=== PATIENT | male | born 1945 | race Caucasian/White ===

== ENCOUNTER 2017-12-14 20:54 | Inpatient (IN) | payer OTHER, MEDICARE ==
--- NOTE | 2017-12-14 21:29 | ER Document Report ---
ED General - General Chief Complaint: Respiratory Distress Stated Complaint: DIFFICULTY BREATHING Time Seen by Provider: 12/14/17 21:27 Mode of Arrival: Medic Information source: Patient, Emergency Med Personnel Notes: This is a 72-year-old man with no known medical history (is not seen a doctor in 10 years) who is brought in by EMS with shortness of breath, cough, congestion and fever. Patient was weak and fell and was on the floor. Patient was treated with 2 dual nebs, 125 mg of Solu-Medrol by EMS and transported to the ER. The patient's significant other states that he was on the floor for approximately 15 minutes. - HPI Onset: Last week Onset/Duration: Gradual Quality of pain: No pain Severity: None Pain Level: Denies Associated symptoms: Fever, Shortness of breath. denies: Chest pain Exacerbated by: Denies Relieved by: Denies Similar symptoms previously: No Recently seen / treated by doctor: No - Related Data Allergies/Adverse Reactions: No Known Allergies Allergy (Unverified 12/14/17 21:08) Past Medical History - General Information source: Patient - Social History Smoking Status: Never Smoker Cigarette use (# per day): No Chew tobacco use (# tins/day): No Smoking Education Provided: No Frequency of alcohol use: None Drug Abuse: None Lives with: Family Family History: None Patient has suicidal ideation: No Patient has homicidal ideation: No - Medical History Medical History: Negative Past Surgical History: Reports: Hx Appendectomy Review of Systems - Review of Systems Constitutional: Chills, Fever EENT: No symptoms reported Cardiovascular: No symptoms reported Respiratory: See HPI Gastrointestinal: No symptoms reported Genitourinary: No symptoms reported Male Genitourinary: No symptoms reported Musculoskeletal: No symptoms reported Skin: No symptoms reported Hematologic/Lymphatic: No symptoms reported Neurological/Psychological: No symptoms reported Physical Exam - Vital signs Vitals: Pulse Ox 100 12/14/17 20:55 Notes: Physical exam: GENERAL: 72-year-old male, alert and oriented 3, tachypneic, wheezing, oxygen saturation 90% on room air. HEAD: Atraumatic, normocephalic. EYES: Pupils equal round and reactive to light, extraocular movements intact, sclera anicteric, conjunctiva are normal. ENT: TMs normal, nares patent, oropharynx clear without exudates. Moist mucous membranes. NECK: Normal range of motion, supple without obvious mass or JVD. LUNGS: Bilateral wheezing HEART: Regular rate and rhythm without murmurs, rubs or gallops. ABDOMEN: Soft, normoactive bowel sounds. No tenderness to palpation. No guarding, no rebound. No masses appreciated. EXTREMITIES: Normal range of motion, no pitting or edema. No clubbing or cyanosis. NEUROLOGICAL: Cranial nerves II through XII grossly intact. Normal speech, moving all extremities. PSYCH: Normal mood, normal affect. SKIN: Warm, Dry, normal turgor, no rashes or lesions noted. Course - Re-evaluation Re-evalutation: 12/15/17 03:09 Note: The patient was having fever and shortness of breath and cough and congestion. Clinically he has pneumonia. Blood cultures were sent and IV antibiotics were started. The patient is found to be in acute renal failure and has rhabdomyolysis. He was given an initial fluid bolus and now is being current and converted over to a bicarb drip. A Britton is to be placed. The plan is to follow renal function, continue IV antibiotics, continue IV fluids. - Vital Signs Vital signs: Temp Pulse Resp BP Pulse Ox 23 H 143/67 H 94 12/15/17 00:00 12/14/17 21:01 12/15/17 00:00 - Laboratory Result Diagrams: 12/14/17 22:05 12/14/17 22:05 Laboratory results interpreted by me: 12/14/17 12/14/17 12/14/17 22:05 22:05 22:05 WBC 12.5 H Hgb 13.0 L RDW 15.2 H Seg Neuts % (Manual) 83 H Band Neutrophils % 8 H Lymphocytes % (Manual) 3 L Abs Neuts (Manual) 11.4 H Abs Lymphs (Manual) 0.4 L Sodium 129.7 L Chloride 92 L Carbon Dioxide 21 L BUN 52 H Creatinine 3.11 H Est GFR ( Amer) 24 L Est GFR (Non-Af Amer) 20 L Glucose 128 H Lactic Acid Direct Bilirubin 0.8 H AST 954 H ALT 140 H Creatine Kinase 42959 H CK-MB (CK-2) 58.20 H 12/14/17 12/15/17 22:05 01:15 WBC Hgb RDW Seg Neuts % (Manual) Band Neutrophils % Lymphocytes % (Manual) Abs Neuts (Manual) Abs Lymphs (Manual) Sodium Chloride Carbon Dioxide BUN Creatinine Est GFR ( Amer) Est GFR (Non-Af Amer) Glucose Lactic Acid 3.1 H 3.2 H Direct Bilirubin AST ALT Creatine Kinase CK-MB (CK-2) - Diagnostic Test Radiology reviewed: Image reviewed, Reports reviewed - Left basilar infiltrate - EKG Interpretation by Me Rate: Tachycardia Rhythm: NSR - EKG shows sinus tachycardia with a ventricular rate of 132, no acute ST-T wave changes Critical Care Note - Critical Care Note Total time excluding time spent on procedures (mins): 120 Discharge - Discharge Clinical Impression: Pneumonia, Rhabdomyolysis, Acute renal failure Condition: Serious Disposition: ADMITTED INPATIENT Admitting Provider: Hospitalist Unit Admitted: [facility]
[2017-12-14] MEDS ORDERED: NORMAL SALINE 1000 ML 1,000 ML IV PRN (21:37)
[2017-12-14] MEDS ORDERED: CEFTRIAXONE 1 GM/D5W RTU 1 GM/50 ML RTUPB IV ONE (21:37)
--- NOTE | 2017-12-14 21:45 | RADIOLOGY REPORT (SQ) ---
EXAM DESCRIPTION: CHEST SINGLE VIEW COMPLETED DATE/TIME: 12/14/2017 9:33 pm REASON FOR STUDY: difficulty breathing COMPARISON: None. EXAM PARAMETERS: NUMBER OF VIEWS: One view. TECHNIQUE: Single frontal radiographic view of the chest acquired. RADIATION DOSE: NA LIMITATIONS: None. FINDINGS: LUNGS AND PLEURA: Patchy left basilar airspace disease. No pneumothorax. No significant p leural effusion. Calcified pleural plaques are present in the right chest. MEDIASTINUM AND HILAR STRUCTURES: Age-appropriate contour. HEART AND VASCULAR STRUCTURES: Heart normal in size. Normal vasculature. BONES: No acute findings. HARDWARE: None in the chest. OTHER: No other significant finding. IMPRESSION: Patchy left basilar airspace disease. TECHNICAL DOCUMENTATION: JOB ID: [id number] [id number] 2010 [employer]- All Rights Reserved
[2017-12-14] MEDS ORDERED: CEFTRIAXONE INJ 1000 MG VIAL ONE (21:50)
[2017-12-14] MEDS ORDERED: AZITHROMYCIN INJ 500 MG VIAL IV ONE (22:22)
[2017-12-14] MEDS ORDERED: IPRATROPIUM/ALBUTEROL 0.5-2.5 MG/3 ML AMPUL NEB ONE (22:26)
[2017-12-14 22:35] LABS: HEMATOCRIT 39.1 % (37.9-51.0); MEAN CORPUSCULAR HEMOGLOBIN 27.1 pg (27.0-33.4); MEAN CORPUSCULAR HGB CONC 33.3 g/dL (32.0-36.0); MEAN CORPUSCULAR VOLUME 81 fl (80-97); PLATELET COUNT 222 10^3/uL (150-450); RED BLOOD COUNT 4.81 10^6/uL (4.35-5.55); RED CELL DISTRIBUTION WIDTH 15.2 % (11.5-14.0); WHITE BLOOD COUNT 12.5 10^3/uL (4.0-10.5)
[2017-12-14 22:50] LABS: ABSOLUTE LYMPHOCYTES# (MANUAL) 0.4 10^3/uL (0.5-4.7); ABSOLUTE MONOCYTES # (MANUAL) 0.8 10^3/uL (0.1-1.4); ABSOLUTE NEUTROPHILS# (MANUAL) 11.4 10^3/uL (1.7-8.2); BAND NEUTROPHILS % (MANUAL) 8 % (3-5); BASOPHILS % (MANUAL) 0 % (0-2); EOSINOPHILS % (MANUAL) 0 % (0-6); LYMPHOCYTES % (MANUAL) 3 % (13-45); MONOCYTES % (MANUAL) 6 % (3-13); SEGMENTED NEUTROPHILS % (MAN) 83 % (42-78); TOTAL CELLS COUNTED 100
[2017-12-14 22:51] LABS: ANISOCYTOSIS SLIGHT; PLATELET COMMENT ADEQUATE; TOXIC GRANULATION SLIGHT
[2017-12-14 23:04] LABS: CREATINE KINASE MB 58.2 ng/mL (<4.55)
[2017-12-14 23:12] LABS: TROPONIN I 0.279 ng/mL
[2017-12-14 23:24] LABS: ALANINE AMINOTRANSFERASE 140 U/L (21-72); ALBUMIN 3.9 g/dL (3.5-5.0); ALKALINE PHOSPHATASE 116 U/L (38-126); ANION GAP 17 (5-19); BILIRUBIN,DIRECT 0.8 mg/dL (0.0-0.4); BLOOD UREA NITROGEN 52 mg/dL (7-20); CALCIUM 9.1 mg/dL (8.4-10.2); CARBON DIOXIDE 21 mmol/L (22-30); CHLORIDE 92 mmol/L (98-107); GLUCOSE 128 mg/dL (75-110); POTASSIUM 3.8 mmol/L (3.6-5.0); SODIUM 129.7 mmol/L (137-145); TOTAL PROTEIN 6.5 g/dL (6.3-8.2)
[2017-12-14] MEDS ORDERED: METOPROLOL TARTRATE PF/INJ 5 MG/5 ML SDV IV ONE (23:38)
[2017-12-14 23:46] LABS: ASPARTATE AMINO TRANSFERASE 954 U/L (17-59)
[2017-12-15 00:53] LABS: CREATINE KINASE 50055 U/L (55-170)
[2017-12-15 01:34] LABS: VENOUS BLOOD BASE EXCESS -4.7 mmol/L; VENOUS BLOOD HCO3 21.3 mmol/L (20-32); VENOUS BLOOD PCO2 42.8 mmHg (35-63); VENOUS BLOOD PH 7.32 (7.30-7.42)
[2017-12-15] MEDS ORDERED: NORMAL SALINE 1000 ML 1,000 ML IV PRN ×2 (01:47→06:17)
[2017-12-15 01:52] LABS: A TYPE INFLUENZA AG NEGATIVE (NEGATIVE); B INFLUENZA AG NEGATIVE (NEGATIVE)
[2017-12-15] MEDS ORDERED: DEXTROSE 5%-WATER 1000 ML 1,000 ML with SODIUM BICARBONATE 100 MEQ IV PRN ×2 (02:51)
--- NOTE | 2017-12-15 03:32 | RADIOLOGY REPORT (SQ) ---
EXAM DESCRIPTION: U/S ABDOMEN LIMITED W/O DOP CLINICAL HISTORY: elevated lfts COMPARISON: None. TECHNIQUE: Real-time sonographic images of the right upper abdomen were obtained using a curved multihertz transducer. FINDINGS: The visualized portions of the pancreas are unremarkable. The visualized portions of the aorta and IVC are unremarkable. The liver has normal contour and increased echogenicity. Hepatopedal flow in the portal vein. Common bile duct measures 0.3 cm. The gallbladder has a normal appearance. No gallstones identified. No wall thickening or pericholecystic fluid. The right kidney measures 10.1 cm. cm in length. No hydronephrosis, solid renal mass, or shadowing calculi. IMPRESSION: 1. No gallstones. 2. Hepatic steatosis.
[2017-12-15] MEDS ORDERED: SODIUM BICARBONATE 8.4% INJ 50 MEQ/50 ML DISP.SYRIN ONE (03:57)
[2017-12-15] MEDS ORDERED: LIDOCAINE 2% URO-JET 5 ML KIT MM ONE (04:03)
[2017-12-15] MEDS ORDERED: ACETAMINOPHEN 325 MG TABLET PO PRN (06:09)
[2017-12-15 06:34] LABS: APPEARANCE,URINE SLIGHTLY-CLOUDY; BILIRUBIN,URINE NEGATIVE (NEGATIVE); COLOR,URINE YELLOW; GLUCOSE, URINE NEGATIVE (NEGATIVE); KETONES,URINE NEGATIVE (NEGATIVE); LEUKOCYTE ESTERASE,URINE NEGATIVE (NEGATIVE); NITRITE,URINE NEGATIVE (NEGATIVE); PROTEIN,URINE NEGATIVE (NEGATIVE); URINE SPECIFIC GRAVITY 1.006; UROBILINOGEN,URINE NEGATIVE mg/dL (<2.0)
--- NOTE | 2017-12-15 06:38 | PDOC H&P ---
History of Present Illness Admission Date/PCP: 12/15/17 04:23 Patient complains of: Loss of consciousness and fall to ground History of Present Illness: DANK CLINE is a 72 year old maleWho was lying on the couch and apparently rolled off onto the ground.He was unconscious and his called EMS patient was brought to the emergency room. Here he was found to have renal failure, rhabdomyolysis, and left lower lobe pneumonia.Patient was started on antibiotics and fluids and was transferred to our care for further management. Past Medical History Medical History: None Past Surgical History Past Surgical History: Reports: Appendectomy Social History Information Source: Patient Lives with: Family, Spouse/Significant other Smoking Status: Never Smoker Frequency of Alcohol Use: Heavy - 2-3 beers on a daily basis Hx Recreational Drug Use: No Drugs: None Hx Prescription Drug Abuse: No - Advance Directive Resuscitation Status: Full Code Family History Family History: Reviewed & Not Pertinent Parental Family History Reviewed: Yes Children Family History Reviewed: NA Sibling(s) Family History Reviewed.: Yes Medication/Allergy Home Medications: No Home Medications 12/15/17 Allergies/Adverse Reactions: No Known Allergies Allergy (Unverified 12/14/17 21:08) Review of Systems Constitutional: ABSENT: chills, fever(s), headache(s), weight gain, weight loss Eyes: ABSENT: visual disturbances Ears: ABSENT: hearing changes Nose, Mouth, and Throat: PRESENT: other - Edentulous Cardiovascular: ABSENT: chest pain, dyspnea on exertion, edema, orthropnea, palpitations Respiratory: PRESENT: cough Gastrointestinal: ABSENT: abdominal pain, constipation, diarrhea, hematemesis, hematochezia, nausea, vomiting Genitourinary: ABSENT: dysuria, hematuria Musculoskeletal: ABSENT: joint swelling Integumentary: ABSENT: rash, wounds Neurological: ABSENT: abnormal gait, abnormal speech, confusion, dizziness, focal weakness, syncope Psychiatric: ABSENT: anxiety, depression, homidical ideation, suicidal ideation Endocrine: ABSENT: cold intolerance, heat intolerance, polydipsia, polyuria Physical Exam Vital Signs: Temp Pulse Resp BP Pulse Ox 99.0 F 20 139/74 H 95 12/15/17 04:30 12/15/17 05:01 12/15/17 05:01 12/15/17 05:01 General appearance: PRESENT: no acute distress, cooperative, well-developed Head exam: PRESENT: atraumatic, normocephalic Eye exam: PRESENT: conjunctiva pink, EOMI, PERRLA. ABSENT: scleral icterus Ear exam: PRESENT: normal external ear exam Teeth exam: PRESENT: edentulous Neck exam: ABSENT: carotid bruit, JVD, lymphadenopathy, thyromegaly Respiratory exam: PRESENT: clear to auscultation sanjana, wheezes. ABSENT: accessory muscle use, rales, rhonchi Cardiovascular exam: PRESENT: RRR. ABSENT: diastolic murmur, rubs, systolic murmur GI/Abdominal exam: PRESENT: normal bowel sounds, soft. ABSENT: distended, guarding, mass, organolmegaly, rebound, tenderness Rectal exam: PRESENT: deferred Gentrourinary exam: PRESENT: indwelling catheter Extremities exam: PRESENT: full ROM. ABSENT: calf tenderness, clubbing, pedal edema Neurological exam: PRESENT: alert, awake, oriented to person, oriented to place , oriented to time, oriented to situation, CN II-XII grossly intact. ABSENT: motor sensory deficit Psychiatric exam: PRESENT: appropriate affect, normal mood. ABSENT: homicidal ideation, suicidal ideation Skin exam: PRESENT: abrasion - On right knee Results Laboratory Results: 12/15/17 05:10 Lactic Acid 1.5 12/14/17 12/14/17 12/14/17 22:05 22:05 22:05 WBC 12.5 H Hgb 13.0 L Hct 39.1 Plt Count 222 VBG pH VBG pCO2 VBG HCO3 Sodium 129.7 L Potassium 3.8 Chloride 92 L Carbon Dioxide 21 L Anion Gap 17 BUN 52 H Creatinine 3.11 H Glucose 128 H Lactic Acid AST 954 H ALT 140 H Creatine Kinase 29529 H Troponin I 0.279 NT-Pro-B Natriuret Pep 793 Total Protein 6.5 Albumin 3.9 Influenza A (Rapid) Influenza B (Rapid) 12/14/17 12/15/17 12/15/17 22:05 01:15 01:15 WBC Hgb Hct Plt Count VBG pH 7.32 VBG pCO2 42.8 VBG HCO3 21.3 Sodium Potassium Chloride Carbon Dioxide Anion Gap BUN Creatinine Glucose Lactic Acid 3.1 H AST ALT Creatine Kinase Troponin I 0.242 NT-Pro-B Natriuret Pep Total Protein Albumin Influenza A (Rapid) Influenza B (Rapid) 12/15/17 12/15/17 12/15/17 01:15 01:20 05:10 WBC Hgb Hct Plt Count VBG pH VBG pCO2 VBG HCO3 Sodium Potassium Chloride Carbon Dioxide Anion Gap BUN Creatinine Glucose Lactic Acid 3.2 H 1.5 AST ALT Creatine Kinase Troponin I NT-Pro-B Natriuret Pep Total Protein Albumin Influenza A (Rapid) NEGATIVE Influenza B (Rapid) NEGATIVE Impressions: Chest X-Ray 12/14/17 21:02 IMPRESSION: Patchy left basilar airspace disease. Abdomen Ultrasound 12/15/17 00:23 IMPRESSION: 1. No gallstones. 2. Hepatic steatosis. Assessment & Plan - Diagnosis (1) Rhabdomyolysis Qualifiers: Rhabdomyolysis type: non-traumatic Qualified Code(s): M62.82 - Rhabdomyolysis Is this a current diagnosis for this admission?: Yes (2) Hyponatremia Is this a current diagnosis for this admission?: Yes (3) Renal failure Qualifiers: Renal failure chronicity: unspecified chronicity Qualified Code(s): N19 - Unspecified kidney failure Is this a current diagnosis for this admission?: Yes (4) COPD exacerbation Is this a current diagnosis for this admission?: Yes (5) Pneumonia Qualifiers: Pneumonia type: due to unspecified organism Laterality: left Lung location: lower lobe of lung Qualified Code(s): J18.1 - Lobar pneumonia, unspecified organism Is this a current diagnosis for this admission?: Yes - Time Time Spent: 30 to 50 Minutes - Inpatient Certification Based on my medical assessment, after consideration of the patient's comorbidities, presenting symptoms, or acuity I expect that the services needed warrant INPATIENT care.: Yes I certify that my determination is in accordance with my understanding of Medicare's requirements for reasonable and necessary INPATIENT services [42 CFR 412.3e].: Yes Medical Necessity: Significant Comorbidiites Make Outpatient Treatment Too Risky , Need For IV Fluids, Need for Nebulizer Therapy and Monitoring of Response, Need for IV Antibiotics, Risk of Complication if Not Cared For in Hospital - Plan Summary Plan Summary: Patient has been started on antibiotics in the emergency room. These will be continued. He will continue to receive fluids and careful monitoring of his renal function and CK. If his function deteriorates he will probably need a nephrology consultation. He will be placed on a potassium restriction orally.Patient will be treated with bronchodilators as needed.DVT prophylaxis with unfractionated heparin
[2017-12-15] MEDS: IPRATROPIUM BROMIDE 0.02% NEB 0.5 MG/2.5 ML AMPUL NEB SCH ×3 (09:43→23:57)
--- NOTE | 2017-12-15 12:02 | EKG REPORT ---
SEVERITY:- BORDERLINE ECG - SINUS RHYTHM PROBABLE LEFT ATRIAL ABNORMALITY : Confirmed by: Nupur Bravo 15-Dec-2017 12:01:10
--- NOTE | 2017-12-15 12:02 | EKG REPORT ---
SEVERITY:- OTHERWISE NORMAL ECG - SINUS TACHYCARDIA : Confirmed by: Nupur Bravo 15-Dec-2017 12:01:14
[2017-12-15] MEDS ORDERED: RINGERS SOLUTION,LACTATED 1,000 ML IV PRN (12:14)
--- NOTE | 2017-12-15 12:29 | Progress Note ---
Provider Note Provider Note: Patient seen, chart reviewed, patient examined. Will discontinue fluids with bicarb. Will check BMP. Patient's repeat CK is at 36,000. Will place patient on Ringer's lactate running at 150. Will monitor patient for ETOH withdrawal. Will place on Klonopin 1 mg Q12 hours with parameter to hold for sedation. Pt with elevated Troponin most likely related to pt renal function. Will check 2 D echo. Pt denies chest pain.
[2017-12-15 13:00] LABS: ANION GAP 9 (5-19); BLOOD UREA NITROGEN 45 mg/dL (7-20); CALCIUM 8.7 mg/dL (8.4-10.2); CARBON DIOXIDE 25 mmol/L (22-30); CHLORIDE 101 mmol/L (98-107); GLUCOSE 211 mg/dL (75-110); POTASSIUM 3.8 mmol/L (3.6-5.0); SODIUM 135.1 mmol/L (137-145)
[2017-12-15] MEDS: HEPARIN SOD (PORCINE) 5,000 UNIT/ML 1 ML SYRINGE SUBCUT SCH ×2 (15:20→23:05)
[2017-12-15] MEDS: DEXTROSE 5%-1/2 NORMAL SALINE 1,000 ML IV PRN (15:20)
[2017-12-15 19:03] LABS: ANION GAP 9 (5-19); BLOOD UREA NITROGEN 42 mg/dL (7-20); CALCIUM 8.6 mg/dL (8.4-10.2); CARBON DIOXIDE 25 mmol/L (22-30); CHLORIDE 102 mmol/L (98-107); GLUCOSE 156 mg/dL (75-110); POTASSIUM 3.6 mmol/L (3.6-5.0); SODIUM 136.2 mmol/L (137-145)
[2017-12-15] MEDS ORDERED: CEFTRIAXONE 1 GM/D5W RTU 1 GM/50 ML RTUPB IV SCH (22:00)
[2017-12-15] MEDS ORDERED: CLONAZEPAM 1 MG TABLET PO PRN (22:00)
[2017-12-15] MEDS: CEFTRIAXONE SODIUM 1,000 MG in NORMAL SALINE 50 ML IV SCH (23:04)
[2017-12-15] MEDS: AZITHROMYCIN 500 MG in DEXTROSE 5%-WATER 250 ML IV SCH (23:04)
[2017-12-15] MEDS: MAG HYDROX/AL HYDROX/SIMETH SUSP 30 ML UDCUP PO PRN (23:38)
[2017-12-16 05:20] LABS: ABSOLUTE LYMPHOCYTES (AUTO) 0.6 10^3/uL (0.5-4.7); ABSOLUTE MONOCYTES (AUTO) 0.8 10^3/uL (0.1-1.4); ABSOLUTE NEUT (AUTO) 9.6 10^3/uL (1.7-8.2); BASOPHILS % (AUTO) 0.3 % (0-2); HEMATOCRIT 36.2 % (37.9-51.0); HEMOGLOBIN 12.3 g/dL (13.5-17.0); LYMPHOCYTES % (AUTO) 5.2 % (13-45); MEAN CORPUSCULAR HEMOGLOBIN 27.4 pg (27.0-33.4); MEAN CORPUSCULAR HGB CONC 33.9 g/dL (32.0-36.0); MEAN CORPUSCULAR VOLUME 81 fl (80-97); PLATELET COUNT 207 10^3/uL (150-450); RED BLOOD COUNT 4.47 10^6/uL (4.35-5.55); RED CELL DISTRIBUTION WIDTH 14.9 % (11.5-14.0); SEGMENTED NEUTROPHILS % (AUTO) 87.5 % (42-78); TOTAL CELLS COUNTED % (AUTO) 100 %; WHITE BLOOD COUNT 10.9 10^3/uL (4.0-10.5)
[2017-12-16] MEDS: FAMOTIDINE 20 MG TABLET PO SCH ×2 (05:52→21:05)
[2017-12-16] MEDS: HEPARIN SOD (PORCINE) 5,000 UNIT/ML 1 ML SYRINGE SUBCUT SCH ×3 (05:53→21:05)
--- NOTE | 2017-12-16 07:40 | EKG REPORT ---
SEVERITY:- NORMAL ECG - SINUS RHYTHM : Confirmed by: Maddy Ley MD 16-Dec-2017 07:39:34
[2017-12-16] MEDS: IPRATROPIUM BROMIDE 0.02% NEB 0.5 MG/2.5 ML AMPUL NEB SCH ×2 (08:58→16:28)
[2017-12-16] MEDS: MULTIVITAMIN TABLET PO SCH (10:09)
[2017-12-16] MEDS: THIAMINE HCL 100 MG TABLET PO SCH (10:09)
[2017-12-16] MEDS: FOLIC ACID 1 MG TABLET PO SCH (10:09)
[2017-12-16 10:53] LABS: ANION GAP 8 (5-19); BLOOD UREA NITROGEN 32 mg/dL (7-20); CALCIUM 8.5 mg/dL (8.4-10.2); CARBON DIOXIDE 25 mmol/L (22-30); CHLORIDE 103 mmol/L (98-107); GLUCOSE 152 mg/dL (75-110); POTASSIUM 3.7 mmol/L (3.6-5.0); SODIUM 136.4 mmol/L (137-145)
[2017-12-16 11:33] LABS: CREATINE KINASE 18876 U/L (55-170)
[2017-12-16] MEDS: MAG HYDROX/AL HYDROX/SIMETH SUSP 30 ML UDCUP PO PRN (15:15)
--- NOTE | 2017-12-16 17:54 | PDOC PROGRESS REPORT ---
Subjective Progress Note for:: 12/16/17 Subjective:: Pt states that his breathing is a little labored. Pt states that he is otherwise he is feeling better. Reason For Visit: PNEUMONIA, RENAL FAILURE, RHABDO Physical Exam Vital Signs: Temp Pulse Resp BP Pulse Ox 98.6 F 97 20 144/66 H 95 12/16/17 11:45 12/16/17 16:28 12/16/17 16:28 12/16/17 11:45 12/16/17 16:28 Pulse Oximeter Continuous Start: 12/15/17 06: 09 Freq: RTQ4 Status: Active Document 12/16/17 16:28 TPO (Rec: 12/16/17 16:36 TPO [email or web address]) Pulse Oximetry Assessment Oxygen Saturation (92-100) 95 Oxygen Flow Rate (L/min) 2 Oxygen Delivery Method Nasal Cannula Fraction of Inspired Oxygen (FIO2) 28 Equipment Usage Equipment in Use Continuous SpO2 Machine # 3 Intake & Output 12/15/17 12/16/17 12/17/17 06:59 06:59 06:59 Intake Total 1908 330 Output Total 2850 730 Balance -942 -400 Weight 81 kg General appearance: PRESENT: no acute distress, well-developed, well-nourished Head exam: PRESENT: atraumatic, normocephalic Eye exam: PRESENT: conjunctiva pink, EOMI. ABSENT: scleral icterus Ear exam: PRESENT: normal external ear exam Mouth exam: PRESENT: moist, tongue midline Neck exam: ABSENT: carotid bruit, JVD, lymphadenopathy, thyromegaly Respiratory exam: PRESENT: wheezes - right side and coarse breath soundsl, other - + coarse breath sound on the right side.. ABSENT: rales, rhonchi Cardiovascular exam: PRESENT: RRR. ABSENT: diastolic murmur, rubs, systolic murmur Pulses: PRESENT: normal dorsalis pedis pul Vascular exam: PRESENT: normal capillary refill GI/Abdominal exam: PRESENT: normal bowel sounds, soft. ABSENT: distended, guarding, mass, organolmegaly, rebound, tenderness Rectal exam: PRESENT: deferred Extremities exam: PRESENT: full ROM. ABSENT: calf tenderness, clubbing, pedal edema Neurological exam: PRESENT: alert, awake, oriented to person, oriented to place , oriented to time, oriented to situation, CN II-XII grossly intact. ABSENT: motor sensory deficit Psychiatric exam: PRESENT: appropriate affect, normal mood. ABSENT: homicidal ideation, suicidal ideation Skin exam: PRESENT: dry, intact, warm. ABSENT: cyanosis, rash Results Laboratory Results: 12/16/17 04:19 12/16/17 10:18 12/15/17 12/16/17 12/16/17 18:30 04:19 10:18 WBC 10.9 H RBC 4.47 Hgb 12.3 L Hct 36.2 L MCV 81 MCH 27.4 MCHC 33.9 RDW 14.9 H Plt Count 207 Seg Neutrophils % 87.5 H Lymphocytes % 5.2 L Monocytes % 7.0 Eosinophils % 0.0 Basophils % 0.3 Absolute Neutrophils 9.6 H Absolute Lymphocytes 0.6 Absolute Monocytes 0.8 Absolute Eosinophils 0.0 Absolute Basophils 0.0 Sodium 136.2 L 136.4 L Potassium 3.6 3.7 Chloride 102 103 Carbon Dioxide 25 25 Anion Gap 9 8 BUN 42 H 32 H Creatinine 1.60 H 1.10 Est GFR ( Amer) 52 L > 60 Est GFR (Non-Af Amer) 43 L > 60 Glucose 156 H 152 H Calcium 8.6 8.5 12/15/17 12/15/17 12/16/17 10:00 18:30 04:19 Creatine Kinase 96981 H 30467 H 23183 H 12/16/17 10:18 Creatine Kinase 03812 H Impressions: Chest X-Ray 12/14/17 21:02 IMPRESSION: Patchy left basilar airspace disease. Abdomen Ultrasound 12/15/17 00:23 IMPRESSION: 1. No gallstones. 2. Hepatic steatosis. Assessment & Plan - Diagnosis (1) Renal failure Qualifiers: Renal failure chronicity: unspecified chronicity Qualified Code(s): N19 - Unspecified kidney failure Is this a current diagnosis for this admission?: Yes Plan: Secondary to Dehydration and Rhabdo: Resolved. Renal function back to normal. (2) Elevated troponin Is this a current diagnosis for this admission?: Yes Plan: in setting for Renal failure and fall: No chest pain. Troponins trended downward. No additional work up. 2 D Echo pending. (3) EtOH dependence Is this a current diagnosis for this admission?: Yes Plan: Pt placed on Klonopin, MVI, Folic acid, and thiamine. (4) COPD exacerbation Is this a current diagnosis for this admission?: Yes Plan: Will place on DuoNeb Q 8 hours. (5) Pneumonia Qualifiers: Pneumonia type: due to unspecified organism Laterality: left Lung location: lower lobe of lung Qualified Code(s): J18.1 - Lobar pneumonia, unspecified organism Is this a current diagnosis for this admission?: Yes Plan: Rocephin and Azithromycin. Will repeat CXR. (6) Hyponatremia Is this a current diagnosis for this admission?: Yes Plan: Resolving. Will continue IVFs. (7) Rhabdomyolysis Qualifiers: Rhabdomyolysis type: non-traumatic Qualified Code(s): M62.82 - Rhabdomyolysis Is this a current diagnosis for this admission?: Yes Plan: Will continue CPK. (8) DVT prophylaxis Is this a current diagnosis for this admission?: Yes Plan: Heparin - Time Time Spent with patient: 15-24 minutes
--- NOTE | 2017-12-16 18:55 | XCELERA REPORT ---
[address] [address] Transthoracic Echocardiogram Report Name: DANK CLINE Age: 72 yrs Gender: Male : 1945 Patient Status: Inpatient Patient Location: [address] [place] [address] Study Date: 12/16/2017 01:36 PM Height: 67 in Weight: 175 lb BSA: 1.9 m2 Procedure: A complete two-dimensional transthoracic echocardiogram was performed (2D, M-mode, spectral and color flow Doppler). The study was technically difficult with many images being suboptimal in quality. Reason For Study: elevated troponin Ordering Physician: BLAS FARRELL Performed By: Melissa Caro Interpretation Summary The study was technically difficult with many images being suboptimal in quality. The left ventricular ejection fraction is normal. There is mild concentric left ventricular hypertrophy. The left ventricle is grossly normal size. Regional wall motion abnormalities cannot be excluded due to limited visualization. Doppler measurements suggest pseudonormalized left ventricular relaxation, which is associated with grade II/IV or mild to moderate diastolic dysfunction The right ventricular systolic function is normal. The right atrium is normal. The left atrial size is normal. There is a trace to mild amount of mitral regurgitation There is no mitral valve stenosis. No aortic regurgitation is present. There is no aortic valve stenosis There is a trace or physiologic amount of tricuspid regurgitation Tricuspid regurgitation jet envelope not well defined to measure RV systolic pressure accurately. The aortic root is not well visualized. The inferior vena cava appeared normal and decreased > 50% with respiration (RAP 5-10 mmHg) Minimal pericardial effusion. MMode/2D Measurements & Calculations RVDd: 2.3 cm LVIDd: 5.0 cm FS: 20.9 % Ao root diam: IVSd: 0.71 cm LVIDs: 4.0 cm EDV(Teich): 2.3 cm LVPWd: 0.74 cm 120.6 ml Ao root area: ESV(Teich): 69.6 ml 4.2 cm2 EF(Teich): LA dimension: 42.3 % 2.8 cm LVLd ap4: 8.0 cm SV(MOD-sp4): 35.0 ml LA A2Cs: LA A4Cs: 12.1 cm2 EDV(MOD-sp4): 18.2 cm2 70.0 ml LVLs ap4: 6.5 cm ESV(MOD-sp4): 35.0 ml EF(MOD-sp4): 50.0 % LA length: LA Vol Index (BP): LA Volume: 4.0 cm 24.4 ml/m2 46.7 ml Doppler Measurements & Calculations MV E max bhavesh: MV P1/2t max bhavesh: Ao V2 max: LV V1 max P.7 cm/sec 99.2 cm/sec 110.4 cm/sec 3.6 mmHg MV A max bhavesh: MV P1/2t: 42.3 msec Ao max PG: LV V1 max: 110.6 cm/sec 4.9 mmHg 94.3 cm/sec MV E/A: 0.88 MVA(P1/2t): 5.2 cm2 MV dec slope: 686.9 cm/sec2 PA V2 max: TR max bhavesh: 86.9 cm/sec 215.8 cm/sec PA max P.0 mmHgTR max P.6 mmHg Left Ventricle The left ventricle is grossly normal size. There is mild concentric left ventricular hypertrophy. The left ventricular ejection fraction is normal. Doppler measurements suggest pseudonormalized left ventricular relaxation, which is associated with grade II/IV or mild to moderate diastolic dysfunction. Regional wall motion abnormalities cannot be excluded due to limited visualization. Right Ventricle The right ventricle is grossly normal size. The right ventricular systolic function is normal. Atria The right atrium is normal. The left atrial size is normal. Interarterial septum not well visualized and not well dopplered. Cannot comment on ASD/PFO presence. Mitral Valve The mitral valve leaflets are sclerotic, but show no functional abnormalities. There is no mitral valve stenosis. There is a trace to mild amount of mitral regurgitation. Aortic Valve The aortic valve is not well visualized secondary to technical limitations. There is no aortic valve stenosis. No aortic regurgitation is present. Tricuspid Valve The tricuspid valve is not well visualized secondary to technical limitations. There is no tricuspid stenosis. There is a trace or physiologic amount of tricuspid regurgitation. Tricuspid regurgitation jet envelope not well defined to measure RV systolic pressure accurately. Pulmonic Valve The pulmonic valve is not well visualized. Great Vessels The aortic root is not well visualized. The inferior vena cava appeared normal and decreased > 50% with respiration (RAP 5-10 mmHg). Effusions Minimal pericardial effusion. : BLAS FARRELL Shyamal
[2017-12-16 18:58] LABS: ANION GAP 5 (5-19); BLOOD UREA NITROGEN 29 mg/dL (7-20); CALCIUM 8.6 mg/dL (8.4-10.2); CARBON DIOXIDE 29 mmol/L (22-30); CHLORIDE 100 mmol/L (98-107); GLUCOSE 104 mg/dL (75-110); POTASSIUM 3.6 mmol/L (3.6-5.0); SODIUM 133.8 mmol/L (137-145)
--- NOTE | 2017-12-16 19:21 | RADIOLOGY REPORT (SQ) ---
EXAM DESCRIPTION: CHEST PA/LAT COMPLETED DATE/TIME: 12/16/2017 6:58 pm REASON FOR STUDY: Shortness of breath. COMPARISON: None. NUMBER OF VIEWS: Two view. TECHNIQUE: Frontal and lateral radiographic views of the chest acquired. LIMITATIONS: None. FINDINGS: LUNGS AND PLEURA: Peribronchial cuffing and interstitial changes. Patchy consolidation in the left lower lobe. No effusion, or pneumothorax. MEDIASTINUM AND HILAR STRUCTURES: Age-appropriate. HEART AND VASCULAR STRUCTURES: Mild cardiac enlargement. BONES: No acute findings. HARDWARE: None in the chest. OTHER: No other significant finding. IMPRESSION: Patchy consolidation in the left lower lobe. TECHNICAL DOCUMENTATION: JOB ID: [id number] [id number] 2010 [employer]- All Rights Reserved
[2017-12-16 19:30] LABS: CREATINE KINASE 14744 U/L (55-170)
[2017-12-16] MEDS: DEXTROSE 5%-1/2 NORMAL SALINE 1,000 ML IV PRN (19:58)
[2017-12-16] MEDS: CEFTRIAXONE SODIUM 1,000 MG in NORMAL SALINE 50 ML IV SCH (21:05)
[2017-12-16] MEDS: AZITHROMYCIN 500 MG in DEXTROSE 5%-WATER 250 ML IV SCH (22:28)
[2017-12-17] MEDS: IPRATROPIUM/ALBUTEROL 0.5-2.5 MG/3 ML AMPUL NEB SCH ×3 (00:07→15:44)
[2017-12-17] MEDS: IPRATROPIUM BROMIDE 0.02% NEB 0.5 MG/2.5 ML AMPUL NEB SCH ×2 (00:10→08:17)
[2017-12-17] MEDS: MAG HYDROX/AL HYDROX/SIMETH SUSP 30 ML UDCUP PO PRN (05:34)
[2017-12-17] MEDS: HEPARIN SOD (PORCINE) 5,000 UNIT/ML 1 ML SYRINGE SUBCUT SCH ×3 (05:34→21:27)
[2017-12-17 06:26] LABS: ABSOLUTE LYMPHOCYTES (AUTO) 1.2 10^3/uL (0.5-4.7); ABSOLUTE MONOCYTES (AUTO) 0.6 10^3/uL (0.1-1.4); ABSOLUTE NEUT (AUTO) 5.7 10^3/uL (1.7-8.2); BASOPHILS % (AUTO) 0.2 % (0-2); EOSINOPHILS % (AUTO) 0.1 % (0-6); HEMATOCRIT 35.6 % (37.9-51.0); HEMOGLOBIN 11.7 g/dL (13.5-17.0); LYMPHOCYTES % (AUTO) 15.9 % (13-45); MEAN CORPUSCULAR HEMOGLOBIN 27.2 pg (27.0-33.4); MEAN CORPUSCULAR HGB CONC 32.9 g/dL (32.0-36.0); MEAN CORPUSCULAR VOLUME 83 fl (80-97); MONOCYTES % (AUTO) 8.2 % (3-13); PLATELET COUNT 169 10^3/uL (150-450); RED BLOOD COUNT 4.31 10^6/uL (4.35-5.55); RED CELL DISTRIBUTION WIDTH 15.3 % (11.5-14.0); SEGMENTED NEUTROPHILS % (AUTO) 75.6 % (42-78); TOTAL CELLS COUNTED % (AUTO) 100 %; WHITE BLOOD COUNT 7.5 10^3/uL (4.0-10.5)
[2017-12-17] MEDS: DEXTROSE 5%-1/2 NORMAL SALINE 1,000 ML IV PRN (07:12)
[2017-12-17] MEDS: FOLIC ACID 1 MG TABLET PO SCH (10:28)
[2017-12-17] MEDS: MULTIVITAMIN TABLET PO SCH (10:28)
[2017-12-17] MEDS: FAMOTIDINE 20 MG TABLET PO SCH ×2 (10:28→21:28)
[2017-12-17] MEDS: THIAMINE HCL 100 MG TABLET PO SCH (10:28)
[2017-12-17 11:08] LABS: ANION GAP 6 (5-19); BLOOD UREA NITROGEN 21 mg/dL (7-20); CALCIUM 8.1 mg/dL (8.4-10.2); CARBON DIOXIDE 30 mmol/L (22-30); CHLORIDE 99 mmol/L (98-107); GLUCOSE 98 mg/dL (75-110); POTASSIUM 3.2 mmol/L (3.6-5.0); SODIUM 134.8 mmol/L (137-145)
[2017-12-17 11:26] LABS: CREATINE KINASE 11429 U/L (55-170)
[2017-12-17] MEDS: POTASSI CL 20 MEQ/50 ML RIDER 20 MEQ/50 ML RTUPB IV SCH ×2 (17:05→20:02)
[2017-12-17 18:52] LABS: ANION GAP 6 (5-19); BLOOD UREA NITROGEN 17 mg/dL (7-20); CALCIUM 8.1 mg/dL (8.4-10.2); CARBON DIOXIDE 30 mmol/L (22-30); CHLORIDE 98 mmol/L (98-107); GLUCOSE 101 mg/dL (75-110); POTASSIUM 3.1 mmol/L (3.6-5.0); SODIUM 134.1 mmol/L (137-145)
[2017-12-17 19:30] LABS: CREATINE KINASE 9264 U/L (55-170)
--- NOTE | 2017-12-17 19:38 | PDOC PROGRESS REPORT ---
Subjective Progress Note for:: 12/17/17 Subjective:: Pt states that he is doing better. Patient states that he is coughing up phlegm. Reason For Visit: PNEUMONIA, RENAL FAILURE, RHABDO Physical Exam Vital Signs: Temp Pulse Resp BP Pulse Ox 98.9 F 106 H 16 118/72 95 12/17/17 15:58 12/17/17 15:58 12/17/17 15:58 12/17/17 15:58 12/17/17 15:58 Pulse Oximeter Continuous Start: 12/15/17 06: 09 Freq: RTQ4 Status: Active Document 12/17/17 15:44 [facility] (Rec: 12/17/17 17:08 [facility] [email or web address]) Pulse Oximetry Assessment Oxygen Saturation (92-100) 98 Oxygen Flow Rate (L/min) 2 Oxygen Delivery Method Nasal Cannula Equipment Usage Equipment in Use Continuous SpO2 Machine # 3 Intake & Output 12/16/17 12/17/17 12/18/17 06:59 06:59 06:59 Intake Total 1908 4046 466 Output Total 2850 1730 1810 Balance -942 2316 -1344 Weight 81 kg 81 kg General appearance: PRESENT: no acute distress, well-developed, well-nourished Head exam: PRESENT: atraumatic, normocephalic Eye exam: PRESENT: conjunctiva pink, EOMI. ABSENT: scleral icterus Ear exam: PRESENT: normal external ear exam Mouth exam: PRESENT: moist, tongue midline Neck exam: ABSENT: carotid bruit, JVD, lymphadenopathy, thyromegaly Respiratory exam: PRESENT: clear to auscultation sanjana. ABSENT: rales, rhonchi, wheezes Cardiovascular exam: PRESENT: RRR. ABSENT: diastolic murmur, rubs, systolic murmur Pulses: PRESENT: normal dorsalis pedis pul Vascular exam: PRESENT: normal capillary refill GI/Abdominal exam: PRESENT: normal bowel sounds, soft. ABSENT: distended, guarding, mass, organolmegaly, rebound, tenderness Rectal exam: PRESENT: deferred Extremities exam: PRESENT: full ROM. ABSENT: calf tenderness, clubbing, pedal edema Neurological exam: PRESENT: alert, awake, oriented to person, oriented to place , oriented to time, oriented to situation, CN II-XII grossly intact. ABSENT: motor sensory deficit Psychiatric exam: PRESENT: appropriate affect, normal mood. ABSENT: homicidal ideation, suicidal ideation Skin exam: PRESENT: dry, intact, warm. ABSENT: cyanosis, rash Results Laboratory Results: 12/17/17 05:24 12/17/17 18:00 12/16/17 12/17/17 12/17/17 18:20 05:24 10:25 WBC 7.5 RBC 4.31 L Hgb 11.7 L Hct 35.6 L MCV 83 MCH 27.2 MCHC 32.9 RDW 15.3 H Plt Count 169 Seg Neutrophils % 75.6 Lymphocytes % 15.9 Monocytes % 8.2 Eosinophils % 0.1 Basophils % 0.2 Absolute Neutrophils 5.7 Absolute Lymphocytes 1.2 Absolute Monocytes 0.6 Absolute Eosinophils 0.0 Absolute Basophils 0.0 Sodium 133.8 L 134.8 L Potassium 3.6 3.2 L Chloride 100 99 Carbon Dioxide 29 30 Anion Gap 5 6 BUN 29 H 21 H Creatinine 1.09 1.01 Est GFR ( Amer) > 60 > 60 Est GFR (Non-Af Amer) > 60 > 60 Glucose 104 98 Calcium 8.6 8.1 L 12/17/17 18:00 WBC RBC Hgb Hct MCV MCH MCHC RDW Plt Count Seg Neutrophils % Lymphocytes % Monocytes % Eosinophils % Basophils % Absolute Neutrophils Absolute Lymphocytes Absolute Monocytes Absolute Eosinophils Absolute Basophils Sodium 134.1 L Potassium 3.1 L Chloride 98 Carbon Dioxide 30 Anion Gap 6 BUN 17 Creatinine 0.92 Est GFR ( Amer) > 60 Est GFR (Non-Af Amer) > 60 Glucose 101 Calcium 8.1 L 12/15/17 12/15/17 12/16/17 10:00 18:30 04:19 Creatine Kinase 39298 H 82158 H 54858 H 12/16/17 12/16/17 12/17/17 10:18 18:20 05:24 Creatine Kinase 58536 H 55863 H 43542 H 12/17/17 12/17/17 10:25 18:00 Creatine Kinase 16236 H 9264 H Impressions: Abdomen Ultrasound 12/15/17 00:23 IMPRESSION: 1. No gallstones. 2. Hepatic steatosis. Chest X-Ray 12/16/17 00:00 IMPRESSION: Patchy consolidation in the left lower lobe. Assessment & Plan - Diagnosis (1) Renal failure Qualifiers: Renal failure chronicity: unspecified chronicity Qualified Code(s): N19 - Unspecified kidney failure Is this a current diagnosis for this admission?: Yes Plan: Secondary to Dehydration and Rhabdo: Resolved. (2) Elevated troponin Is this a current diagnosis for this admission?: Yes Plan: in setting for Renal failure and fall: No chest pain. Troponins trended downward. No additional work up. 2 D Echo within normal. (3) EtOH dependence Is this a current diagnosis for this admission?: Yes Plan: Pt placed on Klonopin, MVI, Folic acid, and thiamine. (4) COPD exacerbation Is this a current diagnosis for this admission?: Yes Plan: Will place on DuoNeb Q 8 hours. (5) Pneumonia Qualifiers: Pneumonia type: due to unspecified organism Laterality: left Lung location: lower lobe of lung Qualified Code(s): J18.1 - Lobar pneumonia, unspecified organism Is this a current diagnosis for this admission?: Yes Plan: Rocephin and Azithromycin. (6) Hyponatremia Is this a current diagnosis for this admission?: Yes Plan: Resolving. Will continue IVFs. (7) Rhabdomyolysis Qualifiers: Rhabdomyolysis type: non-traumatic Qualified Code(s): M62.82 - Rhabdomyolysis Is this a current diagnosis for this admission?: Yes Plan: Will continue to check CPK. (8) DVT prophylaxis Is this a current diagnosis for this admission?: Yes Plan: Heparin - Time Time Spent with patient: 15-24 minutes
[2017-12-17] MEDS: CEFTRIAXONE SODIUM 1,000 MG in NORMAL SALINE 50 ML IV SCH (21:29)
[2017-12-17] MEDS: AZITHROMYCIN 500 MG in DEXTROSE 5%-WATER 250 ML IV SCH (22:30)
[2017-12-18] MEDS: IPRATROPIUM/ALBUTEROL 0.5-2.5 MG/3 ML AMPUL NEB SCH ×3 (00:15→16:23)
[2017-12-18 05:54] LABS: ABSOLUTE LYMPHOCYTES (AUTO) 1.3 10^3/uL (0.5-4.7); ABSOLUTE MONOCYTES (AUTO) 0.8 10^3/uL (0.1-1.4); ABSOLUTE NEUT (AUTO) 3.9 10^3/uL (1.7-8.2); BASOPHILS % (AUTO) 0.3 % (0-2); EOSINOPHILS % (AUTO) 0.2 % (0-6); HEMOGLOBIN 11.7 g/dL (13.5-17.0); LYMPHOCYTES % (AUTO) 21.9 % (13-45); MEAN CORPUSCULAR HEMOGLOBIN 27.3 pg (27.0-33.4); MEAN CORPUSCULAR HGB CONC 33.5 g/dL (32.0-36.0); MEAN CORPUSCULAR VOLUME 81 fl (80-97); MONOCYTES % (AUTO) 12.5 % (3-13); PLATELET COUNT 176 10^3/uL (150-450); RED BLOOD COUNT 4.31 10^6/uL (4.35-5.55); RED CELL DISTRIBUTION WIDTH 14.9 % (11.5-14.0); SEGMENTED NEUTROPHILS % (AUTO) 65.1 % (42-78); TOTAL CELLS COUNTED % (AUTO) 100 %
[2017-12-18] MEDS: HEPARIN SOD (PORCINE) 5,000 UNIT/ML 1 ML SYRINGE SUBCUT SCH ×3 (06:21→21:53)
[2017-12-18] MEDS: DOCUSATE SODIUM 100 MG CAPSULE PO SCH (10:01)
[2017-12-18] MEDS: FOLIC ACID 1 MG TABLET PO SCH (10:02)
[2017-12-18] MEDS: FAMOTIDINE 20 MG TABLET PO SCH ×2 (10:02→21:53)
[2017-12-18] MEDS: THIAMINE HCL 100 MG TABLET PO SCH (10:02)
[2017-12-18] MEDS: MULTIVITAMIN TABLET PO SCH (10:02)
[2017-12-18 10:34] LABS: ANION GAP 7 (5-19); BLOOD UREA NITROGEN 15 mg/dL (7-20); CALCIUM 8.4 mg/dL (8.4-10.2); CARBON DIOXIDE 27 mmol/L (22-30); CHLORIDE 100 mmol/L (98-107); GLUCOSE 126 mg/dL (75-110); POTASSIUM 3.6 mmol/L (3.6-5.0); SODIUM 134.4 mmol/L (137-145)
[2017-12-18] MEDS: DEXTROSE 5%-1/2 NORMAL SALINE 1,000 ML IV PRN (13:25)
[2017-12-18] MEDS: MAG HYDROX/AL HYDROX/SIMETH SUSP 30 ML UDCUP PO PRN (16:10)
[2017-12-18] MEDS ORDERED: GLYCERIN (PEDIATRIC) SUPP.RECT PR ONE (16:40)
[2017-12-18] MEDS ORDERED: MAGNESIUM CITRATE 296 ML BOTTLE PO ONE (16:40)
[2017-12-18] MEDS ORDERED: GLYCERIN (PEDIATRIC) SUPP.RECT PR PRN (16:40)
[2017-12-18] MEDS ORDERED: IPRATROPIUM/ALBUTEROL 0.5-2.5 MG/3 ML AMPUL NEB PRN (16:49)
--- NOTE | 2017-12-18 16:52 | PDOC PROGRESS REPORT ---
Subjective Progress Note for:: 12/18/17 Subjective:: Patient reports that he has not had a bowel movement. Patient states his appetite is poor due to feeling distended. Reason For Visit: PNEUMONIA, RENAL FAILURE, RHABDO Physical Exam Vital Signs: Temp Pulse Resp BP Pulse Ox 98.2 F 90 18 138/93 H 94 12/18/17 15:24 12/18/17 16:22 12/18/17 16:22 12/18/17 15:24 12/18/17 16:22 Pulse Oximeter Continuous Start: 12/15/17 06: 09 Freq: RTQ4 Status: Active Document 12/18/17 16:22 [facility] (Rec: 12/18/17 16:25 [facility] [email or web address]) Pulse Oximetry Assessment Oxygen Saturation (92-100) 94 Oxygen Flow Rate (L/min) 2 Oxygen Delivery Method Nasal Cannula Fraction of Inspired Oxygen (FIO2) 28 Equipment Usage Equipment in Use Continuous SpO2 Machine # 3 Intake & Output 12/17/17 12/18/17 12/19/17 06:59 06:59 06:59 Intake Total 4046 4274 Output Total 1730 3210 Balance 2316 1064 Weight 81 kg 81.5 kg General appearance: PRESENT: no acute distress, well-developed, well-nourished Head exam: PRESENT: atraumatic, normocephalic Eye exam: PRESENT: conjunctiva pink, EOMI. ABSENT: scleral icterus Ear exam: PRESENT: normal external ear exam Mouth exam: PRESENT: moist, tongue midline Neck exam: ABSENT: carotid bruit, JVD, lymphadenopathy, thyromegaly Respiratory exam: PRESENT: rhonchi, other - Good breath sounds heard in all lungs with some rhonchi but greatly improved Cardiovascular exam: PRESENT: RRR. ABSENT: diastolic murmur, rubs, systolic murmur Pulses: PRESENT: normal dorsalis pedis pul Vascular exam: PRESENT: normal capillary refill GI/Abdominal exam: PRESENT: normal bowel sounds, soft. ABSENT: distended, guarding, mass, organolmegaly, rebound, tenderness Rectal exam: PRESENT: deferred Extremities exam: PRESENT: full ROM. ABSENT: calf tenderness, clubbing, pedal edema Musculoskeletal exam: PRESENT: full ROM Neurological exam: PRESENT: alert, awake, oriented to person, oriented to place , oriented to time, oriented to situation, CN II-XII grossly intact. ABSENT: motor sensory deficit Psychiatric exam: PRESENT: appropriate affect, normal mood. ABSENT: homicidal ideation, suicidal ideation Skin exam: PRESENT: dry, intact, warm. ABSENT: cyanosis, rash Results Laboratory Results: 12/18/17 05:06 12/18/17 09:44 12/17/17 12/18/17 12/18/17 18:00 05:06 09:44 WBC 6.0 RBC 4.31 L Hgb 11.7 L Hct 35.0 L MCV 81 MCH 27.3 MCHC 33.5 RDW 14.9 H Plt Count 176 Seg Neutrophils % 65.1 Lymphocytes % 21.9 Monocytes % 12.5 Eosinophils % 0.2 Basophils % 0.3 Absolute Neutrophils 3.9 Absolute Lymphocytes 1.3 Absolute Monocytes 0.8 Absolute Eosinophils 0.0 Absolute Basophils 0.0 Sodium 134.1 L 134.4 L Potassium 3.1 L 3.6 Chloride 98 100 Carbon Dioxide 30 27 Anion Gap 6 7 BUN 17 15 Creatinine 0.92 0.87 Est GFR ( Amer) > 60 > 60 Est GFR (Non-Af Amer) > 60 > 60 Glucose 101 126 H Calcium 8.1 L 8.4 12/16/17 04:13 Sputum Gram Stain - Final 12/16/17 04:13 Sputum Sputum Culture - Final GREATLY REDUCED NORMAL LATASHA 12/15/17 12/15/17 12/16/17 10:00 18:30 04:19 Creatine Kinase 58354 H 97984 H 20902 H 12/16/17 12/16/17 12/17/17 10:18 18:20 05:24 Creatine Kinase 60493 H 42979 H 47188 H 12/17/17 12/17/17 12/18/17 10:25 18:00 05:06 Creatine Kinase 41318 H 9264 H 6658 H Impressions: Abdomen Ultrasound 12/15/17 00:23 IMPRESSION: 1. No gallstones. 2. Hepatic steatosis. Chest X-Ray 12/16/17 00:00 IMPRESSION: Patchy consolidation in the left lower lobe. Assessment & Plan - Diagnosis (1) Renal failure Qualifiers: Renal failure chronicity: unspecified chronicity Qualified Code(s): N19 - Unspecified kidney failure Is this a current diagnosis for this admission?: Yes Plan: Secondary to Dehydration and Rhabdo: Resolved. (2) Constipation Is this a current diagnosis for this admission?: Yes Plan: Will write for magnesium citrate and glycerin suppository. (3) Elevated troponin Is this a current diagnosis for this admission?: Yes Plan: in setting for Renal failure and fall: No chest pain. Troponins trended downward. No additional work up. 2 D Echo within normal. (4) EtOH dependence Is this a current diagnosis for this admission?: Yes Plan: Pt placed on Klonopin, MVI, Folic acid, and thiamine. (5) COPD exacerbation Is this a current diagnosis for this admission?: Yes Plan: We will change to as needed (6) Pneumonia Qualifiers: Pneumonia type: due to unspecified organism Laterality: left Lung location: lower lobe of lung Qualified Code(s): J18.1 - Lobar pneumonia, unspecified organism Is this a current diagnosis for this admission?: Yes Plan: Rocephin and Azithromycin. (7) Hyponatremia Is this a current diagnosis for this admission?: Yes Plan: Resolving. Will continue IVFs. (8) Rhabdomyolysis Qualifiers: Rhabdomyolysis type: non-traumatic Qualified Code(s): M62.82 - Rhabdomyolysis Is this a current diagnosis for this admission?: Yes Plan: Will continue to check CPK. (9) DVT prophylaxis Is this a current diagnosis for this admission?: Yes Plan: Heparin - Time Time Spent with patient: 15-24 minutes
[2017-12-18 18:10] LABS: ANION GAP 6 (5-19); BLOOD UREA NITROGEN 14 mg/dL (7-20); CALCIUM 8.2 mg/dL (8.4-10.2); CARBON DIOXIDE 30 mmol/L (22-30); CHLORIDE 99 mmol/L (98-107); GLUCOSE 112 mg/dL (75-110); POTASSIUM 3.5 mmol/L (3.6-5.0); SODIUM 135.2 mmol/L (137-145)
[2017-12-18] MEDS ORDERED: GLYCERIN (ADULT) SUPP.RECT PR ONE (19:04)
[2017-12-18] MEDS: CEFTRIAXONE SODIUM 1,000 MG in NORMAL SALINE 50 ML IV SCH (21:53)
[2017-12-18] MEDS: AZITHROMYCIN 500 MG in DEXTROSE 5%-WATER 250 ML IV SCH (22:39)
[2017-12-19] MEDS: HEPARIN SOD (PORCINE) 5,000 UNIT/ML 1 ML SYRINGE SUBCUT SCH ×3 (05:40→22:03)
[2017-12-19 06:48] LABS: HEMATOCRIT 35.6 % (37.9-51.0); HEMOGLOBIN 11.8 g/dL (13.5-17.0); MEAN CORPUSCULAR HEMOGLOBIN 27.2 pg (27.0-33.4); MEAN CORPUSCULAR HGB CONC 33.2 g/dL (32.0-36.0); MEAN CORPUSCULAR VOLUME 82 fl (80-97); PLATELET COUNT 208 10^3/uL (150-450); RED BLOOD COUNT 4.35 10^6/uL (4.35-5.55); WHITE BLOOD COUNT 6.2 10^3/uL (4.0-10.5)
[2017-12-19] MEDS ORDERED: GLYCERIN (ADULT) SUPP.RECT PR PRN (07:17)
[2017-12-19 07:34] LABS: ABSOLUTE LYMPHOCYTES# (MANUAL) 1.9 10^3/uL (0.5-4.7); ABSOLUTE MONOCYTES # (MANUAL) 0.4 10^3/uL (0.1-1.4); ABSOLUTE NEUTROPHILS# (MANUAL) 3.7 10^3/uL (1.7-8.2); BASOPHILS % (MANUAL) 0 % (0-2); EOSINOPHILS % (MANUAL) 2 % (0-6); LYMPHOCYTES % (MANUAL) 31 % (13-45); MONOCYTES % (MANUAL) 7 % (3-13); SEGMENTED NEUTROPHILS % (MAN) 60 % (42-78); TOTAL CELLS COUNTED 100
[2017-12-19 07:35] LABS: ANISOCYTOSIS SLIGHT; PLATELET COMMENT ADEQUATE
[2017-12-19] MEDS: THIAMINE HCL 100 MG TABLET PO SCH (10:22)
[2017-12-19] MEDS: FOLIC ACID 1 MG TABLET PO SCH (10:23)
[2017-12-19] MEDS: MULTIVITAMIN TABLET PO SCH (10:23)
[2017-12-19] MEDS: FAMOTIDINE 20 MG TABLET PO SCH ×2 (10:23→22:03)
[2017-12-19] MEDS: DOCUSATE SODIUM 100 MG CAPSULE PO SCH (10:23)
[2017-12-19] MEDS: DEXTROSE 5%-1/2 NORMAL SALINE 1,000 ML IV PRN (10:25)
[2017-12-19] MEDS: IPRATROPIUM/ALBUTEROL 0.5-2.5 MG/3 ML AMPUL NEB PRN (11:57)
--- NOTE | 2017-12-19 15:31 | PDOC PROGRESS REPORT ---
Subjective Progress Note for:: 12/19/17 Subjective:: Pt states that he did have a bowel movement yesterday. Nursing states that pt has not been moving around much. PT/OT will work with pt. Nursing states that pt is not eating very much. Reason For Visit: PNEUMONIA, RENAL FAILURE, RHABDO Physical Exam Vital Signs: Temp Pulse Resp BP Pulse Ox 100.0 F 91 16 107/70 94 12/19/17 11:00 12/19/17 11:57 12/19/17 11:57 12/19/17 11:00 12/19/17 11:57 Pulse Oximeter Continuous Start: 12/15/17 06: 09 Freq: RTQ4 Status: Active Document 12/19/17 11:57 [facility] [place]Rec: 12/19/17 13:38 [facility] [email or web address][place] Pulse Oximetry Assessment Oxygen Saturation (92-100) 94 Oxygen Flow Rate (L/min) 2 Oxygen Delivery Method Nasal Cannula Fraction of Inspired Oxygen (FIO2) 28 Equipment Usage Equipment in Use Continuous SpO2 Machine # 3 Additional RT Notes Other with [employer] student Alicia Strauss Intake & Output 12/18/17 12/19/17 12/20/17 06:59 06:59 06:59 Intake Total 4274 3209 Output Total 3210 1600 Balance 1064 1609 Weight 81.5 kg 80.1 kg General appearance: PRESENT: no acute distress, well-developed, well-nourished Head exam: PRESENT: atraumatic, normocephalic Eye exam: PRESENT: conjunctiva pink, EOMI. ABSENT: scleral icterus Ear exam: PRESENT: normal external ear exam Mouth exam: PRESENT: moist, tongue midline Neck exam: ABSENT: carotid bruit, JVD, lymphadenopathy, thyromegaly Respiratory exam: PRESENT: clear to auscultation sanjana. ABSENT: rales, rhonchi, wheezes Cardiovascular exam: PRESENT: RRR. ABSENT: diastolic murmur, rubs, systolic murmur Pulses: PRESENT: normal dorsalis pedis pul Vascular exam: PRESENT: normal capillary refill GI/Abdominal exam: PRESENT: normal bowel sounds, soft. ABSENT: distended, guarding, mass, organolmegaly, rebound, tenderness Rectal exam: PRESENT: deferred Extremities exam: PRESENT: full ROM. ABSENT: calf tenderness, clubbing, pedal edema Neurological exam: PRESENT: alert, awake, oriented to person, oriented to place , oriented to time, oriented to situation, CN II-XII grossly intact. ABSENT: motor sensory deficit Psychiatric exam: PRESENT: appropriate affect, normal mood. ABSENT: homicidal ideation, suicidal ideation Skin exam: PRESENT: dry, intact, warm. ABSENT: cyanosis, rash Results Laboratory Results: 12/19/17 05:23 12/18/17 17:45 12/18/17 12/19/17 17:45 05:23 WBC 6.2 RBC 4.35 Hgb 11.8 L Hct 35.6 L MCV 82 MCH 27.2 MCHC 33.2 RDW 15.0 H Plt Count 208 Seg Neutrophils % Not Reportable Lymphocytes % Not Reportable Monocytes % Not Reportable Eosinophils % Not Reportable Basophils % Not Reportable Absolute Neutrophils Not Reportable Absolute Lymphocytes Not Reportable Absolute Monocytes Not Reportable Absolute Eosinophils Not Reportable Absolute Basophils Not Reportable Sodium 135.2 L Potassium 3.5 L Chloride 99 Carbon Dioxide 30 Anion Gap 6 BUN 14 Creatinine 0.85 Est GFR ( Amer) > 60 Est GFR (Non-Af Amer) > 60 Glucose 112 H Calcium 8.2 L 12/16/17 04:13 Sputum Gram Stain - Final 12/16/17 04:13 Sputum Sputum Culture - Final GREATLY REDUCED NORMAL LATASHA 12/15/17 12/15/17 12/16/17 10:00 18:30 04:19 Creatine Kinase 31638 H 33134 H 09403 H 12/16/17 12/16/17 12/17/17 10:18 18:20 05:24 Creatine Kinase 07955 H 03560 H 87745 H 12/17/17 12/17/17 12/18/17 10:25 18:00 05:06 Creatine Kinase 95036 H 9264 H 6658 H 12/19/17 05:23 Creatine Kinase 2212 H Impressions: Abdomen Ultrasound 12/15/17 00:23 IMPRESSION: 1. No gallstones. 2. Hepatic steatosis. Chest X-Ray 12/16/17 00:00 IMPRESSION: Patchy consolidation in the left lower lobe. Assessment & Plan - Diagnosis (1) Renal failure Qualifiers: Renal failure chronicity: unspecified chronicity Qualified Code(s): N19 - Unspecified kidney failure Is this a current diagnosis for this admission?: Yes Plan: in setting of Dehydration and Rhabdo: Pt creatinine 3.2 now 0.85. Pt is doing well. (2) Constipation Is this a current diagnosis for this admission?: Yes Plan: Resolved. (3) Elevated troponin Is this a current diagnosis for this admission?: Yes Plan: in setting for Renal failure and fall: No chest pain. Troponins trended downward. No additional work up. 2 D Echo within normal. (4) EtOH dependence Is this a current diagnosis for this admission?: Yes Plan: Pt place on Klonopin, MVI, Folic acid, and thiamine. (5) COPD exacerbation Is this a current diagnosis for this admission?: Yes Plan: We will change to as needed (6) Pneumonia Qualifiers: Pneumonia type: due to unspecified organism Laterality: left Lung location: lower lobe of lung Qualified Code(s): J18.1 - Lobar pneumonia, unspecified organism Is this a current diagnosis for this admission?: Yes Plan: Rocephin and Azithromycin. (7) Hyponatremia Is this a current diagnosis for this admission?: Yes Plan: Resolving. Will continue IVFs. (8) Rhabdomyolysis Qualifiers: Rhabdomyolysis type: non-traumatic Qualified Code(s): M62.82 - Rhabdomyolysis Is this a current diagnosis for this admission?: Yes Plan: [place] continue [place] [address] now 2212. (9) Hypokalemia Is this a current diagnosis for this admission?: Yes Plan: Potassium chloride 40 mEq PO X 1. (10) Debility Is this a current diagnosis for this admission?: Yes Plan: PT/OT evaluation. (11) DVT prophylaxis Is this a current diagnosis for this admission?: Yes Plan: Heparin - Time Time Spent with patient: 15-24 minutes
[2017-12-19] MEDS ORDERED: POTASSIUM CHLORIDE 10 MEQ TABLET.SA PO ONE (15:45)
[2017-12-19] MEDS: CEFTRIAXONE SODIUM 1,000 MG in NORMAL SALINE 50 ML IV SCH (22:03)
[2017-12-19] MEDS: AZITHROMYCIN 500 MG in DEXTROSE 5%-WATER 250 ML IV SCH (22:03)
[2017-12-20] MEDS: DEXTROSE 5%-1/2 NORMAL SALINE 1,000 ML IV PRN (03:57)
[2017-12-20 05:46] LABS: HEMOGLOBIN 11.5 g/dL (13.5-17.0); MEAN CORPUSCULAR HEMOGLOBIN 27.3 pg (27.0-33.4); MEAN CORPUSCULAR HGB CONC 33.9 g/dL (32.0-36.0); MEAN CORPUSCULAR VOLUME 81 fl (80-97); PLATELET COUNT 256 10^3/uL (150-450); RED BLOOD COUNT 4.22 10^6/uL (4.35-5.55); RED CELL DISTRIBUTION WIDTH 15.1 % (11.5-14.0); WHITE BLOOD COUNT 5.6 10^3/uL (4.0-10.5)
[2017-12-20] MEDS: HEPARIN SOD (PORCINE) 5,000 UNIT/ML 1 ML SYRINGE SUBCUT SCH ×3 (05:50→23:02)
[2017-12-20 06:10] LABS: ANION GAP 8 (5-19); BLOOD UREA NITROGEN 13 mg/dL (7-20); CALCIUM 8.2 mg/dL (8.4-10.2); CARBON DIOXIDE 25 mmol/L (22-30); CHLORIDE 103 mmol/L (98-107); CREATINE KINASE 722 U/L (55-170); GLUCOSE 115 mg/dL (75-110); POTASSIUM 3.9 mmol/L (3.6-5.0); SODIUM 136.2 mmol/L (137-145)
[2017-12-20 06:36] LABS: ABSOLUTE LYMPHOCYTES# (MANUAL) 1.3 10^3/uL (0.5-4.7); ABSOLUTE MONOCYTES # (MANUAL) 0.7 10^3/uL (0.1-1.4); ABSOLUTE NEUTROPHILS# (MANUAL) 3.3 10^3/uL (1.7-8.2); BASOPHILS % (MANUAL) 0 % (0-2); EOSINOPHILS % (MANUAL) 5 % (0-6); LYMPHOCYTES % (MANUAL) 24 % (13-45); MONOCYTES % (MANUAL) 12 % (3-13); SEGMENTED NEUTROPHILS % (MAN) 59 % (42-78); TOTAL CELLS COUNTED 100
[2017-12-20 06:37] LABS: ANISOCYTOSIS SLIGHT; PLATELET COMMENT ADEQUATE
[2017-12-20] MEDS: IPRATROPIUM/ALBUTEROL 0.5-2.5 MG/3 ML AMPUL NEB PRN (09:16)
[2017-12-20] MEDS: FAMOTIDINE 20 MG TABLET PO SCH ×2 (09:45→23:03)
[2017-12-20] MEDS: THIAMINE HCL 100 MG TABLET PO SCH (09:45)
[2017-12-20] MEDS: MULTIVITAMIN TABLET PO SCH (09:45)
[2017-12-20] MEDS: DOCUSATE SODIUM 100 MG CAPSULE PO SCH (09:45)
[2017-12-20] MEDS: FOLIC ACID 1 MG TABLET PO SCH (09:45)
--- NOTE | 2017-12-20 12:21 | PDOC PROGRESS REPORT ---
Subjective Progress Note for:: 12/20/17 Subjective:: Patient is a 72-year-old male with a past medical history of EtOH dependence who was admitted for renal failure, rhabdomyolysis, and left lower lobe pneumonia. He is currently on azithromycin and ceftriaxone. His kidney function has returned to normal. Had and kidneys is trending downward. Seen on morning rounds. He is found resting in bed comfortably on supplemental oxygen at 2 Lpm via nasal cannula. The patient is not home O2 dependent. He states that his breathing has improved, he does continue to have a productive cough. His primary complaint at this time is generalized weakness and early fatigue with activity. He has no other questions or concerns at this time. Reason For Visit: PNEUMONIA, RENAL FAILURE, RHABDO Physical Exam Vital Signs: Temp Pulse Resp BP Pulse Ox 98.2 F 97 18 115/88 H 94 12/20/17 11:34 12/20/17 11:34 12/20/17 11:34 12/20/17 11:34 12/20/17 11:34 Pulse Oximeter Continuous Start: 12/15/17 06: 09 Freq: RTQ4 Status: Active Document 12/20/17 09:14 [facility] (Rec: 12/20/17 09:27 [facility] [email or web address]) Pulse Oximetry Assessment Oxygen Saturation (92-100) 92 Oxygen Flow Rate (L/min) 2 Oxygen Delivery Method Nasal Cannula Fraction of Inspired Oxygen (FIO2) 28 Equipment Usage Equipment in Use Continuous SpO2 Machine # 3 Intake & Output 12/19/17 12/20/17 12/21/17 06:59 06:59 06:59 Intake Total 3209 5190 Output Total 1600 2720 Balance 1609 2470 Weight 80.1 kg 80.3 kg General appearance: PRESENT: no acute distress, well-developed, well-nourished, other - Overweight Head exam: PRESENT: atraumatic, normocephalic Eye exam: PRESENT: conjunctiva pink, EOMI, PERRLA. ABSENT: scleral icterus Ear exam: PRESENT: normal external ear exam Mouth exam: PRESENT: moist, tongue midline Neck exam: ABSENT: carotid bruit, JVD, lymphadenopathy, thyromegaly Respiratory exam: PRESENT: decreased breath sounds - Bibasilar, rhonchi - Left middle and lower ledesma, symmetrical, unlabored. ABSENT: rales, tachypnea, wheezes Cardiovascular exam: PRESENT: RRR, +S1, +S2. ABSENT: diastolic murmur, rubs, systolic murmur Pulses: PRESENT: normal dorsalis pedis pul Vascular exam: PRESENT: normal capillary refill GI/Abdominal exam: PRESENT: normal bowel sounds, soft. ABSENT: distended, guarding, mass, organolmegaly, rebound, tenderness Rectal exam: PRESENT: deferred Extremities exam: PRESENT: full ROM. ABSENT: calf tenderness, clubbing, pedal edema Neurological exam: PRESENT: alert, awake, oriented to person, oriented to place , oriented to time, oriented to situation, CN II-XII grossly intact. ABSENT: motor sensory deficit Psychiatric exam: PRESENT: appropriate affect, normal mood. ABSENT: homicidal ideation, suicidal ideation Skin exam: PRESENT: dry, intact, warm. ABSENT: cyanosis, rash Results Laboratory Results: 12/20/17 05:03 12/20/17 05:03 12/20/17 12/20/17 05:03 05:03 WBC 5.6 RBC 4.22 L Hgb 11.5 L Hct 34.0 L MCV 81 MCH 27.3 MCHC 33.9 RDW 15.1 H Plt Count 256 Seg Neutrophils % Not Reportable Lymphocytes % Not Reportable Monocytes % Not Reportable Eosinophils % Not Reportable Basophils % Not Reportable Absolute Neutrophils Not Reportable Absolute Lymphocytes Not Reportable Absolute Monocytes Not Reportable Absolute Eosinophils Not Reportable Absolute Basophils Not Reportable Sodium 136.2 L Potassium 3.9 Chloride 103 Carbon Dioxide 25 Anion Gap 8 BUN 13 Creatinine 0.85 Est GFR ( Amer) > 60 Est GFR (Non-Af Amer) > 60 Glucose 115 H Calcium 8.2 L 12/15/17 12/15/17 12/16/17 10:00 18:30 04:19 Creatine Kinase 07842 H 46630 H 36455 H 12/16/17 12/16/17 12/17/17 10:18 18:20 05:24 Creatine Kinase 80834 H 84975 H 01172 H 12/17/17 12/17/17 12/18/17 10:25 18:00 05:06 Creatine Kinase 22348 H 9264 H 6658 H 12/19/17 12/20/17 05:23 05:03 Creatine Kinase 2212 H 722 H Impressions: Abdomen Ultrasound 12/15/17 00:23 IMPRESSION: 1. No gallstones. 2. Hepatic steatosis. Chest X-Ray 12/16/17 00:00 IMPRESSION: Patchy consolidation in the left lower lobe. Assessment & Plan - Diagnosis (1) Renal failure Qualifiers: Renal failure chronicity: unspecified chronicity Qualified Code(s): N19 - Unspecified kidney failure Is this a current diagnosis for this admission?: Yes Plan: Secondary to rhabdomyolysis and dehydration in the setting of pneumonia. Creatinine on admission was 3.11 and is now stable at 0.85. The patient continues to receive IV fluids. Will avoid nephrotoxic medications. (2) Rhabdomyolysis Qualifiers: Rhabdomyolysis type: non-traumatic Qualified Code(s): M62.82 - Rhabdomyolysis Is this a current diagnosis for this admission?: Yes Plan: After a fall from bed with unknown downtime in the setting of pneumonia. CK on admission was 50,000 and has trended down to 722. Will continue to provide IV fluids and encourage p.o. intake. Will encourage mobility today. PT/OT have been consulted. (3) Pneumonia Qualifiers: Pneumonia type: due to unspecified organism Laterality: left Lung location: lower lobe of lung Qualified Code(s): J18.1 - Lobar pneumonia, unspecified organism Is this a current diagnosis for this admission?: Yes Plan: He patient was empirically placed on azithromycin and Rocephin. He is currently on day 5 of antibiotic therapy. Patient did have a low-grade temperature of 100.0 within the last 24 hours. We will continue antibiotics until afebrile 48 hours. Blood cultures had no growth at 5 days. Sputum culture showed normal respiratory lisa. He remains oxygen dependent at 2 L/min. We will continue nebulized treatments as needed. We will encourage mobility and use of incentive spirometry. (4) Debility Is this a current diagnosis for this admission?: Yes Plan: Will ask PT/OT to evaluate and treat the patient per protocols. The patient will benefit from SNF for short-term rehab vs home health pt/ot services once stable for discharge. (5) Elevated troponin Is this a current diagnosis for this admission?: Yes Plan: The setting of renal failure and fall; no chest pain. Troponins trended downward. Echocardiogram was within normal limits. No additional workup required. (6) EtOH dependence Is this a current diagnosis for this admission?: Yes Plan: The patient has been placed on Klonopin, multivitamin, folic acid, and thiamine. No evidence of active withdrawal at this time. (7) Hypokalemia Is this a current diagnosis for this admission?: Yes Plan: Resolved; will continue to monitor and replace as necessary. (8) Hyponatremia Is this a current diagnosis for this admission?: Yes Plan: Thank; secondary to dehydration. He is on IV fluids. (9) Constipation Is this a current diagnosis for this admission?: Yes Plan: Resolved. (10) Leukocytosis Qualifiers: Leukocytosis type: bandemia Qualified Code(s): D72.825 - Bandemia Is this a current diagnosis for this admission?: Yes Plan: Resolved; secondary to pneumonia. (11) Anemia Is this a current diagnosis for this admission?: Yes Plan: Likely secondary to hemodilution. We will continue to monitor. (12) DVT prophylaxis Is this a current diagnosis for this admission?: Yes Plan: Heparin - Time Time Spent with patient: 35 or more minutes Medications reviewed and adjusted accordingly: Yes
[2017-12-20] MEDS: CEFTRIAXONE SODIUM 1,000 MG in NORMAL SALINE 50 ML IV SCH (23:03)
[2017-12-20] MEDS: AZITHROMYCIN 500 MG in DEXTROSE 5%-WATER 250 ML IV SCH (23:03)
[2017-12-21] MEDS: HEPARIN SOD (PORCINE) 5,000 UNIT/ML 1 ML SYRINGE SUBCUT SCH ×3 (06:00→21:35)
[2017-12-21 06:38] LABS: HEMATOCRIT 35.3 % (37.9-51.0); HEMOGLOBIN 11.8 g/dL (13.5-17.0); MEAN CORPUSCULAR HGB CONC 33.4 g/dL (32.0-36.0); MEAN CORPUSCULAR VOLUME 81 fl (80-97); PLATELET COUNT 348 10^3/uL (150-450); RED BLOOD COUNT 4.37 10^6/uL (4.35-5.55); RED CELL DISTRIBUTION WIDTH 14.9 % (11.5-14.0); WHITE BLOOD COUNT 5.5 10^3/uL (4.0-10.5)
[2017-12-21 06:50] LABS: ANION GAP 8 (5-19); BLOOD UREA NITROGEN 12 mg/dL (7-20); CALCIUM 8.5 mg/dL (8.4-10.2); CARBON DIOXIDE 26 mmol/L (22-30); CHLORIDE 103 mmol/L (98-107); GLUCOSE 100 mg/dL (75-110); SODIUM 136.5 mmol/L (137-145)
[2017-12-21] MEDS ORDERED: LEVALBUTEROL HCL NEB 1.25 MG/3 ML AMPUL NEB PRN (09:44)
[2017-12-21] MEDS: FAMOTIDINE 20 MG TABLET PO SCH ×2 (10:29→21:35)
[2017-12-21] MEDS: FOLIC ACID 1 MG TABLET PO SCH (10:29)
[2017-12-21] MEDS: MULTIVITAMIN TABLET PO SCH (10:29)
[2017-12-21] MEDS: DOCUSATE SODIUM 100 MG CAPSULE PO SCH (10:29)
[2017-12-21] MEDS: GUAIFENESIN 600 MG TABLET.SA PO SCH ×2 (10:30→21:35)
[2017-12-21] MEDS: THIAMINE HCL 100 MG TABLET PO SCH (10:30)
--- NOTE | 2017-12-21 12:39 | RADIOLOGY REPORT (SQ) ---
EXAM DESCRIPTION: CHEST PA/LAT COMPLETED DATE/TIME: 12/21/2017 12:17 pm REASON FOR STUDY: PNA; worsening dyspnea COMPARISON: 12/14/2017. TECHNIQUE: Frontal and lateral radiographic views of the chest acquired. NUMBER OF VIEWS: Two view. LIMITATIONS: None. FINDINGS: LUNGS AND PLEURA: Opacities in the lung bases look relatively unchanged. Patchy airspace disease he is present in the left lower lobe. Mild blunting of the costophrenic angles may largely r eflect scar. Small nodular densities likely represent nipple shadows, not seen previously. MEDIASTINUM AND HILAR STRUCTURES: Stable. HEART AND VASCULAR STRUCTURES: Heart normal size. No evidence for failure. BONES: No acute findings. HARDWARE: None in the chest. OTHER: No other significant finding. IMPRESSION: Relatively stable appearance of the chest. This includes basilar airspace disease on th e left. Probable underlying COPD and chronic changes otherwise. TECHNICAL DOCUMENTATION: JOB ID: [id number] [employer]- All Rights Reserved
--- NOTE | 2017-12-21 13:53 | PDOC PROGRESS REPORT ---
Subjective Progress Note for:: 12/21/17 Subjective:: Patient is a 72-year-old male with a past medical history of EtOH dependence who was admitted for renal failure, rhabdomyolysis, and left lower lobe pneumonia. He is currently on azithromycin and ceftriaxone. His kidney function has returned to normal. Creatinine kinase is trending downward. Seen on morning rounds. He is found resting in bed comfortably on supplemental oxygen at 2 Lpm via nasal cannula. The patient is not home O2 dependent. He states that he feels worse today with increased dyspnea while at rest and increased sputum production. Nursing relates concerns of possible fluid overload as they heard bilateral crackles this morning. He has no other questions or concerns at this time. Reason For Visit: PNEUMONIA, RENAL FAILURE, RHABDO Physical Exam Vital Signs: Temp Pulse Resp BP Pulse Ox 98.1 F 82 20 122/78 94 12/21/17 12:00 12/21/17 12:00 12/21/17 12:00 12/21/17 12:00 12/21/17 12:00 Pulse Oximeter Continuous Start: 12/15/17 06: 09 Freq: RTQ4 Status: Active Document 12/21/17 08:00 [facility] (Rec: 12/21/17 11:00 [facility] [email or web address]) Pulse Oximetry Assessment Oxygen Saturation (92-100) 95 Oxygen Flow Rate (L/min) 2 Oxygen Delivery Method Nasal Cannula Equipment Usage Equipment in Use Continuous SpO2 Machine # 3 Intake & Output 12/20/17 12/21/17 12/22/17 06:59 06:59 06:59 Intake Total 5193 7885 Output Total 8593 1497 Balance 8695 6855 Weight 80.3 kg 78.6 kg General appearance: PRESENT: no acute distress, well-developed, well-nourished Head exam: PRESENT: atraumatic, normocephalic Eye exam: PRESENT: conjunctiva pink, EOMI, PERRLA. ABSENT: scleral icterus Ear exam: PRESENT: normal external ear exam Mouth exam: PRESENT: moist, tongue midline Neck exam: ABSENT: carotid bruit, JVD, lymphadenopathy, thyromegaly Respiratory exam: PRESENT: decreased breath sounds - Bibasilar; Rt>Lt, rhonchi, symmetrical, unlabored, other - Supplemental oxygen at 2 L/min. ABSENT: rales, wheezes Cardiovascular exam: PRESENT: RRR, +S1, +S2. ABSENT: diastolic murmur, rubs, systolic murmur Pulses: PRESENT: normal dorsalis pedis pul Vascular exam: PRESENT: normal capillary refill GI/Abdominal exam: PRESENT: normal bowel sounds, soft. ABSENT: distended, guarding, mass, organolmegaly, rebound, tenderness Rectal exam: PRESENT: deferred Extremities exam: PRESENT: full ROM. ABSENT: calf tenderness, clubbing, pedal edema Neurological exam: PRESENT: alert, awake, oriented to person, oriented to place , oriented to time, oriented to situation, CN II-XII grossly intact. ABSENT: motor sensory deficit Psychiatric exam: PRESENT: appropriate affect, normal mood. ABSENT: homicidal ideation, suicidal ideation Skin exam: PRESENT: dry, intact, warm. ABSENT: cyanosis, rash Results Laboratory Results: 12/21/17 05:35 12/21/17 05:35 12/21/17 12/21/17 05:35 05:35 WBC 5.5 RBC 4.37 Hgb 11.8 L Hct 35.3 L MCV 81 MCH 27.0 MCHC 33.4 RDW 14.9 H Plt Count 348 Sodium 136.5 L Potassium 4.0 Chloride 103 Carbon Dioxide 26 Anion Gap 8 BUN 12 Creatinine 0.83 Est GFR ( Amer) > 60 Est GFR (Non-Af Amer) > 60 Glucose 100 Calcium 8.5 12/15/17 12/15/17 12/16/17 10:00 18:30 04:19 Creatine Kinase 90614 H 84527 H 97866 H 12/16/17 12/16/17 12/17/17 10:18 18:20 05:24 Creatine Kinase 33560 H 69056 H 43226 H 12/17/17 12/17/17 12/18/17 10:25 18:00 05:06 Creatine Kinase 89621 H 9264 H 6658 H 12/19/17 12/20/17 05:23 05:03 Creatine Kinase 2212 H 722 H Impressions: Abdomen Ultrasound 12/15/17 00:23 IMPRESSION: 1. No gallstones. 2. Hepatic steatosis. Chest X-Ray 12/21/17 12:06 IMPRESSION: Relatively stable appearance of the chest. This includes basilar airspace disease on the left. Probable underlying COPD and chronic changes otherwise. Assessment & Plan - Diagnosis (1) Renal failure Qualifiers: Renal failure chronicity: unspecified chronicity Qualified Code(s): N19 - Unspecified kidney failure Is this a current diagnosis for this admission?: Yes Plan: Resolved; Secondary to rhabdomyolysis and dehydration in the setting of pneumonia. Creatinine on admission was 3.11 and is now stable at 0.83. The patient continues to receive IV fluids; will decrease rate today and encourage p.o. fluids. Will avoid nephrotoxic medications. (2) Rhabdomyolysis Qualifiers: Rhabdomyolysis type: non-traumatic Qualified Code(s): M62.82 - Rhabdomyolysis Is this a current diagnosis for this admission?: Yes Plan: After a fall from bed with unknown downtime in the setting of pneumonia. CK on admission was 50,000 and has trended down to 722. Will continue to provide IV fluids and encourage p.o. intake. Will encourage mobility today. Britton has been removed; pt to get out of bed three times daily. PT/OT have been consulted. (3) Pneumonia Qualifiers: Pneumonia type: due to unspecified organism Laterality: left Lung location: lower lobe of lung Qualified Code(s): J18.1 - Lobar pneumonia, unspecified organism Is this a current diagnosis for this admission?: Yes Plan: Patient complains of worsening dyspnea and increased sputum production today. On admission, the patient was empirically placed on azithromycin and Rocephin. He is currently on day 6 of antibiotic therapy. Afebrile 24 hours. We will continue antibiotics until afebrile 48 hours. Blood cultures had no growth at 5 days. Sputum culture showed normal respiratory lisa. Repeat chest x-ray today is essentially unchanged. He remains oxygen dependent at 2 L/min. We will schedule duo nebs and provide Xopenex as needed for shortness of breath. Addition of Mucinex twice daily today. We will encourage mobility and use of incentive spirometry. (4) Debility Is this a current diagnosis for this admission?: Yes Plan: Will ask PT/OT to evaluate and treat the patient per protocols. The patient will benefit from SNF for short-term rehab vs home health pt/ot services once stable for discharge. (5) Elevated troponin Is this a current diagnosis for this admission?: Yes Plan: The setting of renal failure and fall; no chest pain. Troponins trended downward. Echocardiogram was within normal limits. No additional workup required. (6) EtOH dependence Is this a current diagnosis for this admission?: Yes Plan: The patient has been placed on Klonopin, multivitamin, folic acid, and thiamine. No evidence of active withdrawal at this time. (7) Hypokalemia Is this a current diagnosis for this admission?: Yes Plan: Resolved; will continue to monitor and replace as necessary. (8) Hyponatremia Is this a current diagnosis for this admission?: Yes Plan: Stable; secondary to dehydration. He is on IV fluids. (9) Constipation Is this a current diagnosis for this admission?: Yes Plan: Resolved. (10) Leukocytosis Qualifiers: Leukocytosis type: bandemia Qualified Code(s): D72.825 - Bandemia Is this a current diagnosis for this admission?: Yes Plan: Resolved; secondary to pneumonia. (11) Anemia Is this a current diagnosis for this admission?: Yes Plan: Stable; Likely secondary to hemodilution. We will continue to monitor. (12) DVT prophylaxis Is this a current diagnosis for this admission?: Yes Plan: Heparin - Time Time Spent with patient: 25-34 minutes Medications reviewed and adjusted accordingly: Yes Anticipated discharge: Home with Homehealth - PT/OT
[2017-12-21] MEDS ORDERED: NORMAL SALINE 1000 ML 1,000 ML IV PRN (13:54)
[2017-12-21] MEDS: IPRATROPIUM/ALBUTEROL 0.5-2.5 MG/3 ML AMPUL NEB SCH (16:27)
[2017-12-21] MEDS: CEFTRIAXONE SODIUM 1,000 MG in NORMAL SALINE 50 ML IV SCH (21:35)
[2017-12-21] MEDS: AZITHROMYCIN 500 MG in DEXTROSE 5%-WATER 250 ML IV SCH (22:34)
[2017-12-22] MEDS: IPRATROPIUM/ALBUTEROL 0.5-2.5 MG/3 ML AMPUL NEB SCH ×3 (00:07→16:15)
[2017-12-22 06:34] LABS: HEMATOCRIT 33.5 % (37.9-51.0); HEMOGLOBIN 11.4 g/dL (13.5-17.0); MEAN CORPUSCULAR HEMOGLOBIN 27.5 pg (27.0-33.4); MEAN CORPUSCULAR HGB CONC 34.1 g/dL (32.0-36.0); MEAN CORPUSCULAR VOLUME 81 fl (80-97); PLATELET COUNT 204 10^3/uL (150-450); RED BLOOD COUNT 4.15 10^6/uL (4.35-5.55); RED CELL DISTRIBUTION WIDTH 14.7 % (11.5-14.0); WHITE BLOOD COUNT 5.7 10^3/uL (4.0-10.5)
[2017-12-22] MEDS: HEPARIN SOD (PORCINE) 5,000 UNIT/ML 1 ML SYRINGE SUBCUT SCH ×3 (06:34→21:49)
[2017-12-22 06:54] LABS: ANION GAP 5 (5-19); BLOOD UREA NITROGEN 14 mg/dL (7-20); CALCIUM 8.9 mg/dL (8.4-10.2); CARBON DIOXIDE 27 mmol/L (22-30); CHLORIDE 105 mmol/L (98-107); CREATINE KINASE 293 U/L (55-170); GLUCOSE 96 mg/dL (75-110); POTASSIUM 3.8 mmol/L (3.6-5.0)
[2017-12-22] MEDS: GUAIFENESIN 600 MG TABLET.SA PO SCH ×2 (09:29→21:48)
[2017-12-22] MEDS: MULTIVITAMIN TABLET PO SCH (09:29)
[2017-12-22] MEDS: THIAMINE HCL 100 MG TABLET PO SCH (09:29)
[2017-12-22] MEDS: DOCUSATE SODIUM 100 MG CAPSULE PO SCH (09:29)
[2017-12-22] MEDS: FOLIC ACID 1 MG TABLET PO SCH (09:29)
[2017-12-22] MEDS: FAMOTIDINE 20 MG TABLET PO SCH ×2 (09:29→21:48)
--- NOTE | 2017-12-22 12:34 | PDOC PROGRESS REPORT ---
Subjective Progress Note for:: 12/22/17 Subjective:: Patient is a 72-year-old male with a past medical history of EtOH dependence who was admitted for renal failure, rhabdomyolysis, and left lower lobe pneumonia. He is currently on azithromycin and ceftriaxone. His kidney function has returned to normal. Creatinine kinase is trending downward. Seen on morning rounds. He is found resting in bed comfortably on supplemental oxygen at 2 Lpm via nasal cannula. The patient is not home O2 dependent. The patient states that he "took a turn for the better today". He states that his cough is less frequent and that his dyspnea is improving. He does tell me that he has no interest in [facility] for short-term rehab and is hopeful to be discharged directly to home with home PT OT services if required. He is encouraged to increase mobility today. He has no other questions or concerns at this time. Reason For Visit: PNEUMONIA, RENAL FAILURE, RHABDO Physical Exam Vital Signs: Temp Pulse Resp BP Pulse Ox 98.6 F 97 18 133/79 H 98 12/22/17 12:00 12/22/17 12:00 12/22/17 12:00 12/22/17 12:00 12/22/17 12:00 Pulse Oximeter Continuous Start: 12/15/17 06: 09 Freq: RTQ4 Status: Active Document 12/22/17 04:00 [facility] (Rec: 12/22/17 04:22 [facility] [email or web address]) Pulse Oximetry Assessment Oxygen Saturation (92-100) 96 Oxygen Flow Rate (L/min) 2 Oxygen Delivery Method Nasal Cannula Equipment Usage Equipment in Use Continuous SpO2 Machine # 3 Intake & Output 12/21/17 12/22/17 12/23/17 06:59 06:59 06:59 Intake Total 7824 1763 Output Total 0259 550 Balance 5749 1213 Weight 78.6 kg 78.4 kg General appearance: PRESENT: no acute distress, well-developed, well-nourished, other - Overweight Head exam: PRESENT: atraumatic, normocephalic Eye exam: PRESENT: conjunctiva pink, EOMI, PERRLA. ABSENT: scleral icterus Ear exam: PRESENT: normal external ear exam Mouth exam: PRESENT: moist, tongue midline Neck exam: ABSENT: carotid bruit, JVD, lymphadenopathy, thyromegaly Respiratory exam: PRESENT: decreased breath sounds - Bibasilar, rhonchi - Improved from yesterday, symmetrical, unlabored, other - Supplemental oxygen via nasal cannula. ABSENT: rales, wheezes Cardiovascular exam: PRESENT: RRR, +S1, +S2. ABSENT: diastolic murmur, rubs, systolic murmur Pulses: PRESENT: normal dorsalis pedis pul Vascular exam: PRESENT: normal capillary refill GI/Abdominal exam: PRESENT: normal bowel sounds, soft. ABSENT: distended, guarding, mass, organolmegaly, rebound, tenderness Rectal exam: PRESENT: deferred Extremities exam: PRESENT: full ROM. ABSENT: calf tenderness, clubbing, pedal edema Neurological exam: PRESENT: alert, awake, oriented to person, oriented to place , oriented to time, oriented to situation, CN II-XII grossly intact. ABSENT: motor sensory deficit Psychiatric exam: PRESENT: appropriate affect, normal mood. ABSENT: homicidal ideation, suicidal ideation Skin exam: PRESENT: dry, intact, warm. ABSENT: cyanosis, rash Results Laboratory Results: 12/22/17 06:07 12/22/17 06:07 12/22/17 12/22/17 06:07 06:07 WBC 5.7 RBC 4.15 L Hgb 11.4 L Hct 33.5 L MCV 81 MCH 27.5 MCHC 34.1 RDW 14.7 H Plt Count 204 Sodium 137.0 Potassium 3.8 Chloride 105 Carbon Dioxide 27 Anion Gap 5 BUN 14 Creatinine 0.86 Est GFR ( Amer) > 60 Est GFR (Non-Af Amer) > 60 Glucose 96 Calcium 8.9 12/15/17 12/15/17 12/16/17 10:00 18:30 04:19 Creatine Kinase 57557 H 71789 H 16606 H 12/16/17 12/16/17 12/17/17 10:18 18:20 05:24 Creatine Kinase 79204 H 09380 H 00124 H 12/17/17 12/17/17 12/18/17 10:25 18:00 05:06 Creatine Kinase 03611 H 9264 H 6658 H 12/19/17 12/20/17 12/22/17 05:23 05:03 06:07 Creatine Kinase 2212 H 722 H 293 H Impressions: Abdomen Ultrasound 12/15/17 00:23 IMPRESSION: 1. No gallstones. 2. Hepatic steatosis. Chest X-Ray 12/21/17 12:06 IMPRESSION: Relatively stable appearance of the chest. This includes basilar airspace disease on the left. Probable underlying COPD and chronic changes otherwise. Assessment & Plan - Diagnosis (1) Renal failure Qualifiers: Renal failure chronicity: unspecified chronicity Qualified Code(s): N19 - Unspecified kidney failure Is this a current diagnosis for this admission?: Yes Plan: Resolved; Secondary to rhabdomyolysis and dehydration in the setting of pneumonia. Creatinine on admission was 3.11 and is now stable at 0.83. Continues on gentle IV fluid hydration. Encourage p.o. fluids. Will avoid nephrotoxic medications. (2) Rhabdomyolysis Qualifiers: Rhabdomyolysis type: non-traumatic Qualified Code(s): M62.82 - Rhabdomyolysis Is this a current diagnosis for this admission?: Yes Plan: Improving; after a fall from bed with unknown downtime in the setting of pneumonia. CK on admission was 50,000 and has trended down to 293. Will continue to provide IV fluids and encourage p.o. intake. Will encourage mobility today. Britton has been removed; pt to get out of bed three times daily. PT/OT have been consulted. (3) Pneumonia Qualifiers: Pneumonia type: due to unspecified organism Laterality: left Lung location: lower lobe of lung Qualified Code(s): J18.1 - Lobar pneumonia, unspecified organism Is this a current diagnosis for this admission?: Yes Plan: Patient complains of worsening dyspnea and increased sputum production today. On admission, the patient was empirically placed on azithromycin and Rocephin. He is currently on day 6 of antibiotic therapy. Afebrile 24 hours. Blood cultures had no growth at 5 days. Sputum culture showed normal respiratory lisa. Repeat chest x-ray yesterday is essentially unchanged. We will continue antibiotics until afebrile 48 hours; anticipate that antibiotics may be discontinued tomorrow. He is currently on day 8 of azithromycin and ceftriaxone. He remains oxygen dependent at 2 L/min. We will schedule duo nebs and provide Xopenex as needed for shortness of breath. Continue Mucinex twice daily. We will encourage mobility and use of incentive spirometry. (4) Debility Is this a current diagnosis for this admission?: Yes Plan: Will ask PT/OT to evaluate and treat the patient per protocols. The patient will benefit from SNF for short-term rehab vs home health pt/ot services once stable for discharge. (5) Elevated troponin Is this a current diagnosis for this admission?: Yes Plan: The setting of renal failure and fall; no chest pain. Troponins trended downward. Echocardiogram was within normal limits. No additional workup required. (6) EtOH dependence Is this a current diagnosis for this admission?: Yes Plan: The patient has been placed on Klonopin, multivitamin, folic acid, and thiamine. No evidence of active withdrawal at this time. (7) Hypokalemia Is this a current diagnosis for this admission?: Yes Plan: Resolved; will continue to monitor and replace as necessary. (8) Hyponatremia Is this a current diagnosis for this admission?: Yes Plan: Resolved; secondary to dehydration. He is on IV fluids. (9) Constipation Is this a current diagnosis for this admission?: Yes Plan: Resolved. (10) Leukocytosis Qualifiers: Leukocytosis type: bandemia Qualified Code(s): D72.825 - Bandemia Is this a current diagnosis for this admission?: Yes Plan: Resolved; secondary to pneumonia. (11) Anemia Is this a current diagnosis for this admission?: Yes Plan: Stable; Likely secondary to hemodilution. We will continue to monitor. (12) DVT prophylaxis Is this a current diagnosis for this admission?: Yes Plan: Heparin - Time Anticipated discharge: Home, Home with Homehealth - w/ PT/OT Within: within 48 hours
[2017-12-23] MEDS: IPRATROPIUM/ALBUTEROL 0.5-2.5 MG/3 ML AMPUL NEB SCH ×2 (00:04→08:01)
[2017-12-23] MEDS: HEPARIN SOD (PORCINE) 5,000 UNIT/ML 1 ML SYRINGE SUBCUT SCH ×3 (05:22→22:19)
[2017-12-23] MEDS: MAG HYDROX/AL HYDROX/SIMETH SUSP 30 ML UDCUP PO PRN (05:31)
[2017-12-23] MEDS: FOLIC ACID 1 MG TABLET PO SCH (10:47)
[2017-12-23] MEDS: GUAIFENESIN 600 MG TABLET.SA PO SCH ×2 (10:47→22:19)
[2017-12-23] MEDS: FAMOTIDINE 20 MG TABLET PO SCH ×2 (10:47→22:19)
[2017-12-23] MEDS: DOCUSATE SODIUM 100 MG CAPSULE PO SCH (10:47)
[2017-12-23] MEDS: THIAMINE HCL 100 MG TABLET PO SCH (10:47)
[2017-12-23] MEDS: MULTIVITAMIN TABLET PO SCH (10:47)
[2017-12-23] MEDS ORDERED: IPRATROPIUM/ALBUTEROL 0.5-2.5 MG/3 ML AMPUL NEB PRN ×2 (11:03)
--- NOTE | 2017-12-23 13:46 | PDOC PROGRESS REPORT ---
Subjective Progress Note for:: 12/23/17 Subjective:: Patient is a 72-year-old male with a past medical history of EtOH dependence who was admitted for renal failure, rhabdomyolysis, and left lower lobe pneumonia. He is currently on azithromycin and ceftriaxone. His kidney function has returned to normal. Creatinine kinase is trending downward. Seen on morning rounds. He is found sitting upright in the bedside chair on room air. He states that his breathing has continued to improve. He is frustrated by his continued general weakness, however he continues to be resistant to recommendations for care home for short-term rehab. He is agreeable to a home health referral for PT/OT. He is encouraged to ambulate today with assistance. He has no new questions or concerns at this time. Reason For Visit: PNEUMONIA, RENAL FAILURE, RHABDO Physical Exam Vital Signs: Temp Pulse Resp BP Pulse Ox 98.3 F 102 H 22 H 110/66 90 L 12/23/17 08:22 12/23/17 08:22 12/23/17 08:22 12/23/17 08:22 12/23/17 08:22 Pulse Oximeter Continuous Start: 12/15/17 06: 09 Freq: RTQ4 Status: Active Document 12/23/17 08:01 [facility] (Rec: 12/23/17 10:57 [facility] [email or web address]) Pulse Oximetry Assessment Oxygen Saturation (92-100) 93 Oxygen Flow Rate (L/min) 1 Oxygen Delivery Method Nasal Cannula Equipment Usage Equipment in Use Continuous SpO2 Machine # 3 Intake & Output 12/22/17 12/23/17 12/24/17 06:59 06:59 06:59 Intake Total 1763 6783 Output Total 550 2750 Balance 1213 4033 Weight 78.4 kg 77.9 kg General appearance: PRESENT: no acute distress, well-developed, well-nourished Head exam: PRESENT: atraumatic, normocephalic Eye exam: PRESENT: conjunctiva pink, EOMI, PERRLA. ABSENT: scleral icterus Ear exam: PRESENT: normal external ear exam Mouth exam: PRESENT: moist, tongue midline Neck exam: ABSENT: carotid bruit, JVD, lymphadenopathy, thyromegaly Respiratory exam: PRESENT: prolonged expiratory phas, rhonchi, symmetrical, unlabored. ABSENT: rales, wheezes Cardiovascular exam: PRESENT: RRR, +S1, +S2, tachycardia. ABSENT: diastolic murmur, rubs, systolic murmur Pulses: PRESENT: normal dorsalis pedis pul Vascular exam: PRESENT: normal capillary refill GI/Abdominal exam: PRESENT: normal bowel sounds, soft. ABSENT: distended, guarding, mass, organolmegaly, rebound, tenderness Rectal exam: PRESENT: deferred Extremities exam: PRESENT: full ROM. ABSENT: calf tenderness, clubbing, pedal edema Neurological exam: PRESENT: alert, awake, oriented to person, oriented to place , oriented to time, oriented to situation, CN II-XII grossly intact. ABSENT: motor sensory deficit Psychiatric exam: PRESENT: agitated, appropriate affect. ABSENT: homicidal ideation, suicidal ideation Skin exam: PRESENT: dry, intact, warm. ABSENT: cyanosis, rash Results Laboratory Results: 12/22/17 06:07 12/22/17 06:07 12/15/17 12/15/17 12/16/17 10:00 18:30 04:19 Creatine Kinase 83914 H 30454 H 39358 H 12/16/17 12/16/17 12/17/17 10:18 18:20 05:24 Creatine Kinase 11808 H 83614 H 23579 H 12/17/17 12/17/17 12/18/17 10:25 18:00 05:06 Creatine Kinase 29055 H 9264 H 6658 H 12/19/17 12/20/17 12/22/17 05:23 05:03 06:07 Creatine Kinase 2212 H 722 H 293 H Impressions: Abdomen Ultrasound 12/15/17 00:23 IMPRESSION: 1. No gallstones. 2. Hepatic steatosis. Chest X-Ray 12/21/17 12:06 IMPRESSION: Relatively stable appearance of the chest. This includes basilar airspace disease on the left. Probable underlying COPD and chronic changes otherwise. Assessment & Plan - Diagnosis (1) Renal failure Qualifiers: Renal failure chronicity: unspecified chronicity Qualified Code(s): N19 - Unspecified kidney failure Is this a current diagnosis for this admission?: Yes Plan: Resolved; Secondary to rhabdomyolysis and dehydration in the setting of pneumonia. Creatinine on admission was 3.11 and is now stable at 0.85. We will discontinue IV fluids today. Encourage p.o. fluids. Will avoid nephrotoxic medications. (2) Rhabdomyolysis Qualifiers: Rhabdomyolysis type: non-traumatic Qualified Code(s): M62.82 - Rhabdomyolysis Is this a current diagnosis for this admission?: Yes Plan: Improving; after a fall from bed with unknown downtime in the setting of pneumonia. CK on admission was 50,000 and has trended down to 293. Encourage p.o. intake. Will encourage mobility today. PT/OT have been consulted. (3) Pneumonia Qualifiers: Pneumonia type: due to unspecified organism Laterality: left Lung location: lower lobe of lung Qualified Code(s): J18.1 - Lobar pneumonia, unspecified organism Is this a current diagnosis for this admission?: Yes Plan: Improved; the patient is now maintaining oxygen saturations while on room air. The patient completed 7 days of Rocephin and azithromycin. Blood cultures had no growth at 5 days. Sputum culture showed normal respiratory lisa. Repeat chest x-ray is essentially unchanged. We will continue nebulizer treatments as needed. Continue Mucinex twice daily. We will encourage mobility and use of incentive spirometry. The patient does have a history of tobacco use; will obtain a PFT to evaluate for underlying COPD. (4) Debility Is this a current diagnosis for this admission?: Yes Plan: Will ask PT/OT to evaluate and treat the patient per protocols. The patient will benefit from SNF for short-term rehab vs home health pt/ot services once stable for discharge. (5) Elevated troponin Is this a current diagnosis for this admission?: Yes Plan: The setting of renal failure and fall; no chest pain. Troponins trended downward. Echocardiogram was within normal limits. No additional workup required. (6) EtOH dependence Is this a current diagnosis for this admission?: Yes Plan: The patient has been placed on Klonopin, multivitamin, folic acid, and thiamine. No evidence of active withdrawal at this time. (7) Hypokalemia Is this a current diagnosis for this admission?: Yes Plan: Resolved; will continue to monitor and replace as necessary. (8) Hyponatremia Is this a current diagnosis for this admission?: Yes Plan: Resolved; secondary to dehydration. He is on IV fluids. (9) Constipation Is this a current diagnosis for this admission?: Yes Plan: Resolved. (10) Leukocytosis Qualifiers: Leukocytosis type: bandemia Qualified Code(s): D72.825 - Bandemia Is this a current diagnosis for this admission?: Yes Plan: Resolved; secondary to pneumonia. (11) Anemia Is this a current diagnosis for this admission?: Yes Plan: Stable; Likely secondary to hemodilution. We will continue to monitor. (12) DVT prophylaxis Is this a current diagnosis for this admission?: Yes Plan: Heparin - Time Time Spent with patient: 25-34 minutes Medications reviewed and adjusted accordingly: Yes Anticipated discharge: Home with Homehealth - PT/OT Within: within 24 hours
[2017-12-24 05:55] LABS: ANION GAP 6 (5-19); BLOOD UREA NITROGEN 12 mg/dL (7-20); CALCIUM 9.1 mg/dL (8.4-10.2); CARBON DIOXIDE 26 mmol/L (22-30); CHLORIDE 104 mmol/L (98-107); CREATINE KINASE 190 U/L (55-170); GLUCOSE 95 mg/dL (75-110); POTASSIUM 4.6 mmol/L (3.6-5.0); SODIUM 136.4 mmol/L (137-145)
[2017-12-24] MEDS: HEPARIN SOD (PORCINE) 5,000 UNIT/ML 1 ML SYRINGE SUBCUT SCH ×2 (05:55→14:10)
[2017-12-24 07:16] LABS: HEMATOCRIT 35.4 % (37.9-51.0); HEMOGLOBIN 11.9 g/dL (13.5-17.0); MEAN CORPUSCULAR HEMOGLOBIN 27.4 pg (27.0-33.4); MEAN CORPUSCULAR HGB CONC 33.5 g/dL (32.0-36.0); MEAN CORPUSCULAR VOLUME 82 fl (80-97); RED BLOOD COUNT 4.33 10^6/uL (4.35-5.55); RED CELL DISTRIBUTION WIDTH 15.1 % (11.5-14.0); WHITE BLOOD COUNT 6.1 10^3/uL (4.0-10.5)
[2017-12-24 07:21] LABS: PLATELET COUNT 420 10^3/uL (150-450)
[2017-12-24] MEDS ORDERED: TIOTROPIUM BROMIDE DPI 5 CAP/KIT (18 MCG/CAP) IH SCH (10:00)
[2017-12-24] MEDS ORDERED: SALMETEROL XINAFOATE DISKUS 50 MCG/1 DOSE 28 DOSE IH SCH (10:00)
[2017-12-24] MEDS: FAMOTIDINE 20 MG TABLET PO SCH (10:19)
[2017-12-24] MEDS: MULTIVITAMIN TABLET PO SCH (10:19)
[2017-12-24] MEDS: GUAIFENESIN 600 MG TABLET.SA PO SCH (10:19)
[2017-12-24] MEDS: DOCUSATE SODIUM 100 MG CAPSULE PO SCH (10:19)
[2017-12-24] MEDS: THIAMINE HCL 100 MG TABLET PO SCH (10:19)
[2017-12-24] MEDS: FOLIC ACID 1 MG TABLET PO SCH (10:19)
--- NOTE | 2017-12-24 14:44 | PDOC DISCHARGE SUMMARY ---
General - Admit/Disc Date/PCP Admission Date/Primary Care Provider: 12/15/17 04:23 Discharge Date: 12/24/17 - Discharge Diagnosis (1) Renal failure Is this a current diagnosis for this admission?: Yes (2) Rhabdomyolysis Is this a current diagnosis for this admission?: Yes (3) Pneumonia Is this a current diagnosis for this admission?: Yes (4) Debility Is this a current diagnosis for this admission?: Yes (5) Elevated troponin Is this a current diagnosis for this admission?: Yes (6) EtOH dependence Is this a current diagnosis for this admission?: Yes (7) Hypokalemia Is this a current diagnosis for this admission?: Yes (8) Hyponatremia Is this a current diagnosis for this admission?: Yes (9) Constipation Is this a current diagnosis for this admission?: Yes (10) Leukocytosis Is this a current diagnosis for this admission?: Yes (11) Anemia Is this a current diagnosis for this admission?: Yes (12) DVT prophylaxis Is this a current diagnosis for this admission?: Yes - Additional Information Resuscitation Status: Full Code Discharge Diet: As Tolerated Discharge Activity: Activity As Tolerated, Slowly Increase Activity Prescriptions: Folic Acid [Folvite 1 mg Tablet] 1 mg PO DAILY #90 tablet Guaifenesin [Mucinex Sr 600 mg Tablet.sa] 600 mg PO Q12 #60 tablet.sa Ipratropium/Albuterol Sulfate [Duoneb 3 ml Ampul] 3 ml NEB RTQ6HP PRN #120 vial.neb PRN Reason: Shortness Of Breath Multivitamin [Tab-A-Miguel A (Multiple Vitamin) Tablet] 1 tab PO DAILY #90 tablet Nebulizer [Nebulizer Machine] 1 each ASDIR PRN #1 kit PRN Reason: Salmeterol Xinafoate [Serevent Diskus 50 Mcg/Dose 28 Dose/Diskus] 50 mcg IH Q12 #1 disk Thiamine HCl [Thiamine 100 mg Tablet] 100 mg PO DAILY #90 tablet Tiotropium [place] [Spiriva Handihaler 18 mcg/dose (30 Dose)] 1 cap IH DAILY # 30 capsule Home Medications: Aspirin [Aspirin 81 mg Chewable Tablet] 81 mg PO DAILY 12/15/17 Folic Acid [Folvite 1 mg Tablet] 1 mg PO DAILY #90 tablet 12/24/17 Guaifenesin [Mucinex Sr 600 mg Tablet.sa] 600 mg PO Q12 #60 tablet.sa 12/24/17 Ipratropium/Albuterol Sulfate [Duoneb 3 ml Ampul] 3 ml NEB RTQ6HP PRN #120 vial.neb 12/24/17 Multivitamin [Tab-A-Miguel A (Multiple Vitamin) Tablet] 1 tab PO DAILY #90 tablet Nebulizer [Nebulizer Machine] 1 each MC ASDIR PRN #1 kit 12/24/17 Salmeterol Xinafoate [Serevent Diskus 50 Mcg/Dose 28 Dose/Diskus] 50 mcg IH Q12 #1 disk 12/24/17 Thiamine HCl [Thiamine 100 mg Tablet] 100 mg PO DAILY #90 tablet 12/24/17 Tiotropium [place] [Spiriva Handihaler 18 mcg/dose (30 Dose)] 1 cap IH DAILY # 30 capsule 12/24/17 Tiotropium [place] [Spiriva Handihaler 5 Cap/Kit (18 Mcg/Cap)] 1 cap IH DAILY kit 12/24/17 History of Present Illness History of Present Illness: Per H&P by Dr. Park: DANK CLINE is a 72 year old male who was lying on the couch and apparently rolled off onto the ground. He was unconscious and his called EMS patient was brought to the emergency room. Here he was found to have renal failure, rhabdomyolysis, and left lower lobe pneumonia. Patient was started on antibiotics and fluids and was transferred to our care for further management. Hospital Course Hospital Course: The patient was admitted with a left lower lobe pneumonia, rhabdomyolysis with a CK of 50,000, and acute kidney failure with a creatinine of 3.11. The patient 's troponins trended downwards and an echocardiogram was obtained revealing a normal ejection fraction and mild to moderate diastolic dysfunction. The kidney failure resolved with IV fluids and creatinine kinase trended downward to 190 with resolution of his myalgias. He completed a seven-day course of Rocephin and azithromycin for his pneumonia. Final blood cultures had no growth at 5 days and sputum culture showed normal respiratory lisa. We did attempt to obtain a PFT to evaluate his underlying COPD, however the patient was unable to provide good breaths. Two of his attempts did demonstrate severe obstruction, however, the patient was unable to complete full testing and so final report is unavailable. He was placed on Spiriva and Symbicort at discharge. The patient does qualify for home oxygen. He did work with PT/OT and is agreeable to continued home health services. On day of discharge, he is in stable condition and maintaining oxygen saturations > 92% while on supplemental oxygen at 2 lpm. He is instructed to follow up with his primary care provider within 1 week. He would benefit from outpatient pulmonary function testing. He is provided prescriptions for a walker, nebulizer machine, home oxygen, folic acid, thiamine, multivitamine, mucinex, duonebs, Serevent, and Spiriva. Physical Exam Vital Signs: Temp Pulse Resp BP Pulse Ox 97.6 F 93 16 134/76 H 95 12/24/17 11:02 12/24/17 11:02 12/24/17 11:02 12/24/17 11:02 12/24/17 11:35 Pulse Oximeter Continuous Start: 12/15/17 06: 09 Freq: RTQ4 Status: Active Document 12/24/17 11:35 TPO (Rec: 12/24/17 11:35 TPO [email or web address]) Pulse Oximetry Assessment Oxygen Saturation (92-100) 95 Oxygen Flow Rate (L/min) 1 Oxygen Delivery Method Nasal Cannula Fraction of Inspired Oxygen (FIO2) 24 Equipment Usage Equipment in Use Continuous SpO2 Machine # 3 Intake & Output 12/23/17 12/24/17 12/25/17 06:59 06:59 06:59 Intake Total 6783 1469 Output Total 2750 1460 Balance 4033 9 Weight 77.9 kg 76.3 kg General appearance: PRESENT: no acute distress, well-developed, well-nourished Head exam: PRESENT: atraumatic, normocephalic Eye exam: PRESENT: conjunctiva pink, EOMI, PERRLA. ABSENT: scleral icterus Ear exam: PRESENT: normal external ear exam Mouth exam: PRESENT: moist, tongue midline Neck exam: ABSENT: carotid bruit, JVD, lymphadenopathy, thyromegaly Respiratory exam: PRESENT: prolonged expiratory phas, rhonchi - Occasional, symmetrical, unlabored, other - supplemental oxygen at 2 lpm. ABSENT: rales, wheezes Cardiovascular exam: PRESENT: RRR, +S1, +S2. ABSENT: diastolic murmur, rubs, systolic murmur Pulses: PRESENT: normal dorsalis pedis pul Vascular exam: PRESENT: normal capillary refill GI/Abdominal exam: PRESENT: normal bowel sounds, soft. ABSENT: distended, guarding, mass, organolmegaly, rebound, tenderness Rectal exam: PRESENT: deferred Extremities exam: PRESENT: full ROM. ABSENT: calf tenderness, clubbing, pedal edema Neurological exam: PRESENT: alert, awake, oriented to person, oriented to place , oriented to time, oriented to situation, CN II-XII grossly intact. ABSENT: motor sensory deficit Psychiatric exam: PRESENT: appropriate affect, normal mood. ABSENT: homicidal ideation, suicidal ideation Skin exam: PRESENT: dry, intact, warm. ABSENT: cyanosis, rash Results Laboratory Results: 12/24/17 06:51 12/24/17 04:55 12/24/17 12/24/17 12/24/17 04:55 04:55 06:51 WBC Cancelled 6.1 RBC Cancelled 4.33 L Hgb Cancelled 11.9 L Hct Cancelled 35.4 L MCV Cancelled 82 MCH Cancelled 27.4 MCHC Cancelled 33.5 RDW Cancelled 15.1 H Plt Count Cancelled 420 D Sodium 136.4 L Potassium 4.6 Chloride 104 Carbon Dioxide 26 Anion Gap 6 BUN 12 Creatinine 0.91 Est GFR ( Amer) > 60 Est GFR (Non-Af Amer) > 60 Glucose 95 Calcium 9.1 12/15/17 12/15/17 12/16/17 10:00 18:30 04:19 Creatine Kinase 24414 H 56942 H 61091 H 12/16/17 12/16/17 12/17/17 10:18 18:20 05:24 Creatine Kinase 30539 H 78737 H 25031 H 12/17/17 12/17/17 12/18/17 10:25 18:00 05:06 Creatine Kinase 10747 H 9264 H 6658 H 12/19/17 12/20/17 12/22/17 05:23 05:03 06:07 Creatine Kinase 2212 H 722 H 293 H 12/24/17 04:55 Creatine Kinase 190 H Impressions: Abdomen Ultrasound 12/15/17 00:23 IMPRESSION: 1. No gallstones. 2. Hepatic steatosis. Chest X-Ray 12/21/17 12:06 IMPRESSION: Relatively stable appearance of the chest. This includes basilar airspace disease on the left. Probable underlying COPD and chronic changes otherwise. Qualifiers PATEINT BEING DISCHARGED WITH ANY OF THE FOLLOWING DIAGNOSIS?: No
[2017-12-24 17:21] VITALS: BP 142/73
== END 2017-12-24 18:39 | disposition home health service (06) | DRG 194 ==
LOC: ER 20:54 → EH 12-15 04:23 → 4W 12-15 21:30
PROVIDERS: ADMIT Internal Medicine; ATTEND Internal Medicine
PROC: 3E0F73Z Introduction of Anti-inflammatory into Respiratory Tract, Via Natural or Artificial Opening (ICD-10-PCS; principal; 2017-12-15)
DX: J18.1 Lobar pneumonia, unspecified organism (principal); N17.9 Acute kidney failure, unspecified; M62.82 Rhabdomyolysis; E87.1 Hypo-osmolality and hyponatremia; J44.1 Chronic obstructive pulmonary disease with (acute) exacerbation; E87.6 Hypokalemia; E86.0 Dehydration; K59.00 Constipation, unspecified; R74.8 Abnormal levels of other serum enzymes; F10.20 Alcohol dependence, uncomplicated; D64.9 Anemia, unspecified; D72.829 Elevated white blood cell count, unspecified; R53.81 Other malaise; Z79.82 Long term (current) use of aspirin; Z90.49 Acquired absence of other specified parts of digestive tract; Z91.81 History of falling
CPT/HCPCS: 36415; 51702; 71045; 71046; 76705; 80048; 80053; 81001; 82550; 82553; 82803; 83605; 83880; 84484; 85025; 85027; 87040; 87070; 87205; 87804; 93005; 93010; 93306; 94762; 94799; 99291; 99292; G8978-GP; G8979-GP; G8987-GO; G8988-GO; J0456; J0696; J1644; J3480; J3490; J7030; J7060; J7620

== ENCOUNTER 2019-03-26 20:03 | Inpatient (IN) | payer OTHER, MEDICARE ==
[2019-03-26] MEDS ORDERED: NORMAL SALINE 1000 ML 500 ML IV ONE (21:48)
--- NOTE | 2019-03-26 21:53 | ER Document Report ---
ED General - General Stated Complaint: RIGHT SHOULDER PAIN Time Seen by Provider: 03/26/19 21:41 TRAVEL OUTSIDE OF THE [place] IN LAST 30 DAYS: No - HPI Notes: Patient is a 73-year-old male that presents to the emergency department for chief complaint of altered mental status and fall. EMS was called by patient's neighbors when they noticed his lites were on at 3 AM last night and then did not see him throughout the day today. EMS went to the house this evening and found the patient lying in his front doorway. Patient denies falling and states that it was hot in his house so he laid down outside. He initially complained of right shoulder pain to EMS but denies that to me. He has no complaints currently to me. Patient does have a coarse cough and when asked explicitly if he has felt short of breath or had a cough he s tates sometimes. EMS reported a very poor living situation including a dog, bugs and fleas. Patient states he lives at home alone and feels safe. He denies anyone trying to harm him. He denies fevers and chills. Patient is a poor historian which does limit HPI. Past Medical History: Hypertension Past Surgical History: Unknown Social History: Denies tobacco and alcohol Family History: Reviewed and noncontributory for presenting illness Allergies: Reviewed, see documented allergy list. REVIEW OF SYSTEMS: CONSTITUTIONAL : No fever No chills No diaphoresis No recent illness EENT: No vision changes No congestion No sore throat CARDIOVASCULAR: No chest pain No palpitations RESPIRATORY: shortness of breath cough No difficulty breathing GASTROINTESTINAL: No abdominal pain No nausea No vomiting No diarrhea GENITOURINARY: No dysuria No hematuria No difficulty urinating MUSCULOSKELETAL: No back pain No leg pain arm pain SKIN: No rashes No lesions LYMPHATIC: No swollen, enlarged glands. NEUROLOGICAL: No lightheadedness No headache No weakness No paresthesias PSYCHIATRIC: No anxiety No depression PHYSICAL EXAMINATION: Vital signs reviewed, nursing noted reviewed. GENERAL: Well-appearing, well-nourished and in no acute distress. HEAD: Atraumatic, normocephalic. EYES: Eyes appear normal, extraocular movements intact, sclera anicteric, conjunctiva are normal. ENT: nares patent, oropharynx clear without exudates. Dry mucous membranes. NECK: No midline spinal tenderness, normal range of motion, supple without l ymphadenopathy LUNGS: Tachypneic, mild accessory muscle use, bilateral rhonchi and coarse nonproductive cough HEART: Tachycardic rate and regular rhythm without murmurs ABDOMEN: Soft, nontender, normoactive bowel sounds. No rebound, guarding, or rigidity. No masses appreciated. EXTREMITIES: Normal right shoulder exam, no long bone deformity or tenderness, good range of motion, no pitting or edema. Back: Midline thoracic edema, abrasion and bony tenderness, normal lumbar exam NEUROLOGICAL: Oriented to person and place, disoriented to time and situation moves all extremities spontaneously Motor and sensory grossly intact on exam. PSYCH: Normal mood, normal affect. SKIN: Warm, Dry, normal turgor, abrasions to thoracic back - Related Data Allergies/Adverse Reactions: No Known Allergies Allergy (Unverified 12/14/17 21:08) Past Medical History - Social History Smoking Status: Never Smoker Family History: Reviewed & Not Pertinent Renal/ Medical History: Denies: Hx Peritoneal Dialysis Past Surgical History: Reports: Hx Appendectomy Physical Exam - Vital signs Vitals: Resp Pulse Ox 21 H 95 03/26/19 21:17 03/26/19 21:17 Course - Re-evaluation Re-evalutation: 03/26/19 21:52 Vitals reviewed. Nursing notes reviewed. Patient is oxygenating well on room air but does have a coarse cough as well as bilateral rhonchi and some accessory muscle use. And concern for possible fluid overload and therefore IV hydration will be started slow and will increase as patient tolerates. He is also tachycardic but has a stable blood pressure. 03/27/19 00:34 Patient has tolerated IV fluids and has been ordered a total of 1500 mL's. He has a large left lower lobe pneumonia and is meeting severe sepsis criteria. Patient ordered IV Rocephin and azithromycin. Blood cultures have been obtained. Patient's LFTs were elevated therefore abdominal CT scan was obtained. He has a normal-appearing gallbladder but does have hepatic steatosis which is likely the cause of his elevated LFTs along with his severe sepsis. Patient's troponin is indeterminate but he has not had any complaint of chest pain or ischemic changes on EKG. Imaging of patient's head, cervical spine, shoulder and thoracic spine show no acute injury. It is still unclear whether he fell or laid down on his front porch although the abrasion and swelling to his back suggest a fall. Patient will be admitted to the hospital for further management. is care was discussed with Dr. Gallo who accepts admission. Laboratory 03/26/19 03/26/19 03/26/19 21:30 21:30 21:30 WBC 20.4 H RBC 3.90 L Hgb 9.6 L Hct 30.4 L MCV 78 L MCH 24.6 L MCHC 31.5 L RDW 16.7 H Plt Count 701 H Total Counted 100 Seg Neutrophils % Not Reportable Seg Neuts % (Manual) 88 H Band Neutrophils % 2 L Lymphocytes % Not Reportable Lymphocytes % (Manual) 3 L Atypical Lymphs % 1 Monocytes % Not Reportable Monocytes % (Manual) 6 Eosinophils % Not Reportable Eosinophils % (Manual) 0 Basophils % Not Reportable Basophils % (Manual) 0 Absolute Neutrophils Not Reportable Abs Neuts (Manual) 18.4 H Absolute Lymphocytes Not Reportable Abs Lymphs (Manual) 0.8 Absolute Monocytes Not Reportable Abs Monocytes (Manual) 1.2 Absolute Eosinophils Not Reportable Absolute Eos (Manual) 0.0 Absolute Basophils Not Reportable Abs Basophils (Manual) 0.0 Platelet Comment INCREASED Polychromasia SLIGHT Hypochromasia 2+ Anisocytosis 1+ Stomatocytes SLIGHT PT 16.0 H INR 1.22 VBG pH VBG pCO2 VBG HCO3 VBG Base Excess Sodium 141.9 Potassium 4.2 Chloride 99 Carbon Dioxide 30 Anion Gap 13 BUN 32 H Creatinine 0.62 Est GFR ( Amer) > 60 Est GFR (Non-Af Amer) > 60 Glucose 124 H POC Glucose Lactic Acid Calcium 9.2 Total Bilirubin 3.7 H Direct Bilirubin 2.8 H Neonat Total Bilirubin Not Reportable Neonat Direct Bilirubin Not Reportable Neonat Indirect Bili Not Reportable AST 92 H ALT 90 H Alkaline Phosphatase 551 H Creatine Kinase 556 H Troponin I Total Protein 6.1 L Albumin 2.7 L Urine Color Urine Appearance Urine pH Ur Specific Robert Urine Protein Urine Glucose (UA) Urine Ketones Urine Blood Urine Nitrite Urine Bilirubin Urine Urobilinogen Ur Leukocyte Esterase Urine WBC (Auto) Urine RBC (Auto) Urine Bacteria (Auto) Squamous Epi Cells Auto Urine Mucus (Auto) Urine Ascorbic Acid Serum Alcohol 03/26/19 03/26/19 03/26/19 21:30 21:30 21:30 WBC RBC Hgb Hct MCV MCH MCHC RDW Plt Count Total Counted Seg Neutrophils % Seg Neuts % (Manual) Band Neutrophils % Lymphocytes % Lymphocytes % (Manual) Atypical Lymphs % Monocytes % Monocytes % (Manual) Eosinophils % Eosinophils % (Manual) Basophils % Basophils % (Manual) Absolute Neutrophils Abs Neuts (Manual) Absolute Lymphocytes Abs Lymphs (Manual) Absolute Monocytes Abs Monocytes (Manual) Absolute Eosinophils Absolute Eos (Manual) Absolute Basophils Abs Basophils (Manual) Platelet Comment Polychromasia Hypochromasia Anisocytosis Stomatocytes PT INR VBG pH 7.41 VBG pCO2 52.8 VBG HCO3 32.6 H VBG Base Excess 7.0 Sodium Potassium Chloride Carbon Dioxide Anion Gap BUN Creatinine Est GFR ( Amer) Est GFR (Non-Af Amer) Glucose POC Glucose Lactic Acid 2.7 H Calcium Total Bilirubin Direct Bilirubin Neonat Total Bilirubin Neonat Direct Bilirubin Neonat Indirect Bili AST ALT Alkaline Phosphatase Creatine Kinase Troponin I 0.062 Total Protein Albumin Urine Color Urine Appearance Urine pH Ur Specific Robert Urine Protein Urine Glucose (UA) Urine Ketones Urine Blood Urine Nitrite Urine Bilirubin Urine Urobilinogen Ur Leukocyte Esterase Urine WBC (Auto) Urine RBC (Auto) Urine Bacteria (Auto) Squamous Epi Cells Auto Urine Mucus (Auto) Urine Ascorbic Acid Serum Alcohol 03/26/19 03/26/19 03/26/19 21:30 22:10 22:28 WBC RBC Hgb Hct MCV MCH MCHC RDW Plt Count Total Counted Seg Neutrophils % Seg Neuts % (Manual) Band Neutrophils % Lymphocytes % Lymphocytes % (Manual) Atypical Lymphs % Monocytes % Monocytes % (Manual) Eosinophils % Eosinophils % (Manual) Basophils % Basophils % (Manual) Absolute Neutrophils Abs Neuts (Manual) Absolute Lymphocytes Abs Lymphs (Manual) Absolute Monocytes Abs Monocytes (Manual) Absolute Eosinophils Absolute Eos (Manual) Absolute Basophils Abs Basophils (Manual) Platelet Comment Polychromasia Hypochromasia Anisocytosis Stomatocytes PT INR VBG pH VBG pCO2 VBG HCO3 VBG Base Excess Sodium Potassium Chloride Carbon Dioxide Anion Gap BUN Creatinine Est GFR ( Amer) Est GFR (Non-Af Amer) Glucose POC Glucose 119 H Lactic Acid Calcium Total Bilirubin Direct Bilirubin Neonat Total Bilirubin Neonat Direct Bilirubin Neonat Indirect Bili AST ALT Alkaline Phosphatase Creatine Kinase Troponin I Total Protein Albumin Urine Color MAHESH Urine Appearance SLIGHTLY-CLOUDY Urine pH 5.0 Ur Specific Robert 1.023 Urine Protein NEGATIVE Urine Glucose (UA) NEGATIVE Urine Ketones TRACE H Urine Blood SMALL H Urine Nitrite NEGATIVE Urine Bilirubin SMALL H Urine Urobilinogen 4.0 H Ur Leukocyte Esterase NEGATIVE Urine WBC (Auto) 2 Urine RBC (Auto) 1 Urine Bacteria (Auto) TRACE Squamous Epi Cells Auto 1 Urine Mucus (Auto) FEW Urine Ascorbic Acid NEGATIVE Serum Alcohol < 10 Shoulder X-Ray 03/26/19 21:05 IMPRESSION: 1. No acute findings. Cervical Spine CT 03/26/19 21:47 IMPRESSION: 1. No acute intracranial hemorrhage. 2. No acute fracture of the cervical spine. Chest X-Ray 03/26/19 21:47 IMPRESSION: 1. Asymmetric left perihilar edema with left hilar prominence, suggesting pneumonia. Cannot exclude a left hilar mass. Head CT 03/26/19 21:47 IMPRESSION: 1. No acute intracranial hemorrhage. 2. No acute fracture of the cervical spine. Thoracic Spine CT 03/26/19 21:47 IMPRESSION: No acute compression fracture of the thoracic spine. Abdomen/Pelvis CT 03/26/19 22:31 IMPRESSION: 1. Hepatic steatosis. Correlate with lab values. 2. Groundglass opacity and consolidation in the left lung base. Consider chest CT scan for complete evaluation. 3. Small pericardial effusion. 4. 11.0 mm solid pulmonary nodule. Consider a non-contrast Chest CT at 3 months, a PET/CT, or tissue sampling. Reference: Radiology. 2017; 284(1):228-43. - Vital Signs Vital signs: Temp Pulse Resp BP Pulse Ox 97.7 F 25 H 170/72 H 94 03/26/19 21:24 03/26/19 22:02 03/26/19 22:02 03/26/19 22:02 - Laboratory Result Diagrams: 03/26/19 21:30 03/26/19 21:30 Laboratory results interpreted by me: 03/26/19 03/26/19 03/26/19 21:30 21:30 21:30 WBC 20.4 H RBC 3.90 L Hgb 9.6 L Hct 30.4 L MCV 78 L MCH 24.6 L MCHC 31.5 L RDW 16.7 H Plt Count 701 H Seg Neuts % (Manual) 88 H Band Neutrophils % 2 L Lymphocytes % (Manual) 3 L Abs Neuts (Manual) 18.4 H PT 16.0 H VBG HCO3 BUN 32 H Glucose 124 H POC Glucose Lactic Acid Total Bilirubin 3.7 H Direct Bilirubin 2.8 H AST 92 H ALT 90 H Alkaline Phosphatase 551 H Creatine Kinase 556 H Total Protein 6.1 L Albumin 2.7 L Urine Ketones Urine Blood Urine Bilirubin Urine Urobilinogen 03/26/19 03/26/19 03/26/19 21:30 21:30 22:10 WBC RBC Hgb Hct MCV MCH MCHC RDW Plt Count Seg Neuts % (Manual) Band Neutrophils % Lymphocytes % (Manual) Abs Neuts (Manual) PT VBG HCO3 32.6 H BUN Glucose POC Glucose Lactic Acid 2.7 H Total Bilirubin Direct Bilirubin AST ALT Alkaline Phosphatase Creatine Kinase Total Protein Albumin Urine Ketones TRACE H Urine Blood SMALL H Urine Bilirubin SMALL H Urine Urobilinogen 4.0 H 03/26/19 22:28 WBC RBC Hgb Hct MCV MCH MCHC RDW Plt Count Seg Neuts % (Manual) Band Neutrophils % Lymphocytes % (Manual) Abs Neuts (Manual) PT VBG HCO3 BUN Glucose POC Glucose 119 H Lactic Acid Total Bilirubin Direct Bilirubin AST ALT Alkaline Phosphatase Creatine Kinase Total Protein Albumin Urine Ketones Urine Blood Urine Bilirubin Urine Urobilinogen - EKG Interpretation by Me Additional EKG results interpreted by me: 03/26/19 22:57 Interpreted by myself [id number]: Sinus tachycardia, rate 112, normal axis, no ectopy, no STEMI Discharge - Discharge Clinical Impression: Severe sepsis, Elevated LFTs, Elevated bilirubin, Pericardial effusion without cardiac tamponade, Pulmonary nodule, Hepatic steatosis Pneumonia Qualifiers: Pneumonia type: due to unspecified organism Laterality: left Lung location: lower lobe of lung Qualified Code(s): J18.1 - Lobar pneumonia, unspecified organism Condition: Stable Disposition: ADMITTED INPATIENT Admitting Provider: Sabino (Hospitalist) Unit Admitted: [facility]
[2019-03-26 22:10] LABS: HEMATOCRIT 30.4 % (37.9-51.0); HEMOGLOBIN 9.6 g/dL (13.5-17.0); MEAN CORPUSCULAR HEMOGLOBIN 24.6 pg (27.0-33.4); MEAN CORPUSCULAR HGB CONC 31.5 g/dL (32.0-36.0); MEAN CORPUSCULAR VOLUME 78 fl (80-97); PLATELET COUNT 701 10^3/uL (150-450); RED CELL DISTRIBUTION WIDTH 16.7 % (11.5-14.0); WHITE BLOOD COUNT 20.4 10^3/uL (4.0-10.5)
[2019-03-26 22:12] LABS: VENOUS BLOOD HCO3 32.6 mmol/L (20-32); VENOUS BLOOD PCO2 52.8 mmHg (35-63); VENOUS BLOOD PH 7.41 (7.30-7.42)
[2019-03-26 22:23] LABS: ALANINE AMINOTRANSFERASE 90 U/L (21-72); ALBUMIN 2.7 g/dL (3.5-5.0); ALKALINE PHOSPHATASE 551 U/L (38-126); ANION GAP 13 (5-19); ASPARTATE AMINO TRANSFERASE 92 U/L (17-59); BILIRUBIN,DIRECT 2.8 mg/dL (0.0-0.4); BILIRUBIN,TOTAL 3.7 mg/dL (0.2-1.3); BLOOD UREA NITROGEN 32 mg/dL (7-20); CALCIUM 9.2 mg/dL (8.4-10.2); CARBON DIOXIDE 30 mmol/L (22-30); CHLORIDE 99 mmol/L (98-107); CREATINE KINASE 556 U/L (55-170); GLUCOSE 124 mg/dL (75-110); INTERNATIONAL RATION (INR) 1.22; POTASSIUM 4.2 mmol/L (3.6-5.0); SODIUM 141.9 mmol/L (137-145); TOTAL PROTEIN 6.1 g/dL (6.3-8.2)
[2019-03-26 22:28] LABS: ABSOLUTE LYMPHOCYTES# (MANUAL) 0.8 10^3/uL (0.5-4.7); ABSOLUTE MONOCYTES # (MANUAL) 1.2 10^3/uL (0.1-1.4); ABSOLUTE NEUTROPHILS# (MANUAL) 18.4 10^3/uL (1.7-8.2); BAND NEUTROPHILS % (MANUAL) 2 % (3-5); BASOPHILS % (MANUAL) 0 % (0-2); EOSINOPHILS % (MANUAL) 0 % (0-6); LYMPHOCYTES % (MANUAL) 3 % (13-45); MONOCYTES % (MANUAL) 6 % (3-13); SEGMENTED NEUTROPHILS % (MAN) 88 % (42-78); TOTAL CELLS COUNTED 100
[2019-03-26 22:29] LABS: ANISOCYTOSIS 1+; HYPOCHROMASIA 2+; PLATELET COMMENT INCREASED
[2019-03-26 22:30] LABS: POLYCHROMASIA SLIGHT
[2019-03-26 22:31] LABS: STOMATOCYTES SLIGHT
[2019-03-26 22:34] LABS: APPEARANCE,URINE SLIGHTLY-CLOUDY; BILIRUBIN,URINE SMALL (NEGATIVE); COLOR,URINE AMBER; GLUCOSE, URINE NEGATIVE (NEGATIVE); KETONES,URINE TRACE mg/dL (NEGATIVE); LEUKOCYTE ESTERASE,URINE NEGATIVE (NEGATIVE); NITRITE,URINE NEGATIVE (NEGATIVE); PROTEIN,URINE NEGATIVE (NEGATIVE); URINE SPECIFIC GRAVITY 1.023
[2019-03-26] MEDS ORDERED: AZITHROMYCIN INJ 500 MG VIAL IV ONE (22:58)
[2019-03-26] MEDS ORDERED: CEFTRIAXONE INJ 1000 MG VIAL IV ONE (22:58)
[2019-03-26] MEDS ORDERED: NORMAL SALINE 1000 ML 1,000 ML IV ONE (22:58)
--- NOTE | 2019-03-26 23:03 | RADIOLOGY REPORT (SQ) ---
EXAM DESCRIPTION: [facility]: XR CHEST 1 VIEW CLINICAL HISTORY: 73 years Male, cough COMPARISON: 12/21/2017 FINDINGS: Lungs are hyperinflated as on prior exam, suggesting COPD. There is left hilar prominence with a left parahilar interstitial prominence. No pneumothorax or significant pleural effusion. Heart size is normal. Bony structures are unremarkable. IMPRESSION: 1. Asymmetric left perihilar edema with left hilar prominence, suggesting pneumonia. Cannot exclude a left hilar mass.
--- NOTE | 2019-03-26 23:04 | RADIOLOGY REPORT (SQ) ---
EXAM DESCRIPTION: [facility]: XR SHOULDER 2 OR MORE VIEWS Views: 3 CLINICAL HISTORY: 73 years Male, pain COMPARISON: None. FINDINGS: Negative for acute fracture, dislocation, or radiopaque foreign body. IMPRESSION: 1. No acute findings.
--- NOTE | 2019-03-27 00:05 | RADIOLOGY REPORT (SQ) ---
CT BRAIN AND CERVICAL SPINE HISTORY: Trauma. COMPARISON: None. TECHNIQUE: CT scan of the brain and cervical spine without IV contrast. This exam was performed according to our departmental dose-optimization program, which includes automated exposure control, adjustment of the mA and/or kV according to patient size and/or use of iterative reconstruction technique. Motion artifact limits evaluation. FINDINGS: BRAIN: Diffuse involutional changes are present. There are areas of encephalomalacia in the bilateral parieto-occipital regions. No evidence of acute infarction, intracranial hemorrhage, extra-axial fluid collection, or midline shift. No air-fluid levels are seen in the paranasal sinuses to suggest acute sinusitis. No depressed skull fracture. CERVICAL SPINE: No acute cervical fracture or prevertebral soft tissue swelling. Multilevel degenerative disc disease along with facet arthropathy is present. The cervical alignment is grossly intact although motion artifact limits evaluation. IMPRESSION: 1. No acute intracranial hemorrhage. 2. No acute fracture of the cervical spine.
--- NOTE | 2019-03-27 00:07 | RADIOLOGY REPORT (SQ) ---
CT THORACIC SPINE WITHOUT IV CONTRAST HISTORY: Back pain. COMPARISON: None. TECHNIQUE: CT scan of the thoracic spine without IV contrast. This exam was performed according to our departmental dose-optimization program, which includes automated exposure control, adjustment of the mA and/or kV according to patient size and/or use of iterative reconstruction technique. FINDINGS: No acute compression fracture is seen. The thoracic alignment is maintained. The disc spaces are preserved. No advanced canal stenosis is identified. There are scattered areas of atelectasis with groundglass opacity and consolidation in the left lower lobe, which is partially visualized. IMPRESSION: No acute compression fracture of the thoracic spine.
--- NOTE | 2019-03-27 00:19 | RADIOLOGY REPORT (SQ) ---
CT ABDOMEN PELVIS WITH IV CONTRAST HISTORY: Abdominal pain. COMPARISON: None. TECHNIQUE: CT scan of the abdomen and pelvis was performed with IV contrast. This exam was performed according to our departmental dose-optimization program, which includes automated exposure control, adjustment of the mA and/or kV according to patient size and/or use of iterative reconstruction technique. FINDINGS: There is an area of groundglass opacity and consolidation in the left lung base. There is also a 1.1 cm nodule in the medial right lower lobe. There is a small pericardial effusion. There are calcified pleural plaques along the right lung pleura abutting the liver dome. No pleural effusion. There is no hiatal hernia. The liver, spleen, pancreas, gallbladder, adrenal glands, and kidneys are unremarkable. No urinary stones are seen. The pelvic organs are also unremarkable. No small bowel obstruction. The appendix is nonvisualized. There is no evidence of diverticulitis. No intraperitoneal free fluid or free air is identified. The aorta is normal caliber and contains atherosclerotic calcifications. No acute bony findings are seen. IMPRESSION: 1. Hepatic steatosis. Correlate with lab values. 2. Groundglass opacity and consolidation in the left lung base. Consider chest CT scan for complete evaluation. 3. Small pericardial effusion. 4. 11.0 mm solid pulmonary nodule. Consider a non-contrast Chest CT at 3 months, a PET/CT, or tissue sampling. Reference: Radiology. 2017; 284(1):228-43.
[2019-03-27 00:46] LABS: URINE AMPHETAMINES SCREEN NEGATIVE; URINE BARBITURATES SCREEN NEGATIVE; URINE BENZODIAZEPINES SCREEN NEGATIVE; URINE COCAINE SCREEN NEGATIVE; URINE MARIJUANA (THC) SCREEN NEGATIVE; URINE METHADONE SCREEN NEGATIVE; URINE PHENCYCLIDINE SCREEN NEGATIVE
[2019-03-27] MEDS ORDERED: MAGNESIUM HYDROXIDE SUSP 30 ML UDCUP PO PRN (01:49)
[2019-03-27] MEDS ORDERED: ONDANSETRON HCL INJ/PF 4 MG/2 ML SDV IV PRN (01:49)
[2019-03-27] MEDS ORDERED: MAG HYDROX/AL HYDROX/SIMETH SUSP 30 ML UDCUP PO PRN (01:49)
[2019-03-27] MEDS ORDERED: HYDRALAZINE HCL INJ/PF 20 MG/1 ML SDV IV PRN (01:57)
[2019-03-27] MEDS ORDERED: ACETAMINOPHEN 325 MG TABLET PO PRN (01:57)
[2019-03-27] MEDS ORDERED: MORPHINE SULFATE 10 MG/ML INJ IV PRN ×4 (01:57→12:18)
[2019-03-27 01:58] LABS: ARTERIAL BLOOD BASE EXCESS 4.6 mmol/L; ARTERIAL BLOOD H2CO3 1.25 mmol/L (1.05-1.35); ARTERIAL BLOOD HCO3 28.9 mmol/L (20-24); ARTERIAL BLOOD O2 SATURATION 93.9 % (94-98); ARTERIAL BLOOD PCO2 41.5 mmHg (35-45); ARTERIAL BLOOD PH 7.46 (7.35-7.45); ARTERIAL BLOOD PO2 65.5 mmHg (80-100); ARTERIAL BLOOD TOTAL CO2 30.1 mmol/L (23-27)
[2019-03-27 02:24] LABS: ARTERIAL BLOOD FIO2 ROOM AIR
[2019-03-27] MEDS ORDERED: METHYLPREDNISOLONE INJ 125 MG/2 ML SDV IV ONE (02:30)
[2019-03-27] MEDS: RINGERS SOLUTION,LACTATED 1,000 ML IV PRN ×2 (02:50→07:30)
--- NOTE | 2019-03-27 03:29 | PDOC H&P ---
History of Present Illness Admission Date/PCP: 03/27/19 00:41 No local PCP Patient complains of: Cough and dyspnea History of Present Illness: DANK CLINE is a 73 year old male who presented to the emergency room with a several day history of cough and dyspnea. He admits that for the last several days he is experienced a harsh cough productive of purulent sputum and dyspnea especially on exertion. He relates that he has been feeling subjectively feverish and it seemed so hot inside his house last night (03/25/2019) that he decided to lay down on the porch to sleep. His neighbors had noticed that his house lights were still on all night and they had not seen him throughout the day on 03/26/2019 so they went to investigate in the evening and found the patient still sleeping on his porch. They summoned EMS assuming he had fallen and that he was injured. EMS reports that his living situation is very unsanitary with bugs and fleas throughout the home and a dog still lying on the floor in the home. Patient is a very poor historian but denies prior similar episodes and has not identified any other aggravating or ameliorating factors for his current cough and dyspnea. In the emergency room he was found to have pulmonary hyperinflation and perihilar edema/pneumonia on the left side with an elevated white count and tachycardia as well as tachypnea. His serum lactate was slightly elevated at 2.7. Having met SIRS criteria and the patient will be admitted to the hospital for further evaluation and treatment. Past Medical History Cardiac Medical History: Reports: Hypertension Denies: Coronary Artery Disease Pulmonary Medical History: Reports: Bronchitis, Chronic Obstructive Pulmonary Disease (COPD), Pneumonia Denies: Asthma EENT Medical History: Denies: Cataracts, Ears - Hearing aids Neurological Medical History: Denies: Hemorrhagic CVA, Ischemic CVA, Seizures Endocrine Medical History: Denies: Diabetes Mellitus Type 1, Diabetes Mellitus Type 2, Hyperthyroidism, Hypothyroidism Renal/ Medical History: Denies: Chronic Kidney Disease, Nephrolithiasis Malignancy Medical History: Reports: None GI Medical History: Denies: Cirrhosis, Hepatitis Musculoskeltal Medical History: Reports: Other - Muscle problem after he fell on the floor overnight in the past Denies: Arthritis, Gout Skin Medical History: Denies: Eczema, Psoriasis Psychiatric Medical History: Reports: Tobacco Dependency Denies: Alcohol Dependency, Substance Abuse Traumatic Medical History: Reports: None Hematology: Reports: Anemia Denies: Bleeding Tendencies Infectious Medical History: Reports: None Past Surgical History Past Surgical History: Reports: Appendectomy Social History Information Source: Patient Lives with: Alone Smoking Status: Never Smoker Frequency of Alcohol Use: None - Patient denies current/recent alcohol use, in the past has consumed 2 or 3 beers per day on a fairly regular basis. Hx Recreational Drug Use: No Drugs: None Hx Prescription Drug Abuse: No - Advance Directive Resuscitation Status: Full Code Surrogate healthcare decision maker:: Neha Rosario Family History Family History: CAD, DM, Hypertension. denies: Malignancy Parental Family History Reviewed: Yes Children Family History Reviewed: No Sibling(s) Family History Reviewed.: Yes Medication/Allergy Home Medications: Aspirin [Aspirin 81 mg Chewable Tablet] 81 mg PO DAILY 12/15/17 Folic Acid [Folvite 1 mg Tablet] 1 mg PO DAILY #90 tablet 12/24/17 Guaifenesin [Mucinex Sr 600 mg Tablet.sa] 600 mg PO Q12 #60 tablet.sa 12/24/17 Ipratropium/Albuterol Sulfate [Duoneb 3 ml Ampul] 3 ml [facility] [id number] PRN #120 vial.neb 12/24/17 Multivitamin [Tab-A-Miguel A (Multiple Vitamin) Tablet] 1 tab PO DAILY #90 tablet 12/24/17 Nebulizer [Nebulizer Machine] 1 each MC ASDIR PRN #1 kit 12/24/17 Salmeterol Xinafoate [Serevent Diskus 50 Mcg/Dose 28 Dose/Diskus] 50 mcg IH Q12 #1 disk 12/24/17 Thiamine HCl [Thiamine 100 mg Tablet] 100 mg PO DAILY #90 tablet 12/24/17 Tiotropium Valentines [Spiriva Handihaler 18 mcg/dose (30 Dose)] 1 cap IH DAILY #30 capsule 12/24/17 Tiotropium Valentines [Spiriva Handihaler 5 Cap/Kit (18 Mcg/Cap)] 1 cap IH DAILY kit 12/24/17 Allergies/Adverse Reactions: No Known Allergies Allergy (Unverified 12/14/17 21:08) Review of Systems Constitutional: ABSENT: chills, fever(s) Eyes: ABSENT: visual disturbances, other - Ocular pain Ears: ABSENT: hearing changes, other - Ear pain Nose, Mouth, and Throat: ABSENT: mouth pain, sore throat Cardiovascular: PRESENT: dyspnea on exertion. ABSENT: chest pain, edema, orthropnea, palpitations Respiratory: PRESENT: as per HPI, cough, dyspnea, sputum. ABSENT: hemoptysis Gastrointestinal: ABSENT: abdominal pain, constipation, diarrhea, nausea, vomiting Genitourinary: ABSENT: dysuria, hematuria Musculoskeletal: ABSENT: back pain, joint swelling, muscle weakness Integumentary: ABSENT: pruritus, rash Neurological: ABSENT: confusion, convulsions, focal weakness, memory loss, syncope Psychiatric: ABSENT: anxiety, depression Endocrine: ABSENT: cold intolerance, heat intolerance Hematologic/Lymphatic: ABSENT: easy bleeding, easy bruising Physical Exam Vital Signs: Temp Pulse Resp BP Pulse Ox 97.7 F 25 H 170/72 H 94 03/26/19 21:24 03/26/19 22:02 03/26/19 22:02 03/26/19 22:02 Intake & Output 03/25/19 03/26/19 03/27/19 23:59 23:59 23:59 Intake Total 500 Balance 500 Weight 68.039 kg General appearance: PRESENT: no acute distress, cooperative, disheveled, hard of hearing Head exam: PRESENT: atraumatic, normocephalic Eye exam: ABSENT: conjunctival injection, nystagmus, scleral icterus Ear exam: PRESENT: normal external ear exam. ABSENT: bleeding, drainage Mouth exam: PRESENT: dry mucosa, neck supple Neck exam: ABSENT: thyromegaly, tracheal deviation Respiratory exam: PRESENT: decreased breath sounds - Mildly decreased breath sounds throughout all ledesma consistent with mild to moderate COPD, prolonged expiratory phas - Moderately prolonged expiratory phase in all ledesma, rhonchi - Coarse rhonchi most prominent in the left lower lung ledesma, symmetrical, tachypnea, wheezes - Moderate expiratory wheezes in all ledesma Cardiovascular exam: PRESENT: RRR, tachycardia. ABSENT: clicks, gallop, rubs Pulses: PRESENT: normal radial pulses, normal dorsalis pedis pul Vascular exam: ABSENT: normal capillary refill - Capillary refill delayed to slightly greater than 3 seconds, pallor GI/Abdominal exam: PRESENT: normal bowel sounds, soft Rectal exam: PRESENT: deferred Extremities exam: ABSENT: joint swelling, pedal edema Musculoskeletal exam: PRESENT: full ROM, normal inspection Neurological exam: PRESENT: alert, oriented to person, oriented to place, oriented to time, oriented to situation, CN II-XII grossly intact. ABSENT: motor sensory deficit Psychiatric exam: PRESENT: appropriate affect, normal mood Skin exam: PRESENT: dry, intact, warm. ABSENT: jaundice, rash, urticaria Results Laboratory Results: 03/26/19 21:30 03/26/19 21:30 03/26/19 03/26/19 03/26/19 21:30 21:30 21:30 WBC 20.4 H RBC 3.90 L Hgb 9.6 L Hct 30.4 L MCV 78 L MCH 24.6 L MCHC 31.5 L RDW 16.7 H Plt Count 701 H Seg Neutrophils % Not Reportable Lymphocytes % Not Reportable Monocytes % Not Reportable Eosinophils % Not Reportable Basophils % Not Reportable Absolute Neutrophils Not Reportable Absolute Lymphocytes Not Reportable Absolute Monocytes Not Reportable Absolute Eosinophils Not Reportable Absolute Basophils Not Reportable VBG pH VBG pCO2 VBG HCO3 VBG Base Excess Sodium 141.9 Potassium 4.2 Chloride 99 Carbon Dioxide 30 Anion Gap 13 BUN 32 H Creatinine 0.62 Est GFR ( Amer) > 60 Est GFR (Non-Af Amer) > 60 Glucose 124 H Lactic Acid 2.7 H Calcium 9.2 Total Bilirubin 3.7 H AST 92 H ALT 90 H Alkaline Phosphatase 551 H Total Protein 6.1 L Albumin 2.7 L Urine Color Urine Appearance Urine pH Ur Specific [place] Urine Protein Urine Glucose (UA) Urine Ketones Urine Blood Urine Nitrite Ur Leukocyte Esterase Urine WBC (Auto) Urine RBC (Auto) 03/26/19 03/26/19 21:30 22:10 WBC RBC Hgb Hct MCV MCH MCHC RDW Plt Count Seg Neutrophils % Lymphocytes % Monocytes % Eosinophils % Basophils % Absolute Neutrophils Absolute Lymphocytes Absolute Monocytes Absolute Eosinophils Absolute Basophils VBG pH 7.41 VBG pCO2 52.8 VBG HCO3 32.6 H VBG Base Excess 7.0 Sodium Potassium Chloride Carbon Dioxide Anion Gap BUN Creatinine Est GFR ( Amer) Est GFR (Non-Af Amer) Glucose Lactic Acid Calcium Total Bilirubin AST ALT Alkaline Phosphatase Total Protein Albumin Urine Color MAHESH Urine Appearance SLIGHTLY-CLOUDY Urine pH 5.0 Ur Specific [place] 1.023 Urine Protein NEGATIVE Urine Glucose (UA) NEGATIVE Urine Ketones TRACE H Urine Blood SMALL H Urine Nitrite NEGATIVE Ur Leukocyte Esterase NEGATIVE Urine WBC (Auto) 2 Urine RBC (Auto) 1 03/26/19 03/26/19 21:30 21:30 Creatine Kinase 556 H Troponin I 0.062 Impressions: Shoulder X-Ray 03/26/19 21:05 IMPRESSION: 1. No acute findings. Cervical Spine CT 03/26/19 21:47 IMPRESSION: 1. No acute intracranial hemorrhage. 2. No acute fracture of the cervical spine. Chest X-Ray 03/26/19 21:47 IMPRESSION: 1. Asymmetric left perihilar edema with left hilar prominence, suggesting pneumonia. Cannot exclude a left hilar mass. Head CT 03/26/19 21:47 IMPRESSION: 1. No acute intracranial hemorrhage. 2. No acute fracture of the cervical spine. Thoracic Spine CT 03/26/19 21:47 IMPRESSION: No acute compression fracture of the thoracic spine. Abdomen/Pelvis CT 03/26/19 22:31 IMPRESSION: 1. Hepatic steatosis. Correlate with lab values. 2. Groundglass opacity and consolidation in the left lung base. Consider chest CT scan for complete evaluation. 3. Small pericardial effusion. 4. 11.0 mm solid pulmonary nodule. Consider a non-contrast Chest CT at 3 months, a PET/CT, or tissue sampling. Reference: Radiology. 2017; 284(1):228-43. Assessment and Plan - Diagnosis (1) SIRS (systemic inflammatory response syndrome) Is this a current diagnosis for this admission?: Yes Plan: Patient meets several criteria for SIRS syndrome. Serum lactic acids will be repeated every 4 hours along with hydration and patient will be assessed on a regular basis with vital signs and clinical reassessment. Daily laboratory work will be obtained. If further indications point towards sepsis a sepsis protocol will be undertaken. At the present time the diagnosis of sepsis is less than likely and therefore he will be treated as a community-acquired pneumonia with underlying COPD. (2) Community acquired pneumonia of left lower lobe of lung Is this a current diagnosis for this admission?: Yes Plan: Patient will be treated with IV Rocephin and IV Zithromax initially for the treatment of his left lower lobe pneumonia. Daily CBC, metabolic profile and magnesium level be obtained to follow his therapeutic course. Further pulmonary imaging will be obtained as appropriate. (3) COPD exacerbation Is this a current diagnosis for this admission?: Yes Plan: Patient's acute exacerbation of COPD will be treated with nebulized Xopenex, Pulmicort and Atrovent. He will also receive IV Solu-Medrol and oxygen supplementation as needed. Daily CBC and metabolic profile with a magnesium level be obtained as part of following his disease and treatment process. (4) Leukocytosis Qualifiers: Leukocytosis type: unspecified Qualified Code(s): D72.829 - Elevated white blood cell count, unspecified Is this a current diagnosis for this admission?: Yes Plan: Patient's CBC will be followed on a daily basis throughout his hospital course. (5) Microcytic hypochromic anemia Is this a current diagnosis for this admission?: Yes Plan: Patient will be continued on his current therapy. Daily CBC will be used to monitor any changes in his anemic status. (6) Elevated LFTs Is this a current diagnosis for this admission?: Yes Plan: Patient is noted to have mildly elevated LFTs and hepatic steatosis on his CT scan. He will be monitored with a daily hepatic panel evaluation. - Time Time Spent with patient: 25-34 minutes Medications reviewed and adjusted accordingly: Yes Anticipated discharge: Home - Inpatient Certification Based on my medical assessment, after consideration of the patient's comorbidities, presenting symptoms, or acuity I expect that the services needed warrant INPATIENT care.: Yes I certify that my determination is in accordance with my understanding of Medicare's requirements for reasonable and necessary INPATIENT services [42 CFR 412.3e].: Yes Medical Necessity: Significant Comorbidiites Make Outpatient Treatment Too Risky, Need Close Monitoring Due to Risk of Patient Decompensation, Need For IV Fluids, Need for Nebulizer Therapy and Monitoring of Response, Need for IV Antibiotics, Risk of Complication if Not Cared For in Hospital
[2019-03-27] MEDS: HEPARIN SOD (PORCINE) 5,000 UNIT/ML 1 ML SYRINGE SUBCUT SCH ×3 (05:04→21:23)
[2019-03-27] MEDS ORDERED: METHYLPREDNISOLONE INJ 40 MG/1 ML SDV IV SCH (09:00)
[2019-03-27] MEDS: LEVALBUTEROL HCL NEB 1.25 MG/3 ML AMPUL NEB SCH ×2 (09:18→16:27)
[2019-03-27] MEDS: ACETYLCYSTEINE 20% SOLN 800 MG/4 ML VIAL.NEB NEB SCH ×2 (09:19→20:18)
[2019-03-27] MEDS: BUDESONIDE NEB 0.5 MG/2 ML AMPUL NEB SCH ×2 (09:19→20:19)
[2019-03-27] MEDS: IPRATROPIUM BROMIDE 0.02% NEB 0.5 MG/2.5 ML AMPUL NEB SCH ×2 (09:19→16:27)
[2019-03-27] MEDS: DOCUSATE SODIUM 100 MG CAPSULE PO SCH ×2 (09:49→18:48)
[2019-03-27] MEDS: FAMOTIDINE 20 MG TABLET PO SCH ×2 (09:49→21:23)
[2019-03-27] MEDS ORDERED: AZITHROMYCIN INJ 500 MG VIAL IV SCH (10:00)
--- NOTE | 2019-03-27 17:45 | EKG REPORT ---
SEVERITY:- OTHERWISE NORMAL ECG - SINUS TACHYCARDIA : Confirmed by: Maddy Ley MD 27-Mar-2019 17:44:38
[2019-03-27] MEDS: AZITHROMYCIN 500 MG in DEXTROSE 5%-WATER 250 ML IV SCH (18:48)
[2019-03-27] MEDS: LEVALBUTEROL HCL NEB 0.63 MG/3 ML AMPUL NEB PRN (20:19)
[2019-03-27] MEDS: METHYLPREDNISOLONE INJ 40 MG/1 ML SDV IV SCH (21:24)
[2019-03-27] MEDS ORDERED: CEFTRIAXONE 1 GM/D5W RTU 1 GM/50 ML RTUPB IV SCH (22:00)
[2019-03-27] MEDS ORDERED: CEFTRIAXONE SODIUM 1,000 MG in DEXTROSE 5%-WATER 50 ML IV SCH (22:00)
[2019-03-28] MEDS: IPRATROPIUM BROMIDE 0.02% NEB 0.5 MG/2.5 ML AMPUL NEB SCH ×3 (00:34→16:53)
[2019-03-28] MEDS: LEVALBUTEROL HCL NEB 1.25 MG/3 ML AMPUL NEB SCH ×3 (00:34→16:53)
[2019-03-28] MEDS: TEMAZEPAM 15 MG CAPSULE PO PRN (04:25)
[2019-03-28] MEDS: HEPARIN SOD (PORCINE) 5,000 UNIT/ML 1 ML SYRINGE SUBCUT SCH ×3 (06:00→21:15)
[2019-03-28 07:39] LABS: ABSOLUTE LYMPHOCYTES (AUTO) 0.9 10^3/uL (0.5-4.7); ABSOLUTE MONOCYTES (AUTO) 0.9 10^3/uL (0.1-1.4); ABSOLUTE NEUT (AUTO) 16.2 10^3/uL (1.7-8.2); BASOPHILS % (AUTO) 0.2 % (0-2); HEMOGLOBIN 8.1 g/dL (13.5-17.0); LYMPHOCYTES % (AUTO) 5.2 % (13-45); MEAN CORPUSCULAR HEMOGLOBIN 24.9 pg (27.0-33.4); MEAN CORPUSCULAR HGB CONC 32.2 g/dL (32.0-36.0); MEAN CORPUSCULAR VOLUME 77 fl (80-97); MONOCYTES % (AUTO) 5.1 % (3-13); PLATELET COUNT 568 10^3/uL (150-450); RED BLOOD COUNT 3.24 10^6/uL (4.35-5.55); RED CELL DISTRIBUTION WIDTH 16.6 % (11.5-14.0); SEGMENTED NEUTROPHILS % (AUTO) 89.5 % (42-78); TOTAL CELLS COUNTED % (AUTO) 100 %; VENOUS BLOOD BASE EXCESS 5.6 mmol/L; VENOUS BLOOD HCO3 30.8 mmol/L (20-32); VENOUS BLOOD PCO2 48.4 mmHg (35-63); VENOUS BLOOD PH 7.42 (7.30-7.42); WHITE BLOOD COUNT 18.1 10^3/uL (4.0-10.5)
[2019-03-28 08:03] LABS: ALANINE AMINOTRANSFERASE 80 U/L (21-72); ALBUMIN 2.2 g/dL (3.5-5.0); ALKALINE PHOSPHATASE 406 U/L (38-126); ANION GAP 10 (5-19); ASPARTATE AMINO TRANSFERASE 89 U/L (17-59); BILIRUBIN,DIRECT 1.7 mg/dL (0.0-0.4); BILIRUBIN,TOTAL 2.1 mg/dL (0.2-1.3); BLOOD UREA NITROGEN 24 mg/dL (7-20); CALCIUM 8.6 mg/dL (8.4-10.2); CARBON DIOXIDE 28 mmol/L (22-30); CHLORIDE 105 mmol/L (98-107); CREATINE KINASE 208 U/L (55-170); GLUCOSE 151 mg/dL (75-110); POTASSIUM 3.6 mmol/L (3.6-5.0); SODIUM 142.7 mmol/L (137-145); TOTAL PROTEIN 4.9 g/dL (6.3-8.2)
[2019-03-28] MEDS: ACETYLCYSTEINE 20% SOLN 800 MG/4 ML VIAL.NEB NEB SCH (08:04)
[2019-03-28] MEDS: BUDESONIDE NEB 0.5 MG/2 ML AMPUL NEB SCH ×2 (08:04→20:08)
[2019-03-28 08:20] LABS: FREE T3 3.03 pg/mL (2.77-5.27)
[2019-03-28 08:34] LABS: THYROID STIMULATING HORMONE 0.34 uIU/mL (0.47-4.68)
[2019-03-28 08:43] LABS: FREE T4 (FREE THYROXINE) 2.35 ng/dL (0.78-2.19)
[2019-03-28] MEDS: FAMOTIDINE 20 MG TABLET PO SCH ×2 (09:37→21:15)
[2019-03-28] MEDS: METHYLPREDNISOLONE INJ 40 MG/1 ML SDV IV SCH ×2 (09:37→21:15)
[2019-03-28] MEDS: DOCUSATE SODIUM 100 MG CAPSULE PO SCH ×2 (09:37→18:46)
--- NOTE | 2019-03-28 16:43 | PDOC PROGRESS REPORT ---
Subjective Progress Note for:: 03/28/19 Subjective:: This is a 73 yr old male with a PMH of HTN and COPD who presented with productive cough and SOB. He was found to have left sided pneumonia and lactic acidosis on admission. No acute event overnight. However, this instructor flying. He had waxing and waning episodes of confusion per RN and patient reportedly was asking where he is. Also had an episode where he expressed he needs "a box to poop". On encounter, he was already redirected and pacified. He is oriented to person and knows he is in a hospital. Denies chest pain or SOB. Reason For Visit: COMMUNITY ACQUIRED PNEUMONIA Physical Exam Vital Signs: Temp Pulse Resp BP Pulse Ox 97.2 F 117 H 18 104/76 100 03/28/19 08:27 03/28/19 08:27 03/28/19 08:27 03/28/19 08:27 03/28/19 08:27 Intake & Output 03/27/19 03/28/19 03/29/19 06:59 06:59 06:59 Intake Total 2500 2135 Output Total 75 325 Balance 2425 1810 Weight 150 lb General appearance: PRESENT: no acute distress, well-developed, well-nourished Head exam: PRESENT: atraumatic, normocephalic Eye exam: PRESENT: conjunctiva pink, EOMI, PERRLA. ABSENT: scleral icterus Ear exam: PRESENT: normal external ear exam Mouth exam: PRESENT: moist, tongue midline Neck exam: ABSENT: carotid bruit, JVD, lymphadenopathy, thyromegaly Respiratory exam: PRESENT: clear to auscultation sanjana. ABSENT: rales, rhonchi, wheezes Cardiovascular exam: PRESENT: RRR. ABSENT: diastolic murmur, rubs, systolic murmur Vascular exam: PRESENT: normal capillary refill GI/Abdominal exam: PRESENT: normal bowel sounds, soft. ABSENT: distended, guarding, mass, organolmegaly, rebound, tenderness Rectal exam: PRESENT: deferred Neurological exam: PRESENT: alert, awake, oriented to person, oriented to place, CN II-XII grossly intact. ABSENT: motor sensory deficit Results Laboratory Results: 03/28/19 06:57 03/28/19 06:57 03/27/19 03/27/19 03/28/19 19:30 20:30 06:57 WBC 18.1 H RBC 3.24 L Hgb 8.1 L Hct 25.0 L MCV 77 L MCH 24.9 L MCHC 32.2 RDW 16.6 H Plt Count 568 H Seg Neutrophils % 89.5 H Lymphocytes % 5.2 L Monocytes % 5.1 Eosinophils % 0.0 Basophils % 0.2 Absolute Neutrophils 16.2 H Absolute Lymphocytes 0.9 Absolute Monocytes 0.9 Absolute Eosinophils 0.0 Absolute Basophils 0.0 VBG pH VBG pCO2 VBG HCO3 VBG Base Excess Sodium Potassium Chloride Carbon Dioxide Anion Gap BUN Creatinine Est GFR ( Amer) Est GFR (Non-Af Amer) Glucose Lactic Acid 2.9 H Calcium Magnesium Total Bilirubin AST ALT Alkaline Phosphatase Total Protein Albumin TSH Free T4 Free T3 pg/mL Stool Occult Blood NEGATIVE 03/28/19 03/28/19 03/28/19 06:57 06:57 06:57 WBC RBC Hgb Hct MCV MCH MCHC RDW Plt Count Seg Neutrophils % Lymphocytes % Monocytes % Eosinophils % Basophils % Absolute Neutrophils Absolute Lymphocytes Absolute Monocytes Absolute Eosinophils Absolute Basophils VBG pH 7.42 VBG pCO2 48.4 VBG HCO3 30.8 VBG Base Excess 5.6 Sodium 142.7 Potassium 3.6 Chloride 105 Carbon Dioxide 28 Anion Gap 10 BUN 24 H Creatinine 0.54 Est GFR ( Amer) > 60 Est GFR (Non-Af Amer) > 60 Glucose 151 H Lactic Acid Calcium 8.6 Magnesium 2.3 Total Bilirubin 2.1 H AST 89 H ALT 80 H Alkaline Phosphatase 406 H Total Protein 4.9 L Albumin 2.2 L TSH 0.34 L Free T4 2.35 H Free T3 pg/mL 3.03 Stool Occult Blood 03/28/19 06:57 WBC RBC Hgb Hct MCV MCH MCHC RDW Plt Count Seg Neutrophils % Lymphocytes % Monocytes % Eosinophils % Basophils % Absolute Neutrophils Absolute Lymphocytes Absolute Monocytes Absolute Eosinophils Absolute Basophils VBG pH VBG pCO2 VBG HCO3 VBG Base Excess Sodium Cancelled Potassium Cancelled Chloride Cancelled Carbon Dioxide Cancelled Anion Gap Cancelled BUN Cancelled Creatinine Cancelled Est GFR ( Amer) Cancelled Est GFR (Non-Af Amer) Cancelled Glucose Cancelled Lactic Acid Calcium Cancelled Magnesium Total Bilirubin Cancelled AST Cancelled ALT Cancelled Alkaline Phosphatase Cancelled Total Protein Cancelled Albumin Cancelled TSH Free T4 Free T3 pg/mL Stool Occult Blood 03/26/19 22:10 Clean Catch Midstream Urine Culture - Final Mixed Urogenital Mckayla 03/26/19 03/26/19 03/28/19 21:30 21:30 06:57 Creatine Kinase 556 H 208 H Troponin I 0.062 Impressions: Shoulder X-Ray 03/26/19 21:05 IMPRESSION: 1. No acute findings. Cervical Spine CT 03/26/19 21:47 IMPRESSION: 1. No acute intracranial hemorrhage. 2. No acute fracture of the cervical spine. Chest X-Ray 03/26/19 21:47 IMPRESSION: 1. Asymmetric left perihilar edema with left hilar prominence, suggesting pneumonia. Cannot exclude a left hilar mass. Head CT 03/26/19 21:47 IMPRESSION: 1. No acute intracranial hemorrhage. 2. No acute fracture of the cervical spine. Thoracic Spine CT 03/26/19 21:47 IMPRESSION: No acute compression fracture of the thoracic spine. Abdomen/Pelvis CT 03/26/19 22:31 IMPRESSION: 1. Hepatic steatosis. Correlate with lab values. 2. Groundglass opacity and consolidation in the left lung base. Consider chest CT scan for complete evaluation. 3. Small pericardial effusion. 4. 11.0 mm solid pulmonary nodule. Consider a non-contrast Chest CT at 3 months, a PET/CT, or tissue sampling. Reference: Radiology. 2017; 284(1):228-43. Assessment and Plan - Diagnosis (1) Community acquired pneumonia of left lower lobe of lung Is this a current diagnosis for this admission?: Yes Plan: Continue Rocephin and azithromycin. (2) Acute delirium Is this a current diagnosis for this admission?: Yes Plan: confusion is waxing and waning and likely is acute delirium related to acute infection and hospitalization. Patient is easily redirected and pacified by sitter. (3) Elevated LFTs Is this a current diagnosis for this admission?: Yes Plan: Patient is noted to have mildly elevated LFTs and hepatic steatosis on his CT scan. Liver enzymes continue to trend down. Hepatitis panel pending. - Time Time Spent with patient: 15-24 minutes
[2019-03-28] MEDS: AZITHROMYCIN 500 MG in DEXTROSE 5%-WATER 250 ML IV SCH (18:49)
--- NOTE | 2019-03-28 19:03 | RADIOLOGY REPORT (SQ) ---
EXAM DESCRIPTION: CT CHEST WITHOUT COMPLETED DATE/TIME: 03/28/2019 6:39 pm REASON FOR STUDY: ?left hilar mass, reassess infiltrate COMPARISON: CT abdomen pelvis 03/26/2019 AP chest 03/26/2019 TECHNIQUE: CT scan performed of the chest without intravenous contrast. Images reviewed with lung, soft tissue and bone windows. Reconstructed coronal and sagittal MPR images reviewed. All images st ored on PACS. All CT scanners at this facility use dose modulation, iterative reconstruction, and/or weight based d osing when appropriate to reduce radiation dose to as low as reasonably achievable (ALARA). [facility]: Dose Right [facility]: CareDose [facility]: Dose Right [facility]: Teradose 4D [facility]: Smart Cubicl RADIATION DOSE: CT Rad equipment meets quality standard of care and radiation dose reduction techniq ues were employed. CTDIvol: 8.8 - 12.6 mGy. DLP: 972 mGy-cm. mGy. LIMITATIONS: No technical limitations. FINDINGS: LUNGS AND PLEURA: The left mainstem bronchus is occluded on coronal images 40 through 44. There is near complete collapse of the left lung with diffuse consolidation. There is a rim of marylou pheral pleural fluid. Findings are worrisome for left lung pneumonia small parapneumonic pleural eff usion. Pneumonia from endobronchial occlusive mass is suspected. On the right side, calcific pleural plaques are present. No focal infiltrates. No pulmonary nodules . Trace right pleural effusion. HILAR AND MEDIASTINAL STRUCTURES: There are multiple abnormal enlarged lymph nodes in the prevascular space and left AP window as follows: 1.7 x 1.2 cm axial image 25, 2 x 1.4 cm axial image 27, 2 x 1.3 cm axial image 29. HEART AND VASCULAR STRUCTURES: No aneurysm. No pericardial effusion. UPPER ABDOMEN: Small hiatal hernia THYROID AND OTHER SOFT TISSUES: No masses. No adenopathy. BONES: No significant finding. HARDWARE: None in the chest. OTHER: No other significant findings. IMPRESSION: Since the chest film on 03/26/2019, patient has collapse the left lung. There is now diff use left lung pneumonia with parapneumonic pleural effusion. Findings are worrisome for postobstruct donta pneumonia from endobronchial tumor or hilar mass. Mediastinal adenopathy TECHNICAL DOCUMENTATION: JOB ID: [id number] Quality ID # [id number]: Final reports with documentation of one or more dose reduction techniques (e.g., Au tomated exposure control, adjustment of the mA and/or kV according to patient size, use of iterative reconstruction technique) 2010 [employer]- All Rights Reserved Reading location - IP/workstation name: [email or web address]
[2019-03-28] MEDS ORDERED: VANCOMYCIN HCL 0 MG in DEXTROSE 5%-WATER 250 ML IV NR (19:45)
[2019-03-28] MEDS: LEVALBUTEROL HCL NEB 0.63 MG/3 ML AMPUL NEB PRN (20:08)
[2019-03-28] MEDS: NORMAL SALINE 1000 ML 1,000 ML IV PRN (20:09)
[2019-03-28] MEDS: ACETYLCYSTEINE 10% NEB 400 MG/4 ML VIAL NEB SCH (20:09)
[2019-03-28] MEDS: VANCOMYCIN HCL 750 MG in DEXTROSE 5%-WATER 250 ML IV SCH (22:04)
[2019-03-28] MEDS: PIPERACILLIN SODIUM/TAZOBACTAM 3.375 GM in NORMAL SALINE 100 ML IV SCH (23:49)
[2019-03-29] MEDS: LEVALBUTEROL HCL NEB 1.25 MG/3 ML AMPUL NEB SCH ×4 (00:57→21:07)
[2019-03-29] MEDS: IPRATROPIUM BROMIDE 0.02% NEB 0.5 MG/2.5 ML AMPUL NEB SCH ×4 (00:57→21:07)
[2019-03-29] MEDS: ACETYLCYSTEINE 10% NEB 400 MG/4 ML VIAL NEB SCH ×4 (02:37→21:07)
[2019-03-29] MEDS: LEVALBUTEROL HCL NEB 0.63 MG/3 ML AMPUL NEB PRN (02:37)
[2019-03-29] MEDS: PIPERACILLIN SODIUM/TAZOBACTAM 3.375 GM in NORMAL SALINE 100 ML IV SCH ×4 (05:08→23:25)
[2019-03-29] MEDS: HEPARIN SOD (PORCINE) 5,000 UNIT/ML 1 ML SYRINGE SUBCUT SCH ×3 (05:08→21:09)
[2019-03-29] MEDS: VANCOMYCIN HCL 750 MG in DEXTROSE 5%-WATER 250 ML IV SCH ×3 (05:08→21:09)
[2019-03-29 07:36] LABS: ABSOLUTE BASOPHILS # (AUTO) 0.1 10^3/uL (0.0-0.2); ABSOLUTE LYMPHOCYTES (AUTO) 1.2 10^3/uL (0.5-4.7); ABSOLUTE NEUT (AUTO) 14.6 10^3/uL (1.7-8.2); BASOPHILS % (AUTO) 0.4 % (0-2); EOSINOPHILS % (AUTO) 0.1 % (0-6); HEMATOCRIT 28.6 % (37.9-51.0); MEAN CORPUSCULAR HEMOGLOBIN 24.3 pg (27.0-33.4); MEAN CORPUSCULAR HGB CONC 31.5 g/dL (32.0-36.0); MEAN CORPUSCULAR VOLUME 77 fl (80-97); PLATELET COUNT 494 10^3/uL (150-450); RED BLOOD COUNT 3.71 10^6/uL (4.35-5.55); RED CELL DISTRIBUTION WIDTH 16.5 % (11.5-14.0); SEGMENTED NEUTROPHILS % (AUTO) 86.5 % (42-78); TOTAL CELLS COUNTED % (AUTO) 100 %; WHITE BLOOD COUNT 16.9 10^3/uL (4.0-10.5)
[2019-03-29 07:58] LABS: ALANINE AMINOTRANSFERASE 187 U/L (21-72); ALBUMIN 2.4 g/dL (3.5-5.0); ALKALINE PHOSPHATASE 655 U/L (38-126); ASPARTATE AMINO TRANSFERASE 240 U/L (17-59); BILIRUBIN,DIRECT 1.8 mg/dL (0.0-0.4); BILIRUBIN,TOTAL 2.1 mg/dL (0.2-1.3); BLOOD UREA NITROGEN 22 mg/dL (7-20); CALCIUM 8.5 mg/dL (8.4-10.2); CARBON DIOXIDE 29 mmol/L (22-30); CREATINE KINASE 102 U/L (55-170); GLUCOSE 127 mg/dL (75-110); POTASSIUM 3.9 mmol/L (3.6-5.0); SODIUM 139.5 mmol/L (137-145); TOTAL PROTEIN 5.4 g/dL (6.3-8.2)
[2019-03-29 08:00] LABS: ANION GAP 10 (5-19); CHLORIDE 101 mmol/L (98-107)
[2019-03-29] MEDS: BUDESONIDE NEB 0.5 MG/2 ML AMPUL NEB SCH ×2 (08:29→21:07)
[2019-03-29] MEDS ORDERED: ONDANSETRON HCL INJ/PF 4 MG/2 ML SDV IV PRN (08:30)
[2019-03-29] MEDS: FAMOTIDINE 20 MG TABLET PO SCH ×2 (11:19→21:08)
[2019-03-29] MEDS: DOCUSATE SODIUM 100 MG CAPSULE PO SCH ×2 (11:19→18:28)
[2019-03-29] MEDS: METHYLPREDNISOLONE INJ 40 MG/1 ML SDV IV SCH ×2 (11:19→21:08)
[2019-03-29 11:38] LABS: HEPATITIS A AB IGM Negative (Negative); HEPATITIS B CORE AB IGM Negative (Negative); HEPATITS B SURFACE ANTIGEN Negative (Negative)
[2019-03-29 13:24] LABS: HEPATITIS C VIRUS ANTIBODY <0.1 s/co ratio (0.0-0.9)
[2019-03-29] MEDS: NORMAL SALINE 1000 ML 1,000 ML IV PRN (15:37)
--- NOTE | 2019-03-29 15:45 | PDOC CONSULTATION ---
Consultation Consult Date: 03/29/19 Attending physician:: NEVAEH STEEN Consult reason:: Endobronchial mass History of Present Illness Admission Date/PCP: 03/27/19 00:41 History of Present Illness: DANK CLINE is a 73 year old male found on his front porch and brought via EMS to the ER. Upon arrival in the room the patient is on BiPAP and unable to communicate coherently, majority of history obtained from chart. Chest CT shows there is a diffuse left lung pneumonia and a parapneumonic pleural effusion findings are worrisome for postobstructive pneumonia from endobronchial tumor or hilar mass metastatic mediastinal adenopathy. Discussed power of securities attorney with the nurse in order to perform bronchoscopy in house will need to get informed consent. Past Medical History Cardiac Medical History: Reports: Hypertension Denies: Coronary Artery Disease Pulmonary Medical History: Reports: Bronchitis, Chronic Obstructive Pulmonary Disease (COPD), Pneumonia Denies: Asthma EENT Medical History: Denies: Cataracts, Ears - Hearing aids Neurological Medical History: Denies: Hemorrhagic CVA, Ischemic CVA, Seizures Endocrine Medical History: Denies: Diabetes Mellitus Type 1, Diabetes Mellitus Type 2, Hyperthyroidism, Hypothyroidism Renal/ Medical History: Denies: Chronic Kidney Disease, Nephrolithiasis Malignancy Medical History: Reports: None GI Medical History: Denies: Cirrhosis, Hepatitis Musculoskeltal Medical History: Reports: Other - Muscle problem after he fell on the floor overnight in the past Denies: Arthritis, Gout Skin Medical History: Denies: Eczema, Psoriasis Psychiatric Medical History: Reports: Tobacco Dependency Denies: Alcohol Dependency, Depression, Substance Abuse Traumatic Medical History: Reports: None Hematology: Reports: Anemia Denies: Bleeding Tendencies Infectious Medical History: Reports: None Past Surgical History Past Surgical History: Reports: Appendectomy Social History Lives with: Alone Smoking Status: Never Smoker Number of Years Smokin Last Time Smoked: 2008 Frequency of Alcohol Use: None - Patient denies current/recent alcohol use, in the past has consumed 2 or 3 beers per day on a fairly regular basis. Hx Recreational Drug Use: No Drugs: None Hx Prescription Drug Abuse: No - Advance Directive Resuscitation Status: Full Code Family History Family History: CAD, DM, Hypertension. denies: Malignancy Parental Family History Reviewed: No Children Family History Reviewed: No Sibling(s) Family History Reviewed.: No Medication/Allergy Home Medications: Aspirin [Aspirin 81 mg Chewable Tablet] 81 mg PO DAILY 03/27/19 Allergies/Adverse Reactions: No Known Allergies Allergy (Unverified 12/14/17 21:08) Review of Systems Constitutional: ABSENT: chills, fever(s) Eyes: ABSENT: visual disturbances Ears: ABSENT: hearing changes Nose, Mouth, and Throat: ABSENT: mouth pain, sore throat Cardiovascular: PRESENT: dyspnea on exertion. ABSENT: chest pain, edema, orthropnea Respiratory: PRESENT: cough, dyspnea. ABSENT: hemoptysis Gastrointestinal: ABSENT: abdominal pain, diarrhea, dysphagia Genitourinary: ABSENT: dysuria, hematuria Musculoskeletal: ABSENT: deformity, joint swelling Integumentary: ABSENT: pruritus, rash Neurological: ABSENT: memory loss, restless legs, vertigo Psychiatric: ABSENT: anxiety, homidical ideation, suicidal ideation Endocrine: ABSENT: cold intolerance, flushing, heat intolerance Hematologic/Lymphatic: ABSENT: easy bruising, lymphadenopathy Allergic/Immunologic: ABSENT: seasonal rhinorrhea Physical Exam Vital Signs: Temp Pulse Resp BP Pulse Ox 97.7 F 130 H 32 H 137/88 H 94 03/29/19 08:17 03/29/19 08:30 03/29/19 08:56 03/29/19 08:17 03/29/19 08:56 Intake & Output 03/28/19 03/29/19 03/30/19 06:59 06:59 06:59 Intake Total 2135 2375 Output Total 325 235 Balance 1810 2140 General appearance: PRESENT: disheveled, hard of hearing Head exam: PRESENT: atraumatic, normocephalic Eye exam: PRESENT: conjunctiva pink, EOMI. ABSENT: periorbital swelling Ear exam: PRESENT: normal external ear exam. ABSENT: TM's normal bilaterally Mouth exam: PRESENT: moist, neck supple, tongue midline Neck exam: PRESENT: full ROM. ABSENT: carotid bruit, JVD, lymphadenopathy Respiratory exam: PRESENT: decreased breath sounds, prolonged expiratory phas, wheezes Cardiovascular exam: PRESENT: RRR, tachycardia. ABSENT: clicks, gallop, rubs, systolic murmur Pulses: PRESENT: normal radial pulses, normal dorsalis pedis pul Vascular exam: PRESENT: normal capillary refill GI/Abdominal exam: PRESENT: normal bowel sounds, soft. ABSENT: distended, firm Rectal exam: PRESENT: deferred Gentrourinary exam: ABSENT: lesions, urethral discharge Extremities exam: PRESENT: full ROM. ABSENT: clubbing, joint swelling Musculoskeletal exam: PRESENT: full ROM Neurological exam: PRESENT: oriented to place, oriented to situation Psychiatric exam: PRESENT: normal mood. ABSENT: homicidal ideation, suicidal ideation Focused psych exam: ABSENT: flight of ideas, restlessness Skin exam: PRESENT: dry, intact, warm. ABSENT: jaundice, rash, urticaria Results Laboratory Results: 03/29/19 06:50 03/29/19 06:50 03/28/19 03/29/19 03/29/19 16:51 06:50 06:50 WBC 16.9 H RBC 3.71 L Hgb 9.0 L Hct 28.6 L MCV 77 L MCH 24.3 L MCHC 31.5 L RDW 16.5 H Plt Count 494 H Seg Neutrophils % 86.5 H Lymphocytes % 7.0 L Monocytes % 6.0 Eosinophils % 0.1 Basophils % 0.4 Absolute Neutrophils 14.6 H Absolute Lymphocytes 1.2 Absolute Monocytes 1.0 Absolute Eosinophils 0.0 Absolute Basophils 0.1 Sodium 139.5 Potassium 3.9 Chloride 101 Carbon Dioxide 29 Anion Gap 10 BUN 22 H Creatinine 0.59 Est GFR ( Amer) > 60 Est GFR (Non-Af Amer) > 60 Glucose 127 H Lactic Acid 3.3 H Calcium 8.5 Magnesium 2.1 Total Bilirubin 2.1 H AST 240 H ALT 187 H Alkaline Phosphatase 655 H Total Protein 5.4 L Albumin 2.4 L 03/26/19 22:10 Clean Catch Midstream Urine Culture - Final Mixed Urogenital Mckayla 03/26/19 03/26/19 03/28/19 21:30 21:30 06:57 Creatine Kinase 556 H 208 H Troponin I 0.062 03/29/19 06:50 Creatine Kinase 102 Troponin I Impressions: Shoulder X-Ray 03/26/19 21:05 IMPRESSION: 1. No acute findings. Cervical Spine CT 03/26/19 21:47 IMPRESSION: 1. No acute intracranial hemorrhage. 2. No acute fracture of the cervical spine. Chest X-Ray 03/26/19 21:47 IMPRESSION: 1. Asymmetric left perihilar edema with left hilar prominence, suggesting pneumonia. Cannot exclude a left hilar mass. Head CT 03/26/19 21:47 IMPRESSION: 1. No acute intracranial hemorrhage. 2. No acute fracture of the cervical spine. Thoracic Spine CT 03/26/19 21:47 IMPRESSION: No acute compression fracture of the thoracic spine. Abdomen/Pelvis CT 03/26/19 22:31 IMPRESSION: 1. Hepatic steatosis. Correlate with lab values. 2. Groundglass opacity and consolidation in the left lung base. Consider chest CT scan for complete evaluation. 3. Small pericardial effusion. 4. 11.0 mm solid pulmonary nodule. Consider a non-contrast Chest CT at 3 months, a PET/CT, or tissue sampling. Reference: Radiology. 2017; 284(1):228-43. Chest CT 03/28/19 00:00 IMPRESSION: Since the chest film on 03/26/2019, patient has collapse the left lung. There is now diffuse left lung pneumonia with parapneumonic pleural effusion. Findings are worrisome for postobstructive pneumonia from endobron chial tumor or hilar mass. Mediastinal adenopathy Assessment & Plan - Diagnosis (1) Pneumonia Qualifiers: Pneumonia type: due to unspecified organism Laterality: left Lung location: lower lobe of lung Qualified Code(s): J18.1 - Lobar pneumonia, unspecified organism Plan: Continue current antibiotic regimen (2) COPD exacerbation Is this a current diagnosis for this admission?: Yes Plan: Continue to use supplemental oxygen, Inpatient Scribe Statement - . Entered by Blaire Zarate, acting as scribe for Dr. Skinner.
--- NOTE | 2019-03-29 16:06 | PDOC PROGRESS REPORT ---
Subjective Progress Note for:: 03/29/19 Subjective:: This is a 73 yr old male with a PMH of HTN and COPD who presented with productive cough and SOB. He was found to have left sided pneumonia and lactic acidosis on admission. 03/28: No acute event overnight. 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 He had waxing and waning episodes of confusion per RN and patient reportedly was asking where he is. Also had an episode where he expressed he needs "a box to poop". On encounter, he was already redirected and pacified. He is oriented to person and knows he is in a hospital. Denies chest pain or SOB. 03/29: Chest CT showed progression of pneumonia likely post-obstructive with a possible endobronchial tumor. This morning, patient is saturating well on BIPAP. He is oriented to person but says he is in [facility]. Consulted pulm onology. Attempts have been made to call his DPOA/ but she is unreachable at this time. He remains guarded given the progression of his pneumonia. Reason For Visit: COMMUNITY ACQUIRED PNEUMONIA Physical Exam Vital Signs: Temp Pulse Resp BP Pulse Ox 97.7 F 121 H 25 H 137/88 H 95 03/29/19 08:17 03/29/19 14:16 03/29/19 14:16 03/29/19 08:17 03/29/19 14:16 Intake & Output 03/28/19 03/29/19 03/30/19 06:59 06:59 06:59 Intake Total 2135 2375 1375 Output Total 325 235 Balance 1810 2140 1375 General appearance: PRESENT: no acute distress, well-developed Head exam: PRESENT: atraumatic, normocephalic Eye exam: PRESENT: conjunctiva pink, EOMI, PERRLA. ABSENT: scleral icterus Ear exam: PRESENT: normal external ear exam Mouth exam: PRESENT: moist, tongue midline Neck exam: ABSENT: carotid bruit, JVD, lymphadenopathy, thyromegaly Respiratory exam: PRESENT: rales, rhonchi. ABSENT: wheezes Cardiovascular exam: PRESENT: RRR. ABSENT: diastolic murmur, rubs, systolic murmur Pulses: PRESENT: normal dorsalis pedis pul GI/Abdominal exam: PRESENT: normal bowel sounds, soft. ABSENT: distended, guarding, mass, organolmegaly, rebound, tenderness Rectal exam: PRESENT: deferred Neurological exam: PRESENT: awake, oriented to person, CN II-XII grossly intact. ABSENT: motor sensory deficit Results Laboratory Results: 03/29/19 06:50 03/29/19 06:50 03/28/19 03/29/19 03/29/19 16:51 06:50 06:50 WBC 16.9 H RBC 3.71 L Hgb 9.0 L Hct 28.6 L MCV 77 L MCH 24.3 L MCHC 31.5 L RDW 16.5 H Plt Count 494 H Seg Neutrophils % 86.5 H Lymphocytes % 7.0 L Monocytes % 6.0 Eosinophils % 0.1 Basophils % 0.4 Absolute Neutrophils 14.6 H Absolute Lymphocytes 1.2 Absolute Monocytes 1.0 Absolute Eosinophils 0.0 Absolute Basophils 0.1 Sodium 139.5 Potassium 3.9 Chloride 101 Carbon Dioxide 29 Anion Gap 10 BUN 22 H Creatinine 0.59 Est GFR ( Amer) > 60 Est GFR (Non-Af Amer) > 60 Glucose 127 H Lactic Acid 3.3 H Calcium 8.5 Magnesium 2.1 Total Bilirubin 2.1 H AST 240 H ALT 187 H Alkaline Phosphatase 655 H Total Protein 5.4 L Albumin 2.4 L 03/26/19 03/26/19 03/28/19 21:30 21:30 06:57 Creatine Kinase 556 H 208 H Troponin I 0.062 03/29/19 06:50 Creatine Kinase 102 Troponin I Impressions: Shoulder X-Ray 03/26/19 21:05 IMPRESSION: 1. No acute findings. Cervical Spine CT 03/26/19 21:47 IMPRESSION: 1. No acute intracranial hemorrhage. 2. No acute fracture of the cervical spine. Chest X-Ray 03/26/19 21:47 IMPRESSION: 1. Asymmetric left perihilar edema with left hilar prominence, suggesting pneumonia. Cannot exclude a left hilar mass. Head CT 03/26/19 21:47 IMPRESSION: 1. No acute intracranial hemorrhage. 2. No acute fracture of the cervical spine. Thoracic Spine CT 03/26/19 21:47 IMPRESSION: No acute compression fracture of the thoracic spine. Abdomen/Pelvis CT 03/26/19 22:31 IMPRESSION: 1. Hepatic steatosis. Correlate with lab values. 2. Groundglass opacity and consolidation in the left lung base. Consider chest CT scan for complete evaluation. 3. Small pericardial effusion. 4. 11.0 mm solid pulmonary nodule. Consider a non-contrast Chest CT at 3 months, a PET/CT, or tissue sampling. Reference: Radiology. 2017; 284(1):228-43. Chest CT 03/28/19 00:00 IMPRESSION: Since the chest film on 03/26/2019, patient has collapse the left lung. There is now diffuse left lung pneumonia with parapneumonic pleural effusion. Findings are worrisome for postobstructive pneumonia from endobronchial tumor or hilar mass. Mediastinal adenopathy Assessment and Plan - Diagnosis (1) Pneumonia Is this a current diagnosis for this admission?: Yes Plan: Post-obstructive. Chest CT showed progression of pneumonia while on Rocephin and Azithromycin. Antibiotics were switched to vancomycin and Zosyn yesterday. Mucomyst was also added. Continue scheduled breathing treatments. Pulmonology has been consulted for bronchoscopy. (2) Acute delirium Is this a current diagnosis for this admission?: Yes Plan: Secondary to pneumonia. Patient is easily redirected and pacified by sitter. (3) Elevated LFTs Is this a current diagnosis for this admission?: Yes Plan: Patient is noted to have mildly elevated LFTs and hepatic steatosis on his CT scan. Hepatitis panel negative. Elevated liver enzymes are also concerning for possible metastatic disease in the setting of a newly diagnosed endobronchial mass. Will consult oncology for further recommendations. - Time Time Spent with patient: 25-34 minutes
--- NOTE | 2019-03-29 19:43 | EKG REPORT ---
SEVERITY:- BORDERLINE ECG - SINUS TACHYCARDIA PROBABLE LEFT ATRIAL ABNORMALITY : Confirmed by: Maddy Ley MD 29-Mar-2019 19:42:24
[2019-03-29] MEDS: METOPROLOL TARTRATE 25 MG TABLET PO SCH (21:08)
[2019-03-30] MEDS: LEVALBUTEROL HCL NEB 1.25 MG/3 ML AMPUL NEB SCH ×4 (02:13→20:17)
[2019-03-30] MEDS: ACETYLCYSTEINE 10% NEB 400 MG/4 ML VIAL NEB SCH ×4 (02:13→20:17)
[2019-03-30] MEDS: IPRATROPIUM BROMIDE 0.02% NEB 0.5 MG/2.5 ML AMPUL NEB SCH ×4 (02:13→20:17)
[2019-03-30] MEDS: PIPERACILLIN SODIUM/TAZOBACTAM 3.375 GM in NORMAL SALINE 100 ML IV SCH ×3 (05:15→18:56)
[2019-03-30] MEDS: VANCOMYCIN HCL 750 MG in DEXTROSE 5%-WATER 250 ML IV SCH ×3 (05:59→22:21)
[2019-03-30 06:12] LABS: ABSOLUTE BASOPHILS # (AUTO) 0.1 10^3/uL (0.0-0.2); ABSOLUTE LYMPHOCYTES (AUTO) 1.3 10^3/uL (0.5-4.7); ABSOLUTE MONOCYTES (AUTO) 0.9 10^3/uL (0.1-1.4); ABSOLUTE NEUT (AUTO) 16.9 10^3/uL (1.7-8.2); BASOPHILS % (AUTO) 0.6 % (0-2); EOSINOPHILS % (AUTO) 0.1 % (0-6); HEMATOCRIT 30.6 % (37.9-51.0); HEMOGLOBIN 9.7 g/dL (13.5-17.0); MEAN CORPUSCULAR HEMOGLOBIN 24.2 pg (27.0-33.4); MEAN CORPUSCULAR HGB CONC 31.7 g/dL (32.0-36.0); MEAN CORPUSCULAR VOLUME 76 fl (80-97); MONOCYTES % (AUTO) 4.5 % (3-13); RED CELL DISTRIBUTION WIDTH 16.9 % (11.5-14.0); SEGMENTED NEUTROPHILS % (AUTO) 87.8 % (42-78); TOTAL CELLS COUNTED % (AUTO) 100 %; WHITE BLOOD COUNT 19.2 10^3/uL (4.0-10.5)
[2019-03-30 06:17] LABS: ALANINE AMINOTRANSFERASE 172 U/L (21-72); ALBUMIN 2.6 g/dL (3.5-5.0); ALKALINE PHOSPHATASE 651 U/L (38-126); ANION GAP 10 (5-19); ASPARTATE AMINO TRANSFERASE 141 U/L (17-59); BILIRUBIN,DIRECT 1.8 mg/dL (0.0-0.4); BILIRUBIN,TOTAL 2.2 mg/dL (0.2-1.3); BLOOD UREA NITROGEN 19 mg/dL (7-20); CALCIUM 8.8 mg/dL (8.4-10.2); CARBON DIOXIDE 28 mmol/L (22-30); CHLORIDE 103 mmol/L (98-107); CREATINE KINASE 70 U/L (55-170); GLUCOSE 130 mg/dL (75-110); POTASSIUM 4.1 mmol/L (3.6-5.0); SODIUM 140.9 mmol/L (137-145); TOTAL PROTEIN 5.7 g/dL (6.3-8.2)
[2019-03-30 06:19] LABS: VANCOMYCIN,TROUGH 13.4 ug/mL (5.0-20.0)
[2019-03-30 06:46] LABS: PLATELET COUNT 103 10^3/uL (150-450)
[2019-03-30] MEDS: BUDESONIDE NEB 0.5 MG/2 ML AMPUL NEB SCH ×2 (08:40→20:17)
[2019-03-30] MEDS: DOCUSATE SODIUM 100 MG CAPSULE PO SCH ×2 (10:50→18:52)
[2019-03-30] MEDS: FAMOTIDINE 20 MG TABLET PO SCH ×2 (11:12→22:20)
[2019-03-30] MEDS: METHYLPREDNISOLONE INJ 40 MG/1 ML SDV IV SCH ×2 (11:12→22:20)
[2019-03-30] MEDS: METOPROLOL TARTRATE 25 MG TABLET PO SCH ×2 (11:12→22:20)
[2019-03-30] MEDS: HEPARIN SOD (PORCINE) 5,000 UNIT/ML 1 ML SYRINGE SUBCUT SCH ×2 (11:12→22:18)
[2019-03-30] MEDS: NORMAL SALINE 1000 ML 1,000 ML IV PRN (11:17)
--- NOTE | 2019-03-30 14:06 | PDOC CONSULTATION ---
Consultation Consult Date: 03/30/19 Provider Consulted: AMADOR BILLINGS Consult reason:: Hematology/Oncology consultation was requested for patient with new mediastinal lymphadenopathy and worsening pneumonia. History of Present Illness Admission Date/PCP: 03/27/19 00:41 History of Present Illness: DANK CLINE is a 73 year old male who according to medical records, presented to the emergency room with a several day history of cough and dyspnea. He admits that for the last several days he is experienced a harsh cough productive of purulent sputum and dyspnea especially on exertion. He relates that he has been feeling subjectively feverish and it seemed so hot inside his house last night (03/25/2019) that he decided to lay down on the porch to sleep. His neighbors had noticed that his house lights were still on all night and they had not seen him throughout the day on 03/26/2019 so they went to investigate in the evening and found the patient still sleeping on his porch. They summoned EMS assuming he had fallen and that he was injured. EMS reports that his living situation is very unsanitary with bugs and fleas throughout the home and a dog still lying on the floor in the home. Patient is a very poor historian but denies prior similar episodes and has not identified any other aggravating or ameliorating factors for his current cough and dyspnea. In the emergency room he was found to have pulmonary hyperinflation and perihilar edema/pneumonia on the left side with an elevated white count and tachycardia as well as tachypnea. His serum lactate was slightly elevated at 2.7. Having met SIRS criteria and the patient will be admitted to the hospital for further evaluation and treatment. Today, patient remains on BiPAP. He is awake, and trying to talk, but not ma connor sense most of the time. Nurses report that his confusion has improved since his oxygen levels have improved, but they did find him playing with his feces yesterday. There is no family available. CT scan is concerning for cancer. Past Medical History Cardiac Medical History: Reports: Hypertension Denies: Coronary Artery Disease Pulmonary Medical History: Reports: Bronchitis, Chronic Obstructive Pulmonary Disease (COPD), Pneumonia Denies: Asthma EENT Medical History: Denies: Cataracts, Ears - Hearing aids Neurological Medical History: Denies: Hemorrhagic CVA, Ischemic CVA, Seizures Endocrine Medical History: Denies: Diabetes Mellitus Type 1, Diabetes Mellitus Type 2, Hyperthyroidism, Hypothyroidism Renal/ Medical History: Denies: Chronic Kidney Disease, Nephrolithiasis Malignancy Medical History: Reports: None GI Medical History: Denies: Cirrhosis, Hepatitis Musculoskeltal Medical History: Reports: Other - Muscle problem after he fell on the floor overnight in the past Denies: Arthritis, Gout Skin Medical History: Denies: Eczema, Psoriasis Psychiatric Medical History: Reports: Tobacco Dependency Denies: Alcohol Dependency, Depression, Substance Abuse Traumatic Medical History: Reports: None Hematology: Reports: Anemia Denies: Bleeding Tendencies Infectious Medical History: Reports: None Past Surgical History Past Surgical History: Reports: Appendectomy Social History Lives with: Alone Smoking Status: Never Smoker Number of Years Smokin Last Time Smoked: 2008 Frequency of Alcohol Use: None - Patient denies current/recent alcohol use, in the past has consumed 2 or 3 beers per day on a fairly regular basis. Hx Recreational Drug Use: No Drugs: None Hx Prescription Drug Abuse: No - Advance Directive Resuscitation Status: Full Code Family History Family History: CAD, DM, Hypertension. denies: Malignancy Parental Family History Reviewed: No Children Family History Reviewed: No Sibling(s) Family History Reviewed.: No Medication/Allergy Home Medications: Aspirin [Aspirin 81 mg Chewable Tablet] 81 mg PO DAILY 03/27/19 Allergies/Adverse Reactions: No Known Allergies Allergy (Unverified 12/14/17 21:08) Review of Systems ROS unobtainable: Due to mental status Physical Exam Vital Signs: Temp Pulse Resp BP Pulse Ox 97.2 F 108 H 24 H 124/78 97 03/30/19 08:17 03/30/19 08:40 03/30/19 08:40 03/30/19 08:17 03/30/19 08:40 Intake & Output 03/29/19 03/30/19 03/31/19 06:59 06:59 06:59 Intake Total 2375 3411 250 Output Total 235 225 Balance 2140 3186 250 Weight 75.9 kg General appearance: PRESENT: no acute distress, well-developed, well-nourished Exam: 73 year old male. Head exam: PRESENT: normocephalic Eye exam: ABSENT: nystagmus Mouth exam: PRESENT: neck supple Neck exam: ABSENT: lymphadenopathy, tenderness Respiratory exam: PRESENT: other - Decreased breath sounds entire left lung. Cardiovascular exam: PRESENT: other - Heart sounds obscured. GI/Abdominal exam: PRESENT: soft. ABSENT: tenderness Extremities exam: PRESENT: +1 edema Neurological exam: PRESENT: alert, awake. ABSENT: oriented to place, oriented to time, oriented to situation Focused psych exam: ABSENT: restlessness Skin exam: PRESENT: normal color Results Laboratory Results: 03/30/19 05:45 03/30/19 05:45 03/30/19 03/30/19 05:45 05:45 WBC 19.2 H RBC 4.00 L Hgb 9.7 L Hct 30.6 L MCV 76 L MCH 24.2 L MCHC 31.7 L RDW 16.9 H Plt Count 103 L Seg Neutrophils % 87.8 H Lymphocytes % 7.0 L Monocytes % 4.5 Eosinophils % 0.1 Basophils % 0.6 Absolute Neutrophils 16.9 H Absolute Lymphocytes 1.3 Absolute Monocytes 0.9 Absolute Eosinophils 0.0 Absolute Basophils 0.1 Sodium 140.9 Potassium 4.1 Chloride 103 Carbon Dioxide 28 Anion Gap 10 BUN 19 Creatinine 0.61 Est GFR ( Amer) > 60 Est GFR (Non-Af Amer) > 60 Glucose 130 H Calcium 8.8 Magnesium 2.2 Total Bilirubin 2.2 H AST 141 H ALT 172 H Alkaline Phosphatase 651 H Total Protein 5.7 L Albumin 2.6 L 03/26/19 03/26/19 03/28/19 21:30 21:30 06:57 Creatine Kinase 556 H 208 H Troponin I 0.062 03/29/19 03/30/19 06:50 05:45 Creatine Kinase 102 70 Troponin I Impressions: Shoulder X-Ray 03/26/19 21:05 IMPRESSION: 1. No acute findings. Cervical Spine CT 03/26/19 21:47 IMPRESSION: 1. No acute intracranial hemorrhage. 2. No acute fracture of the cervical spine. Chest X-Ray 03/26/19 21:47 IMPRESSION: 1. Asymmetric left perihilar edema with left hilar prominence, suggesting pneumonia. Cannot exclude a left hilar mass. Head CT 03/26/19 21:47 IMPRESSION: 1. No acute intracranial hemorrhage. 2. No acute fracture of the cervical spine. Thoracic Spine CT 03/26/19 21:47 IMPRESSION: No acute compression fracture of the thoracic spine. Abdomen/Pelvis CT 03/26/19 22:31 IMPRESSION: 1. Hepatic steatosis. Correlate with lab values. 2. Groundglass opacity and consolidation in the left lung base. Consider chest CT scan for complete evaluation. 3. Small pericardial effusion. 4. 11.0 mm solid pulmonary nodule. Consider a non-contrast Chest CT at 3 months, a PET/CT, or tissue sampling. Reference: Radiology. 2017; 284(1):228-43. Chest CT 03/28/19 00:00 IMPRESSION: Since the chest film on 03/26/2019, patient has collapse the left lung. There is now diffuse left lung pneumonia with parapneumonic pleural effusion. Findings are worrisome for postobstructive pneumonia from endobronchial tumor or hilar mass. Mediastinal adenopathy Status: Image reviewed by me Assessment & Plan - Diagnosis (1) Pulmonary nodule Is this a current diagnosis for this admission?: Yes Plan: Very abnormal CT chest with lung nodule and mediastinal lymphadenopathy. This certainly appears malignant. However, will need pathology to confirm this. Pulmononary has been consulted for possible bronch. Hopefully this will help determine the cause. However, if patient does not response to treatment soon, would consider transfer to a tertiary center. (2) Acute delirium Is this a current diagnosis for this admission?: Yes Plan: I would check MRI brain, as head CT was done without contrast and may miss a bra in metastasis. This could also be secondary to hypoxia or other metabolic reason. (3) Leukocytosis Qualifiers: Leukocytosis type: unspecified Qualified Code(s): D72.829 - Elevated white blood cell count, unspecified Is this a current diagnosis for this admission?: Yes Plan: Most likely reactive. Will continue to follow. - Plan Summary Plan Summary: Patient was discussed with Dr. Calzada.
--- NOTE | 2019-03-30 17:04 | PDOC PROGRESS REPORT ---
Subjective Progress Note for:: 03/30/19 Subjective:: This is a 73 yr old male with a PMH of HTN and COPD who presented with productive cough and SOB. He was found to have left sided pneumonia and lactic acidosis on admission. 03/28: No acute event overnight. 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 He had waxing and waning episodes of confusion per RN and patient reportedly was asking where he is. Also had an episode where he expressed he needs "a box to poop". On encounter, he was already redirected and pacified. He is oriented to person and knows he is in a hospital. Denies chest pain or SOB. 03/29: Chest CT showed progression of pneumonia likely post-obstructive with a possible endobronchial tumor. This morning, patient is saturating well on BIPAP. He is oriented to person but says he is in [facility]. Consulted pulm onology. Attempts have been made to call his DPOA/ but she is unreachable at this time. He remains guarded given the progression of his pneumonia. 03/30: Patient continues to have waxing and waning episodes of confusion. This morning, he is oriented to person and knows he is in a hospital. He is saturating well on nasal cannul. He says his SOB has improved today. Discussed with pulm who is planning to do bronchoscopy on Tuesday or Tuesday. Discussed with oncology who has recommended with MRI of the brain to rule out mets. Still unable to get hold of patient's fiance. APS has been involved. Reason For Visit: COMMUNITY ACQUIRED PNEUMONIA Physical Exam Vital Signs: Temp Pulse Resp BP Pulse Ox 97.8 F 104 H 22 H 122/93 H 97 03/30/19 10:59 03/30/19 14:10 03/30/19 14:10 03/30/19 10:59 03/30/19 14:10 Intake & Output 03/29/19 03/30/19 03/31/19 06:59 06:59 06:59 Intake Total 2375 3411 350 Output Total 235 225 Balance 2140 3186 350 Weight 167 lb 5.294 oz General appearance: PRESENT: no acute distress, well-developed, well-nourished Head exam: PRESENT: atraumatic, normocephalic Eye exam: PRESENT: conjunctiva pink, EOMI, PERRLA. ABSENT: scleral icterus Ear exam: PRESENT: normal external ear exam Mouth exam: PRESENT: moist, tongue midline Neck exam: ABSENT: carotid bruit, JVD, lymphadenopathy, thyromegaly Respiratory exam: PRESENT: rales, rhonchi. ABSENT: wheezes Cardiovascular exam: PRESENT: RRR. ABSENT: diastolic murmur, rubs, systolic murmur Pulses: PRESENT: normal dorsalis pedis pul GI/Abdominal exam: PRESENT: normal bowel sounds, soft. ABSENT: distended, guarding, mass, organolmegaly, rebound, tenderness Rectal exam: PRESENT: deferred Neurological exam: PRESENT: altered, awake, oriented to person, CN II-XII grossly intact. ABSENT: motor sensory deficit Results Laboratory Results: 03/30/19 05:45 03/30/19 05:45 03/30/19 03/30/19 05:45 05:45 WBC 19.2 H RBC 4.00 L Hgb 9.7 L Hct 30.6 L MCV 76 L MCH 24.2 L MCHC 31.7 L RDW 16.9 H Plt Count 103 L Seg Neutrophils % 87.8 H Lymphocytes % 7.0 L Monocytes % 4.5 Eosinophils % 0.1 Basophils % 0.6 Absolute Neutrophils 16.9 H Absolute Lymphocytes 1.3 Absolute Monocytes 0.9 Absolute Eosinophils 0.0 Absolute Basophils 0.1 Sodium 140.9 Potassium 4.1 Chloride 103 Carbon Dioxide 28 Anion Gap 10 BUN 19 Creatinine 0.61 Est GFR ( Amer) > 60 Est GFR (Non-Af Amer) > 60 Glucose 130 H Calcium 8.8 Magnesium 2.2 Total Bilirubin 2.2 H AST 141 H ALT 172 H Alkaline Phosphatase 651 H Total Protein 5.7 L Albumin 2.6 L 03/26/19 03/26/19 03/28/19 21:30 21:30 06:57 Creatine Kinase 556 H 208 H Troponin I 0.062 03/29/19 03/30/19 06:50 05:45 Creatine Kinase 102 70 Troponin I Impressions: Shoulder X-Ray 03/26/19 21:05 IMPRESSION: 1. No acute findings. Cervical Spine CT 03/26/19 21:47 IMPRESSION: 1. No acute intracranial hemorrhage. 2. No acute fracture of the cervical spine. Chest X-Ray 03/26/19 21:47 IMPRESSION: 1. Asymmetric left perihilar edema with left hilar prominence, suggesting pneumonia. Cannot exclude a left hilar mass. Head CT 03/26/19 21:47 IMPRESSION: 1. No acute intracranial hemorrhage. 2. No acute fracture of the cervical spine. Thoracic Spine CT 03/26/19 21:47 IMPRESSION: No acute compression fracture of the thoracic spine. Abdomen/Pelvis CT 03/26/19 22:31 IMPRESSION: 1. Hepatic steatosis. Correlate with lab values. 2. Groundglass opacity and consolidation in the left lung base. Consider chest CT scan for complete evaluation. 3. Small pericardial effusion. 4. 11.0 mm solid pulmonary nodule. Consider a non-contrast Chest CT at 3 months, a PET/CT, or tissue sampling. Reference: Radiology. 2017; 284(1):228-43. Chest CT 03/28/19 00:00 IMPRESSION: Since the chest film on 03/26/2019, patient has collapse the left lung. There is now diffuse left lung pneumonia with parapneumonic pleural effusion. Findings are worrisome for postobstructive pneumonia from endobronchial tumor or hilar mass. Mediastinal adenopathy Assessment and Plan - Diagnosis (1) Pneumonia Is this a current diagnosis for this admission?: Yes Plan: Post-obstructive. Chest CT showed progression of pneumonia while on Rocephin and Azithromycin. Antibiotics were switched to vancomycin and Zosyn yesterday. Mucomyst was also added. Continue scheduled breathing treatments. Pulmonology has been consulted for bronchoscopy. 03/30: Continue vancomycin and Zosyn for now. (2) Endobronchial mass Is this a current diagnosis for this admission?: Yes Plan: Discussed with pulm who is planning to do bronchoscopy on Tuesday or Tuesday. Discussed with oncology who has recommended with MRI of the brain to rule out mets. Still unable to get hold of patient's . APS has been involved. (3) Acute delirium Is this a current diagnosis for this admission?: Yes Plan: Secondary to pneumonia. Ruling out brain mets. Patient is easily redirected and pacified by sitter. (4) Elevated LFTs Is this a current diagnosis for this admission?: Yes Plan: Patient is noted to have mildly elevated LFTs and hepatic steatosis on his CT scan. Hepatitis panel negative. Elevated liver enzymes are also concerning for possible metastatic disease in the setting of a newly diagnosed endobronchial mass. Oncology following. - Time Time Spent with patient: 25-34 minutes
--- NOTE | 2019-03-30 19:39 | RADIOLOGY REPORT (SQ) ---
EXAM DESCRIPTION: CT HEAD WITH COMPLETED DATE/TIME: 03/30/2019 6:52 pm REASON FOR STUDY: Possible mets to brain COMPARISON: 03/26/2019 TECHNIQUE: Axial images acquired through the brain with intravenous contrast. Images reviewed with b one, brain and subdural windows. Images stored on PACS. All CT scanners at this facility use dose modulation, iterative reconstruction, and/or weight based d osing when appropriate to reduce radiation dose to as low as reasonably achievable (ALARA). [facility]: Dose Right [facility]: CareDose [facility]: Dose Right [facility]: Teradose 4D [facility]: Dunamu CONTRAST TYPE AND DOSE: contrast/concentration: Isovue mg/ml; Total Contrast Delivered: 50.0 ml; To najma Saline Delivered: 50.0 ml RENAL FUNCTION: GFR > 60. RADIATION DOSE: CT Rad equipment meets quality standard of care and radiation dose reduction techniq ues were employed. CTDIvol: 53.2 mGy. DLP: 1044 mGy-cm.. LIMITATIONS: None. FINDINGS: VENTRICLES: Normal size and contour. CEREBRUM: Similar encephalomalacia-hypodensity in the right temporoparietal region. . No hemorrhage. No midline shift. No enhancing lesions. CEREBELLUM: No masses. No hemorrhage. No alteration of density. No evidence for acute infarction. No enhancing lesions. EXTRA-AXIAL SPACES: No fluid collections. No enhancing lesions. ORBITS AND GLOBE: No intra- or extraconal masses. Normal contour of globe without masses. CALVARIUM: No fracture. PARANASAL SINUSES: No fluid or mucosal thickening. SOFT TISSUES: No mass or hematoma. OTHER: No other significant finding. IMPRESSION: No enhancing lesions.No hemorrhage.Similar encephalomalacia-hypodensity in the right tem poroparietal region. EVIDENCE OF ACUTE STROKE: NO. TECHNICAL DOCUMENTATION: JOB ID: [id number] Quality ID # [id number]: Final reports with documentation of one or more dose reduction techniques (e.g., Au tomated exposure control, adjustment of the mA and/or kV according to patient size, use of iterative reconstruction technique) 2010 [employer]- All Rights Reserved Reading location - IP/workstation name: [email or web address]
[2019-03-31] MEDS: PIPERACILLIN SODIUM/TAZOBACTAM 3.375 GM in NORMAL SALINE 100 ML IV SCH ×4 (01:33→17:32)
[2019-03-31] MEDS: LEVALBUTEROL HCL NEB 1.25 MG/3 ML AMPUL NEB SCH ×4 (02:08→20:16)
[2019-03-31] MEDS: IPRATROPIUM BROMIDE 0.02% NEB 0.5 MG/2.5 ML AMPUL NEB SCH ×4 (02:08→20:16)
[2019-03-31] MEDS: ACETYLCYSTEINE 10% NEB 400 MG/4 ML VIAL NEB SCH ×4 (02:08→20:16)
[2019-03-31] MEDS: VANCOMYCIN HCL 750 MG in DEXTROSE 5%-WATER 250 ML IV SCH ×3 (05:03→21:07)
[2019-03-31] MEDS: BUDESONIDE NEB 0.5 MG/2 ML AMPUL NEB SCH ×2 (08:00→20:16)
[2019-03-31] MEDS: FONDAPARINUX SODIUM INJ 2.5 MG/0.5 ML DISP.SYRIN SUBCUT SCH (10:38)
[2019-03-31] MEDS: METOPROLOL TARTRATE 25 MG TABLET PO SCH ×2 (10:38→21:07)
[2019-03-31] MEDS: FAMOTIDINE 20 MG TABLET PO SCH ×2 (10:38→21:07)
[2019-03-31] MEDS: DOCUSATE SODIUM 100 MG CAPSULE PO SCH ×2 (10:38→17:32)
[2019-03-31 11:23] LABS: ABSOLUTE BASOPHILS # (AUTO) 0.2 10^3/uL (0.0-0.2); ABSOLUTE LYMPHOCYTES (AUTO) 1.2 10^3/uL (0.5-4.7); ABSOLUTE MONOCYTES (AUTO) 1.1 10^3/uL (0.1-1.4); ABSOLUTE NEUT (AUTO) 17.3 10^3/uL (1.7-8.2); BASOPHILS % (AUTO) 1.1 % (0-2); EOSINOPHILS % (AUTO) 0.1 % (0-6); HEMATOCRIT 27.4 % (37.9-51.0); HEMOGLOBIN 8.7 g/dL (13.5-17.0); LYMPHOCYTES % (AUTO) 6.3 % (13-45); MEAN CORPUSCULAR HEMOGLOBIN 24.2 pg (27.0-33.4); MEAN CORPUSCULAR HGB CONC 31.7 g/dL (32.0-36.0); MEAN CORPUSCULAR VOLUME 76 fl (80-97); MONOCYTES % (AUTO) 5.5 % (3-13); RED BLOOD COUNT 3.59 10^6/uL (4.35-5.55); RED CELL DISTRIBUTION WIDTH 16.8 % (11.5-14.0); TOTAL CELLS COUNTED % (AUTO) 100 %; WHITE BLOOD COUNT 19.8 10^3/uL (4.0-10.5)
[2019-03-31 11:24] LABS: PLATELET COUNT 461 10^3/uL (150-450)
[2019-03-31 11:32] LABS: ANION GAP 7 (5-19); BLOOD UREA NITROGEN 17 mg/dL (7-20); CALCIUM 8.2 mg/dL (8.4-10.2); CARBON DIOXIDE 29 mmol/L (22-30); CHLORIDE 103 mmol/L (98-107); GLUCOSE 103 mg/dL (75-110); POTASSIUM 3.8 mmol/L (3.6-5.0); SODIUM 138.9 mmol/L (137-145)
[2019-03-31] MEDS: NORMAL SALINE 1000 ML 1,000 ML IV PRN (12:45)
--- NOTE | 2019-03-31 13:57 | PDOC PROGRESS REPORT ---
Subjective Progress Note for:: 03/31/19 Subjective:: This is a 73 yr old male with a PMH of HTN and COPD who presented with productive cough and SOB. He was found to have left sided pneumonia and lactic acidosis on admission. 03/28: No acute event overnight. 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 He had waxing and waning episodes of confusion per RN and patient reportedly was asking where he is. Also had an episode where he expressed he needs "a box to poop". On encounter, he was already redirected and pacified. He is oriented to person and knows he is in a hospital. Denies chest pain or SOB. 03/29: Chest CT showed progression of pneumonia likely post-obstructive with a possible endobronchial tumor. This morning, patient is saturating well on BIPAP. He is oriented to person but says he is in [facility]. Consulted pulm onology. Attempts have been made to call his DPOA/ but she is unreachable at this time. He remains guarded given the progression of his pneumonia. 03/30: Patient continues to have waxing and waning episodes of confusion. This morning, he is oriented to person and knows he is in a hospital. He is saturating well on nasal cannul. He says his SOB has improved today. Discussed with pulm who is planning to do bronchoscopy on Tuesday or Tuesday. Discussed with oncology who has recommended with MRI of the brain to rule out mets. Still unable to get hold of patient's fiance. APS has been involved. 03/31: No acute event overnight. He is saturating well on room air. He says his SOB is better from yesterday. His fianceNeha is here on bedside and was updated about labs and finding of endobronchial mass and became upset and tearful. Patient is oriented to person, place and situation this morning. Discussed his code status in length. He expressed it makes him upset talking about these things. He expressed he does not want to be intubated and does not want defibrillation or chest compressions if he goes into cardiac arrest. His fiance became upset about this. This provider asked him to elaborate on this and is deemed competent at this particular encounter to make the decision that he is a DNR/DNI. He also expressed he wants his fianceNeha to be his surrogate decision maker if he is unable to make decisions. He has a step grandson but says he does not want him to be the surrogate decision maker. He is unequivocal about proceeding with bronchoscopy and need for temporary intubation for such procedure but expressed he would not want to pursue major surgeries on his chest if he does have cancer. Reason For Visit: COMMUNITY ACQUIRED PNEUMONIA Physical Exam Vital Signs: Temp Pulse Resp BP Pulse Ox 97.4 F 95 24 H 132/75 H 98 03/31/19 07:56 03/31/19 08:00 03/31/19 08:15 03/31/19 07:56 03/31/19 08:15 Intake & Output 03/30/19 03/31/19 04/01/19 06:59 06:59 06:59 Intake Total 3411 3542 400 Output Total 225 50 25 Balance 3186 3492 375 Weight 167 lb 5.294 oz 169 lb 12.095 oz General appearance: PRESENT: no acute distress, well-developed, well-nourished Head exam: PRESENT: atraumatic, normocephalic Eye exam: PRESENT: conjunctiva pink, EOMI, PERRLA. ABSENT: scleral icterus Ear exam: PRESENT: normal external ear exam Mouth exam: PRESENT: moist, tongue midline Neck exam: ABSENT: carotid bruit, JVD, lymphadenopathy, thyromegaly Respiratory exam: PRESENT: rales, rhonchi. ABSENT: wheezes Cardiovascular exam: PRESENT: RRR. ABSENT: diastolic murmur, rubs, systolic murmur Pulses: PRESENT: normal dorsalis pedis pul GI/Abdominal exam: PRESENT: normal bowel sounds, soft. ABSENT: distended, gua rding, mass, organolmegaly, rebound, tenderness Rectal exam: PRESENT: deferred Neurological exam: PRESENT: awake, oriented to person, oriented to place, oriented to situation, CN II-XII grossly intact. ABSENT: motor sensory deficit Results Laboratory Results: 03/31/19 11:08 03/31/19 11:08 03/31/19 03/31/19 11:08 11:08 WBC 19.8 H RBC 3.59 L Hgb 8.7 L Hct 27.4 L MCV 76 L MCH 24.2 L MCHC 31.7 L RDW 16.8 H Plt Count 461 H D Seg Neutrophils % 87.0 H Lymphocytes % 6.3 L Monocytes % 5.5 Eosinophils % 0.1 Basophils % 1.1 Absolute Neutrophils 17.3 H Absolute Lymphocytes 1.2 Absolute Monocytes 1.1 Absolute Eosinophils 0.0 Absolute Basophils 0.2 Sodium 138.9 Potassium 3.8 Chloride 103 Carbon Dioxide 29 Anion Gap 7 BUN 17 Creatinine 0.61 Est GFR ( Amer) > 60 Est GFR (Non-Af Amer) > 60 Glucose 103 Calcium 8.2 L 03/26/19 03/26/19 03/28/19 21:30 21:30 06:57 Creatine Kinase 556 H 208 H Troponin I 0.062 03/29/19 03/30/19 06:50 05:45 Creatine Kinase 102 70 Troponin I Impressions: Shoulder X-Ray 03/26/19 21:05 IMPRESSION: 1. No acute findings. Cervical Spine CT 03/26/19 21:47 IMPRESSION: 1. No acute intracranial hemorrhage. 2. No acute fracture of the cervical spine. Chest X-Ray 03/26/19 21:47 IMPRESSION: 1. Asymmetric left perihilar edema with left hilar prominence, suggesting pneumonia. Cannot exclude a left hilar mass. Thoracic Spine CT 03/26/19 21:47 IMPRESSION: No acute compression fracture of the thoracic spine. Abdomen/Pelvis CT 03/26/19 22:31 IMPRESSION: 1. Hepatic steatosis. Correlate with lab values. 2. Groundglass opacity and consolidation in the left lung base. Consider chest CT scan for complete evaluation. 3. Small pericardial effusion. 4. 11.0 mm solid pulmonary nodule. Consider a non-contrast Chest CT at 3 months, a PET/CT, or tissue sampling. Reference: Radiology. 2017; 284(1):228-43. Chest CT 03/28/19 00:00 IMPRESSION: Since the chest film on 03/26/2019, patient has collapse the left neha ng. There is now diffuse left lung pneumonia with parapneumonic pleural effusion. Findings are worrisome for postobstructive pneumonia from endobronchial tumor or hilar mass. Mediastinal adenopathy Head CT 03/30/19 00:00 IMPRESSION: No enhancing lesions.No hemorrhage.Similar encephalomalacia- hypodensity in the right temporoparietal region. EVIDENCE OF ACUTE STROKE: NO. Assessment and Plan - Diagnosis (1) Pneumonia Is this a current diagnosis for this admission?: Yes Plan: Post-obstructive. Chest CT showed progression of pneumonia while on Rocephin and Azithromycin. Antibiotics were switched to vancomycin and Zosyn yesterday. Mucomyst was also added. Continue scheduled breathing treatments. Pulmonology has been consulted for bronchoscopy. 03/31: Continue vancomycin and Zosyn for now. (2) Endobronchial mass Is this a current diagnosis for this admission?: Yes Plan: Discussed with pulm who is planning to do bronchoscopy on Tuesday or Tuesday. Discussed with oncology who has recommended with MRI of the brain to rule out mets. Still unable to get hold of patient's . APS has been involved. 03/31: He is saturating well on room air. He says his SOB is better from yes terday. His remingtonNeha is here on bedside and was updated about labs and finding of endobronchial mass and became upset and tearful. Patient is oriented to person, place and situation this morning. Discussed his code status in length. He expressed it makes him upset talking about these things. He expressed he does not want to be intubated and does not want defibrillation or chest compressions if he goes into cardiac arrest. This provider asked him to elaborate on this and is deemed competent at this particular encounter to make the decision that he is a DNR/DNI. He also expressed he wants his Neha macedo to be his surrogate decision maker if he is unable to make decisions. He has a step grandson but says he does not want him to be the surrogate decision maker. He is unequivocal about proceeding with bronchoscopy and need for temporary intubation for such procedure but expressed he would not want to pursue major surgeries on his chest if he does have cancer. (3) Acute delirium Is this a current diagnosis for this admission?: Yes Plan: Secondary to pneumonia. Ruling out brain mets. Patient is easily redirected and pacified by sitter. (4) Elevated LFTs Is this a current diagnosis for this admission?: Yes Plan: Patient is noted to have mildly elevated LFTs and hepatic steatosis on his CT scan. Hepatitis panel negative. Elevated liver enzymes are also concerning for possible metastatic disease in the setting of a newly diagnosed endobronchial mass. Oncology following. - Time Time Spent with patient: 35 or more minutes
--- NOTE | 2019-03-31 15:01 | RADIOLOGY REPORT (SQ) ---
EXAM DESCRIPTION: CHEST SINGLE VIEW COMPLETED DATE/TIME: 03/31/2019 2:40 pm REASON FOR STUDY: hypoxia COMPARISON: 03/26/2019. 03/28/2019 CT chest. NUMBER OF VIEWS: One view. TECHNIQUE: Single frontal radiographic view of the chest acquired. LIMITATIONS: None. FINDINGS: LUNGS AND PLEURA: Persistent abnormal opacity in the left lung predominantly in the lower 2/3 of the chest with consolidation/ collapse and pleural fluid. This looks perhaps slightly improve d compared to CT chest. CT chest is worrisome for a left hilar mass. MEDIASTINUM AND HILAR STRUCTURES: Stable contours. HEART AND VASCULAR STRUCTURES: Stable heart. BONES: No acute findings. HARDWARE: None in the chest. OTHER: No other significant finding. IMPRESSION: Persistent abnormal left lung opacity. Worrisome for postobstructive collapse related t o hilar mass. TECHNICAL DOCUMENTATION: JOB ID: [id number] [employer]- All Rights Reserved Reading location - IP/workstation name: [email or web address]
[2019-03-31] MEDS: LEVALBUTEROL HCL NEB 0.63 MG/3 ML AMPUL NEB PRN (18:26)
[2019-04-01] MEDS: PIPERACILLIN SODIUM/TAZOBACTAM 3.375 GM in NORMAL SALINE 100 ML IV SCH ×4 (00:40→17:07)
[2019-04-01] MEDS: IPRATROPIUM BROMIDE 0.02% NEB 0.5 MG/2.5 ML AMPUL NEB SCH ×4 (02:49→20:17)
[2019-04-01] MEDS: ACETYLCYSTEINE 10% NEB 400 MG/4 ML VIAL NEB SCH ×4 (02:49→20:17)
[2019-04-01] MEDS: LEVALBUTEROL HCL NEB 1.25 MG/3 ML AMPUL NEB SCH ×4 (02:49→20:17)
[2019-04-01] MEDS: VANCOMYCIN HCL 750 MG in DEXTROSE 5%-WATER 250 ML IV SCH ×3 (05:04→22:25)
[2019-04-01] MEDS: NORMAL SALINE 1000 ML 1,000 ML IV PRN (05:05)
[2019-04-01] MEDS: BUDESONIDE NEB 0.5 MG/2 ML AMPUL NEB SCH ×2 (07:54→20:17)
[2019-04-01 10:13] LABS: ARTERIAL BLOOD HCO3 28.1 mmol/L (20-24); ARTERIAL BLOOD O2 SATURATION 95.9 % (94-98); ARTERIAL BLOOD PH 7.46 (7.35-7.45); ARTERIAL BLOOD TOTAL CO2 29.3 mmol/L (23-27)
[2019-04-01 10:16] LABS: ARTERIAL BLOOD FIO2 35%
--- NOTE | 2019-04-01 10:48 | RADIOLOGY REPORT (SQ) ---
EXAM DESCRIPTION: CHEST SINGLE VIEW COMPLETED DATE/TIME: 04/01/2019 10:23 am REASON FOR STUDY: AMS COMPARISON: Chest films 12/21/2017, 03/26/2019 CT chest 03/28/2019 EXAM PARAMETERS: NUMBER OF VIEWS: One view. TECHNIQUE: Single frontal radiographic view of the chest acquired. RADIATION DOSE: NA LIMITATIONS: None. FINDINGS: LUNGS AND PLEURA: Near complete collapse of the left lung with volume loss and shift of me diastinal structures to the left. Small amount of aerated left upper lobe is similar compared to CT chest 03/28/2019 and AP chest 03/31/2019. There is a left pleural effusion blunting the lateral costophrenic sulcus. Pleural effusion is simil ar compared to CT 03/28/2019. Right lung is hyperinflated and hyperlucent but clear. No right pleural effusion or pneumothorax. MEDIASTINUM AND HILAR STRUCTURES: No masses. Contour normal. HEART AND VASCULAR STRUCTURES: Heart normal in size. Normal vasculature. BONES: No acute findings. HARDWARE: None in the chest. OTHER: No other significant finding. IMPRESSION: Near complete collapse of the left lung with volume loss in shift of mediastinal structu res to the left. Small left pleural effusion. Findings are similar compared to CT 03/28/2019 and ches t film 03/31/2019. These findings are new compared to November 2018. TECHNICAL DOCUMENTATION: JOB ID: [id number] [employer]- All Rights Reserved Reading location - IP/workstation name: [email or web address]
[2019-04-01] MEDS: FAMOTIDINE 20 MG TABLET PO SCH ×2 (10:57→22:25)
[2019-04-01] MEDS: METOPROLOL TARTRATE 25 MG TABLET PO SCH ×2 (10:57→22:25)
[2019-04-01] MEDS: DOCUSATE SODIUM 100 MG CAPSULE PO SCH ×2 (10:57→17:07)
[2019-04-01] MEDS: FONDAPARINUX SODIUM INJ 2.5 MG/0.5 ML DISP.SYRIN SUBCUT SCH (10:57)
--- NOTE | 2019-04-01 14:28 | PDOC PROGRESS REPORT ---
Subjective Progress Note for:: 04/01/19 Subjective:: This is a 73 yr old male with a PMH of HTN and COPD who presented with productive cough and SOB. He was found to have left sided pneumonia and lactic acidosis on admission. 03/28: No acute event overnight. 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 He had waxing and waning episodes of confusion per RN and patient reportedly was asking where he is. Also had an episode where he expressed he needs "a box to poop". On encounter, he was already redirected and pacified. He is oriented to person and knows he is in a hospital. Denies chest pain or SOB. 03/29: Chest CT showed progression of pneumonia likely post-obstructive with a possible endobronchial tumor. This morning, patient is saturating well on BIPAP. He is oriented to person but says he is in [facility]. Consulted pulm onology. Attempts have been made to call his DPOA/ but she is unreachable at this time. He remains guarded given the progression of his pneumonia. 03/30: Patient continues to have waxing and waning episodes of confusion. This morning, he is oriented to person and knows he is in a hospital. He is saturating well on nasal cannul. He says his SOB has improved today. Discussed with pulm who is planning to do bronchoscopy on Tuesday or Tuesday. Discussed with oncology who has recommended with MRI of the brain to rule out mets. Still unable to get hold of patient's fiance. APS has been involved. 03/31: He is saturating well on room air. He says his SOB is better from yesterday. His fianceNeha is here on bedside and was updated about labs and finding of endobronchial mass and became upset and tearful. Patient is oriented to person, place and situation this morning. Discussed his code status in length. He expressed it makes him upset talking about these things. He expressed he does not want to be intubated and does not want defibrillation or chest compressions if he goes into cardiac arrest. His fiance became upset about this. This provider asked him to elaborate on this and he is deemed competent at this particular encounter to make the decision that he is a DNR/DNI. He also expr essed he wants his fianceNeha to be his surrogate decision maker if he is unable to make decisions. He has a step grandson but says he does not want him to be the surrogate decision maker. He is unequivocal about proceeding with bronchoscopy and need for temporary intubation for such procedure but expressed he would not want to pursue any major surgery on his chest if he does have cancer. 04/01: Patient appears more lethargic today but is arousable but not able to maintain a conversation. Per staff, he was awake most of the night. He is saturating well on BIPAP. His fiance expressed she is upset that he "does not want to fight to stay alive". Reason For Visit: COMMUNITY ACQUIRED PNEUMONIA Physical Exam Vital Signs: Temp Pulse Resp BP Pulse Ox 97.3 F 101 H 24 H 118/81 99 04/01/19 08:05 04/01/19 08:05 04/01/19 08:05 04/01/19 08:05 04/01/19 08:05 Intake & Output 03/31/19 04/01/19 04/02/19 06:59 06:59 06:59 Intake Total 3542 1900 350 Output Total 50 75 Balance 3492 1825 350 Weight 169 lb 12.095 oz 175 lb 0.752 oz General appearance: PRESENT: other - lethargic Head exam: PRESENT: atraumatic, normocephalic Eye exam: PRESENT: conjunctiva pink, EOMI, PERRLA. ABSENT: scleral icterus Ear exam: PRESENT: normal external ear exam Mouth exam: PRESENT: moist, tongue midline Neck exam: ABSENT: carotid bruit, JVD, lymphadenopathy, thyromegaly Respiratory exam: PRESENT: decreased breath sounds - left lung field-mid to base, rhonchi. ABSENT: rales, wheezes Pulses: PRESENT: normal dorsalis pedis pul GI/Abdominal exam: PRESENT: normal bowel sounds, soft. ABSENT: distended, guarding, mass, organolmegaly, rebound, tenderness Rectal exam: PRESENT: deferred Neurological exam: PRESENT: altered, CN II-XII grossly intact. ABSENT: motor sensory deficit Results Laboratory Results: 03/31/19 11:08 03/31/19 11:08 04/01/19 10:00 Carbonic Acid 1.20 HCO3/H2CO3 Ratio 23:1 ABG pH 7.46 H ABG pCO2 40.0 ABG pO2 76.0 L ABG HCO3 28.1 H ABG O2 Saturation 95.9 ABG Base Excess 4.0 FiO2 35% 03/26/19 22:10 Blood Blood Culture - Final NO GROWTH IN 5 DAYS 03/26/19 21:30 Blood Blood Culture - Final NO GROWTH IN 5 DAYS 03/26/19 03/26/19 03/28/19 21:30 21:30 06:57 Creatine Kinase 556 H 208 H Troponin I 0.062 03/29/19 03/30/19 06:50 05:45 Creatine Kinase 102 70 Troponin I Impressions: Shoulder X-Ray 03/26/19 21:05 IMPRESSION: 1. No acute findings. Cervical Spine CT 03/26/19 21:47 IMPRESSION: 1. No acute intracranial hemorrhage. 2. No acute fracture of the cervical spine. Thoracic Spine CT 03/26/19 21:47 IMPRESSION: No acute compression fracture of the thoracic spine. Abdomen/Pelvis CT 03/26/19 22:31 IMPRESSION: 1. Hepatic steatosis. Correlate with lab values. 2. Groundglass opacity and consolidation in the left lung base. Consider chest CT scan for complete evaluation. 3. Small pericardial effusion. 4. 11.0 mm solid pulmonary nodule. Consider a non-contrast Chest CT at 3 months, a PET/CT, or tissue sampling. Reference: Radiology. 2017; 284(1):228-43. Chest CT 03/28/19 00:00 IMPRESSION: Since the chest film on 03/26/2019, patient has collapse the left lung. There is now diffuse left lung pneumonia with parapneumonic pleural effusion. Findings are worrisome for postobstructive pneumonia from endobronchial tumor or hilar mass. Mediastinal adenopathy Head CT 03/30/19 00:00 IMPRESSION: No enhancing lesions.No hemorrhage.Similar encephalomalacia- hypodensity in the right temporoparietal region. EVIDENCE OF ACUTE STROKE: NO. Chest X-Ray 04/01/19 00:00 IMPRESSION: Near complete collapse of the left lung with volume loss in shift of mediastinal structures to the left. Small left pleural effusion. Findings are similar compared to CT 03/28/2019 and chest film 03/31/2019. These findings are new compared to November 2018. Assessment and Plan - Diagnosis (1) Pneumonia Is this a current diagnosis for this admission?: Yes Plan: Post-obstructive. Chest CT showed progression of pneumonia while on Rocephin and Azithromycin. Antibiotics were switched to vancomycin and Zosyn yesterday. Mucomyst was also added. Continue scheduled breathing treatments. Pulmonology has been consulted for bronchoscopy. 03/31: Continue vancomycin and Zosyn for now. 04/01: Repeat chest x-ray today. (2) Endobronchial mass Is this a current diagnosis for this admission?: Yes Plan: Discussed with pulm who is planning to do bronchoscopy on Tuesday or Tuesday. Discussed with oncology who has recommended with MRI of the brain to rule out mets. Still unable to get hold of patient's . APS has been involved. 03/31: He is saturating well on room air. He says his SOB is better from yesterday. His remingtonNeha is here on bedside and was updated about labs and finding of endobronchial mass and became upset and tearful. Patient is oriented to person, place and situation this morning. Discussed his code status in length. He expressed it makes him upset talking about these things. He expressed he does not want to be intubated and does not want defibrillation or chest compressions if he goes into cardiac arrest. This provider asked him to elaborate on this and is deemed competent at this particular encounter to make the decision that he is a DNR/DNI. He also expressed he wants his Neha macedo to be his surrogate decision maker if he is unable to make decisions. He has a s tep grandson but says he does not want him to be the surrogate decision maker. He is unequivocal about proceeding with bronchoscopy and need for temporary intubation for such procedure but expressed he would not want to pursue any major surgery on his chest if he does have cancer. (3) Acute delirium Is this a current diagnosis for this admission?: Yes Plan: Secondary to pneumonia. Ruling out brain mets. (4) Elevated LFTs Is this a current diagnosis for this admission?: Yes Plan: Patient is noted to have mildly elevated LFTs and hepatic steatosis on his CT scan. Hepatitis panel negative. Elevated liver enzymes are also concerning for possible metastatic disease in the setting of a newly diagnosed endobronchial mass. Oncology following. - Time Time Spent with patient: 15-24 minutes
[2019-04-02] MEDS: PIPERACILLIN SODIUM/TAZOBACTAM 3.375 GM in NORMAL SALINE 100 ML IV SCH ×4 (00:52→18:16)
[2019-04-02] MEDS: TEMAZEPAM 15 MG CAPSULE PO PRN (00:55)
[2019-04-02] MEDS: IPRATROPIUM BROMIDE 0.02% NEB 0.5 MG/2.5 ML AMPUL NEB SCH ×4 (02:17→20:54)
[2019-04-02] MEDS: LEVALBUTEROL HCL NEB 1.25 MG/3 ML AMPUL NEB SCH ×4 (02:17→20:54)
[2019-04-02] MEDS: ACETYLCYSTEINE 10% NEB 400 MG/4 ML VIAL NEB SCH ×4 (02:17→20:53)
[2019-04-02] MEDS: VANCOMYCIN HCL 750 MG in DEXTROSE 5%-WATER 250 ML IV SCH ×3 (06:32→21:33)
[2019-04-02] MEDS: NORMAL SALINE 1000 ML 1,000 ML IV PRN (06:39)
--- NOTE | 2019-04-02 07:59 | PDOC PROGRESS REPORT ---
Subjective Progress Note for:: 04/02/19 Subjective:: Patient is able to speak with me and make sense today. He still has BiPAP mask on, so is difficult to understand, but states his breathing is improving. No pain. States he has been eating well. Reason For Visit: COMMUNITY ACQUIRED PNEUMONIA Physical Exam Vital Signs: Temp Pulse Resp BP Pulse Ox 97.4 F 90 14 85/51 L 100 04/02/19 04:04 04/02/19 04:04 04/02/19 04:04 04/02/19 04:04 04/02/19 04:04 Intake & Output 04/01/19 04/02/19 04/03/19 06:59 06:59 06:59 Intake Total 1900 2390 100 Output Total 75 225 Balance 1825 2165 100 Weight 79.4 kg 77.2 kg General appearance: PRESENT: well-developed, well-nourished Head exam: PRESENT: normocephalic Respiratory exam: PRESENT: crackles, wheezes Cardiovascular exam: PRESENT: other - Heart sounds obscured. GI/Abdominal exam: PRESENT: soft. ABSENT: tenderness Extremities exam: ABSENT: pedal edema Neurological exam: PRESENT: alert, awake Psychiatric exam: PRESENT: appropriate affect Skin exam: PRESENT: normal color Results Laboratory Results: 03/31/19 11:08 03/31/19 11:08 04/01/19 10:00 Carbonic Acid 1.20 HCO3/H2CO3 Ratio 23:1 ABG pH 7.46 H ABG pCO2 40.0 ABG pO2 76.0 L ABG HCO3 28.1 H ABG O2 Saturation 95.9 ABG Base Excess 4.0 FiO2 35% 03/26/19 03/26/19 03/28/19 21:30 21:30 06:57 Creatine Kinase 556 H 208 H Troponin I 0.062 03/29/19 03/30/19 06:50 05:45 Creatine Kinase 102 70 Troponin I Impressions: Shoulder X-Ray 03/26/19 21:05 IMPRESSION: 1. No acute findings. Cervical Spine CT 03/26/19 21:47 IMPRESSION: 1. No acute intracranial hemorrhage. 2. No acute fracture of the cervical spine. Thoracic Spine CT 03/26/19 21:47 IMPRESSION: No acute compression fracture of the thoracic spine. Abdomen/Pelvis CT 03/26/19 22:31 IMPRESSION: 1. Hepatic steatosis. Correlate with lab values. 2. Groundglass opacity and consolidation in the left lung base. Consider chest CT scan for complete evaluation. 3. Small pericardial effusion. 4. 11.0 mm solid pulmonary nodule. Consider a non-contrast Chest CT at 3 months, a PET/CT, or tissue sampling. Reference: Radiology. 2017; 284(1):228-43. Chest CT 03/28/19 00:00 IMPRESSION: Since the chest film on 03/26/2019, patient has collapse the left lung. There is now diffuse left lung pneumonia with parapneumonic pleural effusion. Findings are worrisome for postobstructive pneumonia from endobronchial tumor or hilar mass. Mediastinal adenopathy Head CT 03/30/19 00:00 IMPRESSION: No enhancing lesions.No hemorrhage.Similar encephalomalacia- hypodensity in the right temporoparietal region. EVIDENCE OF ACUTE STROKE: NO. Chest X-Ray 04/01/19 00:00 IMPRESSION: Near complete collapse of the left lung with volume loss in shift of mediastinal structures to the left. Small left pleural effusion. Findings are similar compared to CT 03/28/2019 and chest film 03/31/2019. These findings are new compared to November 2018. Assessment & Plan - Diagnosis (1) Pulmonary nodule Is this a current diagnosis for this admission?: Yes Plan: Await pathology from Bronchoscopy, planned for today or tomorrow. (2) Acute delirium Is this a current diagnosis for this admission?: Yes Plan: Resolving. Hypoxia has improved. (3) Leukocytosis Qualifiers: Leukocytosis type: unspecified Qualified Code(s): D72.829 - Elevated white blood cell count, unspecified Is this a current diagnosis for this admission?: Yes Plan: With thrombocytosis. Most likely reactive. Continue to monitor. Initial cultures have been negative. However, this could be a post-obstructive pneumonia. I will defer to primary team.
[2019-04-02] MEDS: BUDESONIDE NEB 0.5 MG/2 ML AMPUL NEB SCH ×2 (08:33→20:54)
[2019-04-02] MEDS ORDERED: DEXTROSE 50%-WATER 25 GM/50 ML DISP.SYRIN IV PRN ×2 (09:13)
[2019-04-02] MEDS ORDERED: GLUCAGON,HUMAN RECOMB 1 MG INJ SUBCUT PRN (09:13)
[2019-04-02] MEDS ORDERED: DEXTROSE 40% GEL 15 GM TUBE PO PRN ×2 (09:13)
[2019-04-02] MEDS: DOCUSATE SODIUM 100 MG CAPSULE PO SCH ×2 (09:39→18:16)
[2019-04-02] MEDS: FAMOTIDINE 20 MG TABLET PO SCH ×2 (09:39→21:32)
[2019-04-02] MEDS: FONDAPARINUX SODIUM INJ 2.5 MG/0.5 ML DISP.SYRIN SUBCUT SCH (09:39)
[2019-04-02] MEDS: METOPROLOL TARTRATE 25 MG TABLET PO SCH ×2 (09:39→21:32)
--- NOTE | 2019-04-02 10:57 | RADIOLOGY REPORT (SQ) ---
EXAM DESCRIPTION: CHEST SINGLE VIEW COMPLETED DATE/TIME: 04/02/2019 10:24 am REASON FOR STUDY: lung mass COMPARISON: 04/01/2019 EXAM PARAMETERS: NUMBER OF VIEWS: One view. TECHNIQUE: Single frontal radiographic view of the chest acquired. RADIATION DOSE: NA LIMITATIONS: None. FINDINGS: LUNGS AND PLEURA: There is reduced volume in the left hemithorax. There is considerable p erihilar and retrocardiac opacification. There appears to be slightly improved aeration compared to the earlier study. MEDIASTINUM AND HILAR STRUCTURES: No masses. Contour normal. HEART AND VASCULAR STRUCTURES: Heart normal in size. Normal vasculature. BONES: No acute findings. HARDWARE: None in the chest. OTHER: No other significant finding. IMPRESSION: Left pleural effusion. Airspace disease in the left lower lobe and possibly the lingula . There does appear to be slight improvement since the earlier study. TECHNICAL DOCUMENTATION: JOB ID: [id number] [employer]- All Rights Reserved Reading location - IP/workstation name: [email or web address]
[2019-04-02 11:13] LABS: ABSOLUTE EOSINOPHILS # (AUTO) 0.1 10^3/uL (0.0-0.6); ABSOLUTE MONOCYTES (AUTO) 1.4 10^3/uL (0.1-1.4); ABSOLUTE NEUT (AUTO) 15.6 10^3/uL (1.7-8.2); BASOPHILS % (AUTO) 0.2 % (0-2); EOSINOPHILS % (AUTO) 0.5 % (0-6); HEMATOCRIT 31.2 % (37.9-51.0); HEMOGLOBIN 9.9 g/dL (13.5-17.0); LYMPHOCYTES % (AUTO) 5.4 % (13-45); MEAN CORPUSCULAR HEMOGLOBIN 24.5 pg (27.0-33.4); MEAN CORPUSCULAR HGB CONC 31.6 g/dL (32.0-36.0); MEAN CORPUSCULAR VOLUME 78 fl (80-97); MONOCYTES % (AUTO) 7.7 % (3-13); PLATELET COUNT 417 10^3/uL (150-450); PROTHROMBIN TIME 13.7 SEC (11.4-15.4); RED BLOOD COUNT 4.02 10^6/uL (4.35-5.55); RED CELL DISTRIBUTION WIDTH 17.4 % (11.5-14.0); SEGMENTED NEUTROPHILS % (AUTO) 86.2 % (42-78); TOTAL CELLS COUNTED % (AUTO) 100 %; WHITE BLOOD COUNT 18.1 10^3/uL (4.0-10.5)
[2019-04-02 11:33] LABS: ANION GAP 8 (5-19); BLOOD UREA NITROGEN 19 mg/dL (7-20); CALCIUM 8.5 mg/dL (8.4-10.2); CARBON DIOXIDE 29 mmol/L (22-30); CHLORIDE 102 mmol/L (98-107); GLUCOSE 110 mg/dL (75-110); POTASSIUM 3.8 mmol/L (3.6-5.0); SODIUM 139.4 mmol/L (137-145)
--- NOTE | 2019-04-02 12:01 | PDOC PROGRESS REPORT ---
Subjective Progress Note for:: 03/30/19 Subjective:: Awake but confused wearing BiPAP difficult to understand Reason For Visit: COMMUNITY ACQUIRED PNEUMONIA Physical Exam Vital Signs: Temp Pulse Resp BP Pulse Ox 97.4 F 100 14 85/51 L 100 04/02/19 04:04 04/02/19 07:00 04/02/19 04:04 04/02/19 04:04 04/02/19 04:04 Intake & Output 04/01/19 04/02/19 04/03/19 06:59 06:59 06:59 Intake Total 1900 2390 350 Output Total 75 225 Balance 1825 2165 350 Weight 79.4 kg 77.2 kg General appearance: PRESENT: no acute distress, cooperative, disheveled Head exam: PRESENT: atraumatic, normocephalic Eye exam: PRESENT: conjunctiva pale, EOMI. ABSENT: nystagmus, periorbital swelling, scleral icterus Mouth exam: PRESENT: dry mucosa, neck supple, tongue midline Neck exam: ABSENT: carotid bruit, JVD, lymphadenopathy, thyromegaly, tracheal deviation, tracheostomy Respiratory exam: PRESENT: decreased breath sounds, prolonged expiratory phas, rales, rhonchi, tachypnea, wheezes. ABSENT: stridor Cardiovascular exam: PRESENT: RRR, +S1, +S2, tachycardia. ABSENT: bradycardia Pulses: PRESENT: normal radial pulses GI/Abdominal exam: PRESENT: soft Extremities exam: ABSENT: calf tenderness, joint swelling Musculoskeletal exam: ABSENT: ambulatory, deformity, dislocation Neurological exam: PRESENT: awake Psychiatric exam: PRESENT: flat affect Skin exam: PRESENT: dry, warm Results Laboratory Results: 03/31/19 11:08 03/31/19 11:08 04/01/19 10:00 Carbonic Acid 1.20 HCO3/H2CO3 Ratio 23:1 ABG pH 7.46 H ABG pCO2 40.0 ABG pO2 76.0 L ABG HCO3 28.1 H ABG O2 Saturation 95.9 ABG Base Excess 4.0 FiO2 35% 03/26/19 03/26/19 03/28/19 21:30 21:30 06:57 Creatine Kinase 556 H 208 H Troponin I 0.062 03/29/19 03/30/19 06:50 05:45 Creatine Kinase 102 70 Troponin I Impressions: Shoulder X-Ray 03/26/19 21:05 IMPRESSION: 1. No acute findings. Cervical Spine CT 03/26/19 21:47 IMPRESSION: 1. No acute intracranial hemorrhage. 2. No acute fracture of the cervical spine. Thoracic Spine CT 03/26/19 21:47 IMPRESSION: No acute compression fracture of the thoracic spine. Abdomen/Pelvis CT 03/26/19 22:31 IMPRESSION: 1. Hepatic steatosis. Correlate with lab values. 2. Groundglass opacity and consolidation in the left lung base. Consider chest CT scan for complete evaluation. 3. Small pericardial effusion. 4. 11.0 mm solid pulmonary nodule. Consider a non-contrast Chest CT at 3 months, a PET/CT, or tissue sampling. Reference: Radiology. 2017; 284(1):228-43. Chest CT 03/28/19 00:00 IMPRESSION: Since the chest film on 03/26/2019, patient has collapse the left kenzie g. There is now diffuse left lung pneumonia with parapneumonic pleural effusion. Findings are worrisome for postobstructive pneumonia from endobronchial tumor or hilar mass. Mediastinal adenopathy Head CT 03/30/19 00:00 IMPRESSION: No enhancing lesions.No hemorrhage.Similar encephalomalacia- hypodensity in the right temporoparietal region. EVIDENCE OF ACUTE STROKE: NO. Chest X-Ray 04/01/19 00:00 IMPRESSION: Near complete collapse of the left lung with volume loss in shift of mediastinal structures to the left. Small left pleural effusion. Findings are similar compared to CT 03/28/2019 and chest film 03/31/2019. These findings are new compared to November 2018. Assessment & Plan - Diagnosis (1) Community acquired pneumonia of left lower lobe of lung Is this a current diagnosis for this admission?: Yes Plan: Continue to treat for community-acquired pneumonia (2) Endobronchial mass Is this a current diagnosis for this admission?: Yes Plan: Patient becomes more stable if he is agreeable we will proceed with fiberoptic bronchoscopy
--- NOTE | 2019-04-02 12:03 | PDOC PROGRESS REPORT ---
Subjective Progress Note for:: 04/02/19 Subjective:: awake declined bronchoscopy he is now a DNR Reason For Visit: COMMUNITY ACQUIRED PNEUMONIA Physical Exam Vital Signs: Temp Pulse Resp BP Pulse Ox 97.4 F 100 14 85/51 L 100 04/02/19 04:04 04/02/19 07:00 04/02/19 04:04 04/02/19 04:04 04/02/19 04:04 Intake & Output 04/01/19 04/02/19 04/03/19 06:59 06:59 06:59 Intake Total 1900 2390 350 Output Total 75 225 Balance 1825 2165 350 Weight 79.4 kg 77.2 kg General appearance: PRESENT: no acute distress, cooperative, disheveled Head exam: PRESENT: atraumatic, normocephalic Eye exam: PRESENT: conjunctiva pale, EOMI. ABSENT: nystagmus, periorbital swelling Mouth exam: PRESENT: dry mucosa, neck supple, tongue midline Neck exam: ABSENT: carotid bruit, JVD, lymphadenopathy, thyromegaly, tracheal deviation, tracheostomy Respiratory exam: PRESENT: decreased breath sounds, prolonged expiratory phas, rales, rhonchi, symmetrical, unlabored, wheezes. ABSENT: retraction, stridor Cardiovascular exam: PRESENT: RRR, +S1, +S2 Pulses: PRESENT: normal radial pulses GI/Abdominal exam: PRESENT: soft Extremities exam: ABSENT: calf tenderness, clubbing Musculoskeletal exam: ABSENT: deformity, dislocation Neurological exam: PRESENT: awake Psychiatric exam: PRESENT: flat affect Skin exam: PRESENT: dry, warm Results Laboratory Results: 03/31/19 11:08 03/31/19 11:08 04/01/19 10:00 Carbonic Acid 1.20 HCO3/H2CO3 Ratio 23:1 ABG pH 7.46 H ABG pCO2 40.0 ABG pO2 76.0 L ABG HCO3 28.1 H ABG O2 Saturation 95.9 ABG Base Excess 4.0 FiO2 35% 03/26/19 03/26/19 03/28/19 21:30 21:30 06:57 Creatine Kinase 556 H 208 H Troponin I 0.062 03/29/19 03/30/19 06:50 05:45 Creatine Kinase 102 70 Troponin I Impressions: Shoulder X-Ray 03/26/19 21:05 IMPRESSION: 1. No acute findings. Cervical Spine CT 03/26/19 21:47 IMPRESSION: 1. No acute intracranial hemorrhage. 2. No acute fracture of the cervical spine. Thoracic Spine CT 03/26/19 21:47 IMPRESSION: No acute compression fracture of the thoracic spine. Abdomen/Pelvis CT 03/26/19 22:31 IMPRESSION: 1. Hepatic steatosis. Correlate with lab values. 2. Groundglass opacity and consolidation in the left lung base. Consider chest CT scan for complete evaluation. 3. Small pericardial effusion. 4. 11.0 mm solid pulmonary nodule. Consider a non-contrast Chest CT at 3 months, a PET/CT, or tissue sampling. Reference: Radiology. 2017; 284(1):228-43. Chest CT 03/28/19 00:00 IMPRESSION: Since the chest film on 03/26/2019, patient has collapse the left lung. There is now diffuse left lung pneumonia with parapneumonic pleural effusion. Findings are worrisome for postobstructive pneumonia from endobronchial tumor or hilar mass. Mediastinal adenopathy Head CT 03/30/19 00:00 IMPRESSION: No enhancing lesions.No hemorrhage.Similar encephalomalacia- hypodensity in the right temporoparietal region. EVIDENCE OF ACUTE STROKE: NO. Chest X-Ray 04/01/19 00:00 IMPRESSION: Near complete collapse of the left lung with volume loss in shift of mediastinal structures to the left. Small left pleural effusion. Findings are similar compared to CT 03/28/2019 and chest film 03/31/2019. These findings are new compared to November 2018. Assessment & Plan - Diagnosis (1) Community acquired pneumonia of left lower lobe of lung Is this a current diagnosis for this admission?: Yes Plan: Continue to treat for community-acquired pneumonia (2) Endobronchial mass Is this a current diagnosis for this admission?: Yes Plan: Patient declined fiberoptic bronchoscopy
--- NOTE | 2019-04-02 14:28 | PDOC PROGRESS REPORT ---
Subjective Progress Note for:: 04/02/19 Subjective:: This is a 73 yr old male with a PMH of HTN and COPD who presented with productive cough and SOB. He was found to have left sided pneumonia and lactic acidosis on admission. 03/28: No acute event overnight. 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 He had waxing and waning episodes of confusion per RN and patient reportedly was asking where he is. Also had an episode where he expressed he needs "a box to poop". On encounter, he was already redirected and pacified. He is oriented to person and knows he is in a hospital. Denies chest pain or SOB. 03/29: Chest CT showed progression of pneumonia likely post-obstructive with a possible endobronchial tumor. This morning, patient is saturating well on BIPAP. He is oriented to person but says he is in [facility]. Consulted pulm onology. Attempts have been made to call his DPOA/ but she is unreachable at this time. He remains guarded given the progression of his pneumonia. 03/30: Patient continues to have waxing and waning episodes of confusion. This morning, he is oriented to person and knows he is in a hospital. He is saturating well on nasal cannul. He says his SOB has improved today. Discussed with pulm who is planning to do bronchoscopy on Tuesday or Tuesday. Discussed with oncology who has recommended with MRI of the brain to rule out mets. Still unable to get hold of patient's fiance. APS has been involved. 03/31: He is saturating well on room air. He says his SOB is better from yesterday. His fianceNeha is here on bedside and was updated about labs and finding of endobronchial mass and became upset and tearful. Patient is oriented to person, place and situation this morning. Discussed his code status in length. He expressed it makes him upset talking about these things. He expressed he does not want to be intubated and does not want defibrillation or chest compressions if he goes into cardiac arrest. His fiance became upset about this. This provider asked him to elaborate on this and he is deemed competent at this particular encounter to make the decision that he is a DNR/DNI. He also expr essed he wants his fianceNeha to be his surrogate decision maker if he is unable to make decisions. He has a step grandson but says he does not want him to be the surrogate decision maker. He is unequivocal about proceeding with bronchoscopy and need for temporary intubation for such procedure but expressed he would not want to pursue any major surgery on his chest if he does have cancer. 04/01: Patient appears more lethargic today but is arousable but not able to maintain a conversation. Per staff, he was awake most of the night. He is saturating well on BIPAP. His fiance expressed she is upset that he "does not want to fight to stay alive". 04/02: No acute event overnight. Discussed with patient and fiance on bedside again. He affirms that he is a DNR/DNI. Discussed possible cancer treatment options if the mass turned out to be malignant and patient expressed he does not want to pursue any surgery or chemotherapy. When asked why he would not want to, he expressed he does not want the burden of the treatments and does not want to burden his fiance as well of getting him thru these treatments. He now expressed he does not want to pursue bronchoscopy. Discussed hospice transition in length with patient and fiance. Remington prefers inpatient hospice as she says she cannot handle and deal with all these issues at home with him. Fidaisy expressed she wants his grandson notified about what's happening. We don't have any form of contact of his grandson at this time, will have convention planner help with this. Patient did express he does not want to have any other person as the s urrogate decision maker and says his fiance (Neha) is his sole surrogate decision-maker. Reason For Visit: COMMUNITY ACQUIRED PNEUMONIA Physical Exam Vital Signs: Temp Pulse Resp BP Pulse Ox 97.5 F 108 H 20 124/70 99 04/02/19 09:28 04/02/19 09:28 04/02/19 09:28 04/02/19 09:35 04/02/19 09:28 Intake & Output 04/01/19 04/02/19 04/03/19 06:59 06:59 06:59 Intake Total 1900 2390 350 Output Total 75 225 Balance 1825 2165 350 Weight 175 lb 0.752 oz 170 lb 3.15 oz General appearance: PRESENT: mild distress, well-developed Head exam: PRESENT: atraumatic, normocephalic Eye exam: PRESENT: conjunctiva pink, EOMI, PERRLA. ABSENT: scleral icterus Ear exam: PRESENT: normal external ear exam Neck exam: ABSENT: carotid bruit, JVD, lymphadenopathy, thyromegaly Respiratory exam: PRESENT: decreased breath sounds, rales, rhonchi. ABSENT: wheezes Cardiovascular exam: PRESENT: RRR. ABSENT: diastolic murmur, rubs, systolic murmur Pulses: PRESENT: normal dorsalis pedis pul GI/Abdominal exam: PRESENT: normal bowel sounds, soft. ABSENT: distended, guarding, mass, organolmegaly, rebound, tenderness Rectal exam: PRESENT: deferred Neurological exam: PRESENT: alert, awake, oriented to person, oriented to place, oriented to situation, CN II-XII grossly intact. ABSENT: motor sensory deficit Results Laboratory Results: 04/02/19 10:52 04/02/19 10:52 04/02/19 04/02/19 10:52 10:52 WBC 18.1 H RBC 4.02 L Hgb 9.9 L Hct 31.2 L MCV 78 L MCH 24.5 L MCHC 31.6 L RDW 17.4 H Plt Count 417 Seg Neutrophils % 86.2 H Lymphocytes % 5.4 L Monocytes % 7.7 Eosinophils % 0.5 Basophils % 0.2 Absolute Neutrophils 15.6 H Absolute Lymphocytes 1.0 Absolute Monocytes 1.4 Absolute Eosinophils 0.1 Absolute Basophils 0.0 Sodium 139.4 Potassium 3.8 Chloride 102 Carbon Dioxide 29 Anion Gap 8 BUN 19 Creatinine 0.67 Est GFR ( Amer) > 60 Est GFR (Non-Af Amer) > 60 Glucose 110 Calcium 8.5 Magnesium 2.1 03/26/19 03/26/19 03/28/19 21:30 21:30 06:57 Creatine Kinase 556 H 208 H Troponin I 0.062 03/29/19 03/30/19 06:50 05:45 Creatine Kinase 102 70 Troponin I Impressions: Shoulder X-Ray 03/26/19 21:05 IMPRESSION: 1. No acute findings. Cervical Spine CT 03/26/19 21:47 IMPRESSION: 1. No acute intracranial hemorrhage. 2. No acute fracture of the cervical spine. Thoracic Spine CT 03/26/19 21:47 IMPRESSION: No acute compression fracture of the thoracic spine. Abdomen/Pelvis CT 03/26/19 22:31 IMPRESSION: 1. Hepatic steatosis. Correlate with lab values. 2. Groundglass opacity and consolidation in the left lung base. Consider chest CT scan for complete evaluation. 3. Small pericardial effusion. 4. 11.0 mm solid pulmonary nodule. Consider a non-contrast Chest CT at 3 months, a PET/CT, or tissue sampling. Reference: Radiology. 2017; 284(1):228-43. Chest CT 03/28/19 00:00 IMPRESSION: Since the chest film on 03/26/2019, patient has collapse the left lung. There is now diffuse left lung pneumonia with parapneumonic pleural effusion. Findings are worrisome for postobstructive pneumonia from endobronchial tumor or hilar mass. Mediastinal adenopathy Head CT 03/30/19 00:00 IMPRESSION: No enhancing lesions.No hemorrhage.Similar encephalomalacia- hypodensity in the right temporoparietal region. EVIDENCE OF ACUTE STROKE: NO. Chest X-Ray 04/02/19 00:00 IMPRESSION: Left pleural effusion. Airspace disease in the left lower lobe and possibly the lingula. There does appear to be slight improvement since the earlier study. Assessment and Plan - Diagnosis (1) Pneumonia Is this a current diagnosis for this admission?: Yes Plan: Post-obstructive. Chest CT showed progression of pneumonia while on Rocephin and Azithromycin. Antibiotics were switched to vancomycin and Zosyn yesterday. Mucomyst was also added. Continue scheduled breathing treatments. Pulmonology has been consulted for bronchoscopy. On vancomycin and Zosyn. (2) Endobronchial mass Is this a current diagnosis for this admission?: Yes Plan: Discussed with pulm who is planning to do bronchoscopy on Tuesday or Tuesday. Discussed with oncology who has recommended with MRI of the brain to rule out mets. Still unable to get hold of patient's . APS has been involved. 03/31: He is saturating well on room air. He says his SOB is better from yesterday. His fianceNeha is here on bedside and was updated about labs and finding of endobronchial mass and became upset and tearful. Patient is oriented to person, place and situation this morning. Discussed his code status in length. He expressed it makes him upset talking about these things. He expressed he does not want to be intubated and does not want defibrillation or chest compressions if he goes into cardiac arrest. This provider asked him to elaborate on this and is deemed competent at this particular encounter to make the decision that he is a DNR/DNI. He also expressed he wants his fianceNeha to be his surrogate decision maker if he is unable to make decisions. He has a step grandson but says he does not want him to be the surrogate decision maker. He is unequivocal about proceeding with bronchoscopy and need for temporary in tubation for such procedure but expressed he would not want to pursue any major surgery on his chest if he does have cancer. 04/02: Discussed with patient and fiance on bedside again. He affirms that he is a DNR/DNI. Discussed possible cancer treatment options if the mass turned out to be malignant and patient expressed he does not want to pursue any surgery or chemotherapy. When asked why he would not want to, he expressed he does not want the burden of the treatments and does not want to burden his fiance as well of getting him thru these treatments. He now expressed he does not want to pursue bronchoscopy. Discussed hospice transition in length with patient and remington. Remington prefers inpatient hospice as she says she cannot handle and deal with all these issues at home with him. Remington expressed she wants his grandson notified about what's happening. We don't have any form of contact of his grandson at this time, will have convention planner help with this. Patient did express he does not want to have any other person as the surrogate decision maker and says his fidaisy (Neha) is his sole surrogate decision-maker. (3) Acute delirium Is this a current diagnosis for this admission?: Yes Plan: Secondary to pneumonia. (4) Elevated LFTs Is this a current diagnosis for this admission?: Yes Plan: Patient is noted to have mildly elevated LFTs and hepatic steatosis on his CT scan. Hepatitis panel negative. Elevated liver enzymes are also concerning for possible metastatic disease in the setting of a newly diagnosed endobronchial mass. Oncology following. - Time Time Spent with patient: 35 or more minutes
[2019-04-03] MEDS: TEMAZEPAM 15 MG CAPSULE PO PRN
[2019-04-03] MEDS: LEVALBUTEROL HCL NEB 1.25 MG/3 ML AMPUL NEB SCH ×4 (02:00→20:31)
[2019-04-03] MEDS: IPRATROPIUM BROMIDE 0.02% NEB 0.5 MG/2.5 ML AMPUL NEB SCH ×4 (02:00→20:31)
[2019-04-03] MEDS: ACETYLCYSTEINE 10% NEB 400 MG/4 ML VIAL NEB SCH ×4 (02:00→20:31)
[2019-04-03] MEDS: NORMAL SALINE 1000 ML 1,000 ML IV PRN ×2 (04:46→21:52)
[2019-04-03] MEDS: PIPERACILLIN SODIUM/TAZOBACTAM 3.375 GM in NORMAL SALINE 100 ML IV SCH ×5 (05:02→17:40)
[2019-04-03] MEDS: VANCOMYCIN HCL 750 MG in DEXTROSE 5%-WATER 250 ML IV SCH ×3 (05:03→21:47)
[2019-04-03] MEDS: METOPROLOL TARTRATE 25 MG TABLET PO SCH ×2 (09:08→21:46)
[2019-04-03] MEDS: FAMOTIDINE 20 MG TABLET PO SCH ×2 (09:09→21:47)
[2019-04-03] MEDS: DOCUSATE SODIUM 100 MG CAPSULE PO SCH ×2 (09:09→17:23)
[2019-04-03] MEDS: FONDAPARINUX SODIUM INJ 2.5 MG/0.5 ML DISP.SYRIN SUBCUT SCH (09:10)
[2019-04-03] MEDS: BUDESONIDE NEB 0.5 MG/2 ML AMPUL NEB SCH ×2 (09:24→20:31)
[2019-04-03] MEDS ORDERED: ASPIRIN 81 MG TABLET, CHEWABLE PO SCH (10:00)
[2019-04-03 10:06] LABS: ABSOLUTE EOSINOPHILS # (AUTO) 0.1 10^3/uL (0.0-0.6); ABSOLUTE MONOCYTES (AUTO) 1.1 10^3/uL (0.1-1.4); ABSOLUTE NEUT (AUTO) 13.9 10^3/uL (1.7-8.2); BASOPHILS % (AUTO) 0.1 % (0-2); EOSINOPHILS % (AUTO) 0.9 % (0-6); HEMATOCRIT 25.4 % (37.9-51.0); LYMPHOCYTES % (AUTO) 6.4 % (13-45); MEAN CORPUSCULAR HGB CONC 31.6 g/dL (32.0-36.0); MEAN CORPUSCULAR VOLUME 76 fl (80-97); MONOCYTES % (AUTO) 6.8 % (3-13); PLATELET COUNT 534 10^3/uL (150-450); RED BLOOD COUNT 3.34 10^6/uL (4.35-5.55); RED CELL DISTRIBUTION WIDTH 17.4 % (11.5-14.0); SEGMENTED NEUTROPHILS % (AUTO) 85.8 % (42-78); TOTAL CELLS COUNTED % (AUTO) 100 %; WHITE BLOOD COUNT 16.1 10^3/uL (4.0-10.5)
[2019-04-03 10:39] LABS: ALANINE AMINOTRANSFERASE 73 U/L (21-72); ALBUMIN 2.2 g/dL (3.5-5.0); ALKALINE PHOSPHATASE 517 U/L (38-126); ANION GAP 8 (5-19); ASPARTATE AMINO TRANSFERASE 39 U/L (17-59); BILIRUBIN,TOTAL 1.2 mg/dL (0.2-1.3); BLOOD UREA NITROGEN 19 mg/dL (7-20); CALCIUM 8.5 mg/dL (8.4-10.2); CARBON DIOXIDE 26 mmol/L (22-30); CHLORIDE 104 mmol/L (98-107); GLUCOSE 107 mg/dL (75-110); POTASSIUM 3.6 mmol/L (3.6-5.0); SODIUM 138.1 mmol/L (137-145); TOTAL PROTEIN 4.9 g/dL (6.3-8.2)
--- NOTE | 2019-04-03 14:40 | PDOC PROGRESS REPORT ---
Subjective Progress Note for:: 04/03/19 Subjective:: This is a 73 yr old male with a PMH of HTN and COPD who presented with productive cough and SOB. He was found to have left sided pneumonia and lactic acidosis on admission. 03/28: No acute event overnight. 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 He had waxing and waning episodes of confusion per RN and patient reportedly was asking where he is. Also had an episode where he expressed he needs "a box to poop". On encounter, he was already redirected and pacified. He is oriented to person and knows he is in a hospital. Denies chest pain or SOB. 03/29: Chest CT showed progression of pneumonia likely post-obstructive with a possible endobronchial tumor. This morning, patient is saturating well on BIPAP. He is oriented to person but says he is in [facility]. Consulted pul monology. Attempts have been made to call his DPOA/ but she is unreachable at this time. He remains guarded given the progression of his pneumonia. 03/30: Patient continues to have waxing and waning episodes of confusion. This morning, he is oriented to person and knows he is in a hospital. He is saturating well on nasal cannul. He says his SOB has improved today. Discussed with pulm who is planning to do bronchoscopy on Tuesday or Tuesday. Discussed with oncology who has recommended with MRI of the brain to rule out mets. Still unable to get hold of patient's fiance. APS has been involved. 03/31: He is saturating well on room air. He says his SOB is better from yesterday. His fianceNeha is here on bedside and was updated about labs and finding of endobronchial mass and became upset and tearful. Patient is oriented to person, place and situation this morning. Discussed his code status in length. He expressed it makes him upset talking about these things. He expressed he does not want to be intubated and does not want defibrillation or chest compressions if he goes into cardiac arrest. His fiance became upset about this. This provider asked him to elaborate on this and he is deemed competent at this particular encounter to make the decision that he is a DNR/DNI. He also exp ressed he wants his fianceNeha to be his surrogate decision maker if he is unable to make decisions. He has a step grandson but says he does not want him to be the surrogate decision maker. He is unequivocal about proceeding with bronchoscopy and need for temporary intubation for such procedure but expressed he would not want to pursue any major surgery on his chest if he does have cancer. 04/01: Patient appears more lethargic today but is arousable but not able to maintain a conversation. Per staff, he was awake most of the night. He is saturating well on BIPAP. His fiance expressed she is upset that he "does not want to fight to stay alive". 04/02: No acute event overnight. Discussed with patient and fiance on bedside again. He affirms that he is a DNR/DNI. Discussed possible cancer treatment options if the mass turned out to be malignant and patient expressed he does not want to pursue any surgery or chemotherapy. When asked why he would not want to, he expressed he does not want the burden of the treatments and does not want to burden his fiance as well of getting him thru these treatments. He now expressed he does not want to pursue bronchoscopy. Discussed hospice transition in length with patient and fiance. [place] prefers inpatient hospice as she says she cannot handle and deal with all these issues at home with him. Fidaisy expressed she wants his grandson notified about what's happening. We don't have any form of contact of his grandson at this time, will have city planner help with this. Patient did express he does not want to have any other person as the surrogate decision maker and says his fiance (Neha) is his sole surrogate decision-maker. 04/03/2019-patient is still on BiPAP is a DNR/DNI. Patient want to opt 1 observation because he is trying to pull off the BiPAP and try to pull off the IV lines. Dr. Hinkle has a long discussion with the family members yesterday patient does not want any bronchoscopy. For possible cancer he does not want a [place] surgery or chemotherapy. Hospice referral was made. Reason For Visit: COMMUNITY ACQUIRED PNEUMONIA Physical Exam Vital Signs: Temp Pulse Resp BP Pulse Ox 98.4 F 100 27 H 135/52 H 100 04/03/19 11:44 04/03/19 14:13 04/03/19 14:13 04/03/19 11:44 04/03/19 14:13 Intake & Output 04/02/19 04/03/19 04/04/19 06:59 06:59 06:59 Intake Total 2390 2880 Output Total 225 75 Balance 2165 2805 Weight 77.2 kg 80.8 kg General appearance: PRESENT: no acute distress, other - BiPAP in the bed denies any complaints. Head exam: PRESENT: atraumatic Eye exam: PRESENT: PERRLA Ear exam: PRESENT: normal external ear exam Mouth exam: PRESENT: moist, tongue midline Teeth exam: PRESENT: poor dentation Neck exam: ABSENT: carotid bruit, JVD, lymphadenopathy, thyromegaly Respiratory exam: PRESENT: decreased breath sounds Cardiovascular exam: PRESENT: RRR. ABSENT: diastolic murmur, rubs, systolic murmur Vascular exam: PRESENT: normal capillary refill GI/Abdominal exam: PRESENT: normal bowel sounds, soft. ABSENT: distended, guarding, mass, organolmegaly, rebound, tenderness Rectal exam: PRESENT: deferred Extremities exam: PRESENT: full ROM. ABSENT: calf tenderness, clubbing, pedal edema Neurological exam: PRESENT: alert, awake, oriented to person, oriented to place, oriented to time, oriented to situation, CN II-XII grossly intact. ABSENT: motor sensory deficit Results Laboratory Results: 04/03/19 09:45 04/03/19 09:45 04/03/19 04/03/19 09:45 09:45 WBC 16.1 H RBC 3.34 L Hgb 8.0 L Hct 25.4 L MCV 76 L MCH 24.0 L MCHC 31.6 L RDW 17.4 H Plt Count 534 H Seg Neutrophils % 85.8 H Lymphocytes % 6.4 L Monocytes % 6.8 Eosinophils % 0.9 Basophils % 0.1 Absolute Neutrophils 13.9 H Absolute Lymphocytes 1.0 Absolute Monocytes 1.1 Absolute Eosinophils 0.1 Absolute Basophils 0.0 Sodium 138.1 Potassium 3.6 Chloride 104 Carbon Dioxide 26 Anion Gap 8 BUN 19 Creatinine 0.78 Est GFR ( Amer) > 60 Est GFR (Non-Af Amer) > 60 Glucose 107 Calcium 8.5 Magnesium 2.2 Total Bilirubin 1.2 AST 39 ALT 73 H Alkaline Phosphatase 517 H Total Protein 4.9 L Albumin 2.2 L 03/26/19 03/26/19 03/28/19 21:30 21:30 06:57 Creatine Kinase 556 H 208 H Troponin I 0.062 03/29/19 03/30/19 06:50 05:45 Creatine Kinase 102 70 Troponin I Impressions: Shoulder X-Ray 03/26/19 21:05 IMPRESSION: 1. No acute findings. Cervical Spine CT 03/26/19 21:47 IMPRESSION: 1. No acute intracranial hemorrhage. 2. No acute fracture of the cervical spine. Thoracic Spine CT 03/26/19 21:47 IMPRESSION: No acute compression fracture of the thoracic spine. Abdomen/Pelvis CT 03/26/19 22:31 IMPRESSION: 1. Hepatic steatosis. Correlate with lab values. 2. Groundglass opacity and consolidation in the left lung base. Consider chest CT scan for complete evaluation. 3. Small pericardial effusion. 4. 11.0 mm solid pulmonary nodule. Consider a non-contrast Chest CT at 3 months, a PET/CT, or tissue sampling. Reference: Radiology. 2017; 284(1):228-43. Chest CT 03/28/19 00:00 IMPRESSION: Since the chest film on 03/26/2019, patient has collapse the left lung. There is now diffuse left lung pneumonia with parapneumonic pleural effusion. Findings are worrisome for postobstructive pneumonia from endobronchial tumor or hilar mass. Mediastinal adenopathy Head CT 03/30/19 00:00 IMPRESSION: No enhancing lesions.No hemorrhage.Similar encephalomalacia- hypodensity in the right temporoparietal region. EVIDENCE OF ACUTE STROKE: NO. Chest X-Ray 04/02/19 00:00 IMPRESSION: Left pleural effusion. Airspace disease in the left lower lobe and possibly the lingula. There does appear to be slight improvement since the earlier study. Assessment and Plan - Diagnosis (1) Pneumonia Qualifiers: Pneumonia type: due to unspecified organism Laterality: left Lung locat ion: lower lobe of lung Qualified Code(s): J18.1 - Lobar pneumonia, unspecified organism Is this a current diagnosis for this admission?: Yes Plan: Post-obstructive. Chest CT showed progression of pneumonia while on Rocephin and Azithromycin. Antibiotics were switched to vancomycin and Zosyn yesterday. Mucomyst was also added. Continue scheduled breathing treatments. Pulmonology has been consulted for bronchoscopy. On vancomycin and Zosyn. 04/03/2019-patient has postobstructive pneumonia presently on IV vancomycin and Zosyn. Pulmonary consult was requested bronchoscopy but the patient does not want any bronchoscopy. Hospice referral was made. (2) Endobronchial mass Is this a current diagnosis for this admission?: Yes Plan: Discussed with pulm who is planning to do bronchoscopy on Tuesday or Tuesday. Discussed with oncology who has recommended with MRI of the brain to rule out mets. Still unable to get hold of patient's . APS has been involved. 03/31: He is saturating well on room air. He says his SOB is better from yesterday. His fianceNeha is here on bedside and was updated about labs and finding of endobronchial mass and became upset and tearful. Patient is oriented to person, place and situation this morning. Discussed his code status in length. He expressed it makes him upset talking about these things. He expressed he does not want to be intubated and does not want defibrillation or chest com pressions if he goes into cardiac arrest. This provider asked him to elaborate on this and is deemed competent at this particular encounter to make the decision that he is a DNR/DNI. He also expressed he wants his Neha macedo to be his surrogate decision maker if he is unable to make decisions. He has a step grandson but says he does not want him to be the surrogate decision maker. He is unequivocal about proceeding with bronchoscopy and need for temporary intubation for such procedure but expressed he would not want to pursue any major surgery on his chest if he does have cancer. 04/02: Discussed with patient and fiance on bedside again. He affirms that he is a DNR/DNI. Discussed possible cancer treatment options if the mass turned out to be malignant and patient expressed he does not want to pursue any surgery or chemotherapy. When asked why he would not want to, he expressed he does not want the burden of the treatments and does not want to burden his fiance as well of getting him thru these treatments. He now expressed he does not want to pursue bronchoscopy. Discussed hospice transition in length with patient and fiance. [place] prefers inpatient hospice as she says she cannot handle and deal with all these issues at home with him. Fidaisy expressed she wants his grandson notified about what's happening. We don't have any form of contact of his grandson at this time, will have city planner help with this. Patient did express he does not want to have any other person as the surrogate decision maker and says his fiance (Neha) is his sole surrogate decision-maker. 04/03/2019-patient is DNR/DNI. Found to have endobronchial mass. With postobstructive pneumonia. Presently on IV vancomycin and Zosyn. Patient does not want any bronchoscopy or chemotherapy. As per the patient's request hospice referral was made. Patient is DNR/DNI. Patient's megan Solomon is the sole surrogate decision maker. (3) Acute delirium Is this a current diagnosis for this admission?: Yes Plan: Secondary to pneumonia. 04/03/2019-patient is alert and awake communicating well. Acute delirium secondary to pneumonia is resolving. - Time Time Spent with patient: 15-24 minutes Medications reviewed and adjusted accordingly: Yes Anticipated discharge: Hospice
--- NOTE | 2019-04-03 17:16 | Progress Note ---
Provider Note Provider Note: ID Telephone Consultation Note Asked to review patient's chart by Pharmacy. Pt not seen or examined. Pt is a 73 year old man with HTN and COPD who presented with productive cough with purulent sputum and PALAFOX on 03/27/19. He was found to have on CT scan to have changes that are suspected to be malignant - mediastinal LAD and diffuse L lung pneumonia and parapneumonic effusion with an appearance worrisome for postobstructive pneumonia from endobronchial tumor or hilar mass. The patient and his fiancee, who he has asked to be his medical decision maker, have decided to decline bronchoscopy and pursue hospice options. Currently, he is receiving vancomycin and Zosyn empirically. Impression/Recommendation Organisms most often implicated in post-obstructive pneumonia include streptococci, anaerobes, and in the elderly or chronically ill enteric Gram negatives also colonize the airways. MRSA is not likely to be involved in a patient presenting from the community who does not have recent IV antibiotic administration history or frequent nosocomial contact to predispose him. Pseudomonas aeruginosa is also unlikely in absence of recent antibiotic exposure and structural lung disease, such as bronchiectasis. Unasyn would be sufficient or PO Augmentin. Zosyn has a similar spectrum of activity compared to Unasyn and could be used, although antipseudomonal activity is not needed per se. Would discontinue IV vancomycin. Duration of antibiotics: - Resolution of a post-obstructive pneumonia is not likely to be achieved with antibiotic administration alone in absence of a means to relieve the obstruction (e.g. brachytherapy, stents, etc). Optimal duration of therapy is unknown. - At this point, he has already received 7 days of antibiotics (Rocephin/azithromycin -> vancomycin 03/28 to present and Zosyn from 03/29 to present), and there is no established lung abscess on CT scan. Would aim for completing 10-14 days in total. Per notes, the patient appears to have expressed a consistent desire to pursue hospice or pallative care and the goal should be to maximize his comfort in the face of an unresolvable problem. Antibiotics also have side effects, including GI upset or diarrhea, and longer is not necessarily going to bring about greater benefit. Milo Keane MD [facility] Infectious Diseases pager [phone]
[2019-04-03] MEDS: MORPHINE SULFATE 10 MG/ML INJ IV PRN (17:40)
[2019-04-04] MEDS: PIPERACILLIN SODIUM/TAZOBACTAM 3.375 GM in NORMAL SALINE 100 ML IV SCH ×2 (01:04→05:47)
[2019-04-04] MEDS: MORPHINE SULFATE 10 MG/ML INJ IV PRN ×4 (01:11→21:31)
[2019-04-04] MEDS: IPRATROPIUM BROMIDE 0.02% NEB 0.5 MG/2.5 ML AMPUL NEB SCH ×2 (02:06→08:26)
[2019-04-04] MEDS: ACETYLCYSTEINE 10% NEB 400 MG/4 ML VIAL NEB SCH ×4 (02:06→20:29)
[2019-04-04] MEDS: LEVALBUTEROL HCL NEB 1.25 MG/3 ML AMPUL NEB SCH ×4 (02:06→20:29)
[2019-04-04] MEDS: VANCOMYCIN HCL 750 MG in DEXTROSE 5%-WATER 250 ML IV SCH (06:42)
[2019-04-04 06:47] LABS: VANCOMYCIN,TROUGH 27.4 ug/mL (5.0-20.0)
[2019-04-04 08:04] LABS: ABSOLUTE EOSINOPHILS # (AUTO) 0.1 10^3/uL (0.0-0.6); ABSOLUTE MONOCYTES (AUTO) 1.1 10^3/uL (0.1-1.4); ABSOLUTE NEUT (AUTO) 15.6 10^3/uL (1.7-8.2); BASOPHILS % (AUTO) 0.2 % (0-2); EOSINOPHILS % (AUTO) 0.7 % (0-6); HEMATOCRIT 25.7 % (37.9-51.0); HEMOGLOBIN 8.2 g/dL (13.5-17.0); LYMPHOCYTES % (AUTO) 5.8 % (13-45); MEAN CORPUSCULAR HEMOGLOBIN 24.4 pg (27.0-33.4); MEAN CORPUSCULAR HGB CONC 31.8 g/dL (32.0-36.0); MEAN CORPUSCULAR VOLUME 77 fl (80-97); MONOCYTES % (AUTO) 6.2 % (3-13); PLATELET COUNT 556 10^3/uL (150-450); RED BLOOD COUNT 3.34 10^6/uL (4.35-5.55); RED CELL DISTRIBUTION WIDTH 17.9 % (11.5-14.0); SEGMENTED NEUTROPHILS % (AUTO) 87.1 % (42-78); TOTAL CELLS COUNTED % (AUTO) 100 %; WHITE BLOOD COUNT 17.9 10^3/uL (4.0-10.5)
[2019-04-04 08:13] LABS: ALANINE AMINOTRANSFERASE 71 U/L (21-72); ALBUMIN 2.2 g/dL (3.5-5.0); ALKALINE PHOSPHATASE 552 U/L (38-126); ANION GAP 11 (5-19); ASPARTATE AMINO TRANSFERASE 37 U/L (17-59); BILIRUBIN,DIRECT 1.5 mg/dL (0.0-0.4); BILIRUBIN,TOTAL 1.7 mg/dL (0.2-1.3); BLOOD UREA NITROGEN 23 mg/dL (7-20); CALCIUM 8.7 mg/dL (8.4-10.2); CARBON DIOXIDE 24 mmol/L (22-30); CHLORIDE 105 mmol/L (98-107); GLUCOSE 118 mg/dL (75-110); POTASSIUM 3.6 mmol/L (3.6-5.0); SODIUM 139.9 mmol/L (137-145); TOTAL PROTEIN 5.2 g/dL (6.3-8.2)
[2019-04-04] MEDS: BUDESONIDE NEB 0.5 MG/2 ML AMPUL NEB SCH ×2 (08:26→20:29)
--- NOTE | 2019-04-04 08:38 | PDOC PROGRESS REPORT ---
Subjective Progress Note for:: 04/04/19 Subjective:: Patient only on [place] oxygen. He is very sleepy and only opens his eyes briefly to tactile stimulation. He does not speak. No family is at bedside. Reason For Visit: COMMUNITY ACQUIRED PNEUMONIA Physical Exam Vital Signs: Temp Pulse Resp BP Pulse Ox 98.2 F 95 16 134/57 H 99 04/04/19 07:18 04/04/19 07:18 04/04/19 07:18 04/04/19 07:18 04/04/19 07:18 Intake & Output 04/03/19 04/04/19 04/05/19 06:59 06:59 06:59 Intake Total 2880 2070 Output Total 75 Balance 2805 2070 Weight 80.8 kg 81.5 kg General appearance: PRESENT: no acute distress, well-developed, well-nourished GI/Abdominal exam: PRESENT: soft. ABSENT: tenderness Extremities exam: PRESENT: +1 edema Neurological exam: ABSENT: alert Focused psych exam: ABSENT: restlessness Skin exam: PRESENT: normal color Results Laboratory Results: 04/04/19 06:03 04/04/19 06:03 04/03/19 04/03/19 04/04/19 09:45 09:45 06:03 WBC 16.1 H RBC 3.34 L Hgb 8.0 L Hct 25.4 L MCV 76 L MCH 24.0 L MCHC 31.6 L RDW 17.4 H Plt Count 534 H Seg Neutrophils % 85.8 H Lymphocytes % 6.4 L Monocytes % 6.8 Eosinophils % 0.9 Basophils % 0.1 Absolute Neutrophils 13.9 H Absolute Lymphocytes 1.0 Absolute Monocytes 1.1 Absolute Eosinophils 0.1 Absolute Basophils 0.0 Sodium 138.1 Potassium 3.6 Chloride 104 Carbon Dioxide 26 Anion Gap 8 BUN 19 Creatinine 0.78 0.96 Est GFR ( Amer) > 60 > 60 Est GFR (Non-Af Amer) > 60 > 60 Glucose 107 Calcium 8.5 Magnesium 2.2 Total Bilirubin 1.2 AST 39 ALT 73 H Alkaline Phosphatase 517 H Total Protein 4.9 L Albumin 2.2 L 04/04/19 04/04/19 06:03 06:03 WBC 17.9 H RBC 3.34 L Hgb 8.2 L Hct 25.7 L MCV 77 L MCH 24.4 L MCHC 31.8 L RDW 17.9 H Plt Count 556 H Seg Neutrophils % 87.1 H Lymphocytes % 5.8 L Monocytes % 6.2 Eosinophils % 0.7 Basophils % 0.2 Absolute Neutrophils 15.6 H Absolute Lymphocytes 1.0 Absolute Monocytes 1.1 Absolute Eosinophils 0.1 Absolute Basophils 0.0 Sodium 139.9 Potassium 3.6 Chloride 105 Carbon Dioxide 24 Anion Gap 11 BUN 23 H Creatinine 0.96 Est GFR ( Amer) > 60 Est GFR (Non-Af Amer) > 60 Glucose 118 H Calcium 8.7 Magnesium 2.3 Total Bilirubin 1.7 H AST 37 ALT 71 Alkaline Phosphatase 552 H Total Protein 5.2 L Albumin 2.2 L 03/26/19 03/26/19 03/28/19 21:30 21:30 06:57 Creatine Kinase 556 H 208 H Troponin I 0.062 03/29/19 03/30/19 06:50 05:45 Creatine Kinase 102 70 Troponin I Impressions: Shoulder X-Ray 03/26/19 21:05 IMPRESSION: 1. No acute findings. Cervical Spine CT 03/26/19 21:47 IMPRESSION: 1. No acute intracranial hemorrhage. 2. No acute fracture of the cervical spine. Thoracic Spine CT 03/26/19 21:47 IMPRESSION: No acute compression fracture of the thoracic spine. Abdomen/Pelvis CT 03/26/19 22:31 IMPRESSION: 1. Hepatic steatosis. Correlate with lab values. 2. Groundglass opacity and consolidation in the left lung base. Consider chest CT scan for complete evaluation. 3. Small pericardial effusion. 4. 11.0 mm solid pulmonary nodule. Consider a non-contrast Chest CT at 3 months, a PET/CT, or tissue sampling. Reference: Radiology. 2017; 284(1):228-43. Chest CT 03/28/19 00:00 IMPRESSION: Since the chest film on 03/26/2019, patient has collapse the left lung. There is now diffuse left lung pneumonia with parapneumonic pleural effusion. Findings are worrisome for postobstructive pneumonia from endobronchial tumor or hilar mass. Mediastinal adenopathy Head CT 03/30/19 00:00 IMPRESSION: No enhancing lesions.No hemorrhage.Similar encephalomalacia- hypodensity in the right temporoparietal region. EVIDENCE OF ACUTE STROKE: NO. Chest X-Ray 04/02/19 00:00 IMPRESSION: Left pleural effusion. Airspace disease in the left lower lobe and possibly the lingula. There does appear to be slight improvement since the earlier study. Assessment & Plan - Diagnosis (1) Pulmonary nodule Is this a current diagnosis for this admission?: Yes (2) Acute delirium Is this a current diagnosis for this admission?: Yes (3) Leukocytosis Qualifiers: Leukocytosis type: unspecified Qualified Code(s): D72.829 - Elevated white blood cell count, unspecified Is this a current diagnosis for this admission?: Yes - Plan Summary Plan Summary: According to notes and to his nurse, he is [facility]. He has declined all intervention and is now DNR with comfort measures. I will sign off, please let me know if I can be of any assistance in the transition to [facility].
--- NOTE | 2019-04-04 10:29 | PDOC PROGRESS REPORT ---
Subjective Progress Note for:: 04/04/19 Subjective:: This is a 73 yr old male with a PMH of HTN and COPD who presented with productive cough and SOB. He was found to have left sided pneumonia and lactic acidosis on admission. 03/28: No acute event overnight. However, this chief cruiser. He had waxing and waning episodes of confusion per RN and patient reportedly was asking where he is. Also had an episode where he expressed he needs "a box to poop". On encounter, he was already redirected and pacified. He is oriented to person and knows he is in a hospital. Denies chest pain or SOB. 03/29: Chest CT showed progression of pneumonia likely post-obstructive with a possible endobronchial tumor. This morning, patient is saturating well on BIPAP. He is oriented to person but says he is in [facility]. Consulted pul monology. Attempts have been made to call his DPOA/ but she is unreachable at this time. He remains guarded given the progression of his pneumonia. 03/30: Patient continues to have waxing and waning episodes of confusion. This morning, he is oriented to person and knows he is in a hospital. He is saturating well on nasal cannul. He says his SOB has improved today. Discussed with pulm who is planning to do bronchoscopy on Tuesday or Tuesday. Discussed with oncology who has recommended with MRI of the brain to rule out mets. Still unable to get hold of patient's fiance. APS has been involved. 03/31: He is saturating well on room air. He says his SOB is better from yesterday. His fianceNeha is here on bedside and was updated about labs and finding of endobronchial mass and became upset and tearful. Patient is oriented to person, place and situation this morning. Discussed his code status in length. He expressed it makes him upset talking about these things. He expressed he does not want to be intubated and does not want defibrillation or chest compressions if he goes into cardiac arrest. His fiance became upset about this. This provider asked him to elaborate on this and he is deemed competent at this particular encounter to make the decision that he is a DNR/DNI. He also exp ressed he wants his fianceNeha to be his surrogate decision maker if he is unable to make decisions. He has a step grandson but says he does not want him to be the surrogate decision maker. He is unequivocal about proceeding with bronchoscopy and need for temporary intubation for such procedure but expressed he would not want to pursue any major surgery on his chest if he does have cancer. 04/01: Patient appears more lethargic today but is arousable but not able to maintain a conversation. Per staff, he was awake most of the night. He is saturating well on BIPAP. His fiance expressed she is upset that he "does not want to fight to stay alive". 04/02: No acute event overnight. Discussed with patient and fiance on bedside again. He affirms that he is a DNR/DNI. Discussed possible cancer treatment options if the mass turned out to be malignant and patient expressed he does not want to pursue any surgery or chemotherapy. When asked why he would not want to, he expressed he does not want the burden of the treatments and does not want to burden his fiance as well of getting him thru these treatments. He now expressed he does not want to pursue bronchoscopy. Discussed hospice transition in length with patient and fiance. [place] prefers inpatient hospice as she says she cannot handle and deal with all these issues at home with him. Fidaisy expressed she wants his grandson notified about what's happening. We don't have any form of contact of his grandson at this time, will have inventory planner help with this. Patient did express he does not want to have any other person as the surrogate decision maker and says his fiance (Neha) is his sole surrogate decision-maker. 04/03/2019-patient is still on BiPAP is a DNR/DNI. Patient want to opt 1 observation because he is trying to pull off the BiPAP and try to pull off the IV lines. Dr. Hinkle has a long discussion with the family members yesterday patient does not want any bronchoscopy. For possible cancer he does not want a [place] surgery or chemotherapy. Hospice referral was made. 04/04/2019-patient is a DNR/DNI and comfort care measures only. In the bed opening his eyes on verbal commands he has a shallow breathing. Overall prognosis poor condition is critical. Waiting for hospice bed. Reason For Visit: COMMUNITY ACQUIRED PNEUMONIA Physical Exam Vital Signs: Temp Pulse Resp BP Pulse Ox 98.2 F 95 16 134/57 H 99 04/04/19 07:18 04/04/19 07:18 04/04/19 07:18 04/04/19 07:18 04/04/19 07:18 Intake & Output 04/03/19 04/04/19 04/05/19 06:59 06:59 06:59 Intake Total 2880 2070 Output Total 75 Balance 2805 2070 Weight 80.8 kg 81.5 kg General appearance: PRESENT: mild distress Head exam: PRESENT: atraumatic Eye exam: PRESENT: PERRLA Mouth exam: PRESENT: moist, tongue midline Neck exam: ABSENT: carotid bruit, JVD, lymphadenopathy, thyromegaly Respiratory exam: PRESENT: other - Patient have shallow breathing's. Cardiovascular exam: PRESENT: tachycardia GI/Abdominal exam: PRESENT: normal bowel sounds, soft. ABSENT: distended, guarding, mass, organolmegaly, rebound, tenderness Rectal exam: PRESENT: deferred Extremities exam: PRESENT: full ROM. ABSENT: calf tenderness, clubbing, pedal edema Neurological exam: PRESENT: alert, awake, oriented to person, oriented to place, oriented to time, oriented to situation, CN II-XII grossly intact. ABSENT: motor sensory deficit Psychiatric exam: PRESENT: other - And received morphine just well ago looks sedated. Results Laboratory Results: 04/04/19 06:03 04/04/19 06:03 04/03/19 04/04/19 04/04/19 09:45 06:03 06:03 WBC 17.9 H RBC 3.34 L Hgb 8.2 L Hct 25.7 L MCV 77 L MCH 24.4 L MCHC 31.8 L RDW 17.9 H Plt Count 556 H Seg Neutrophils % 87.1 H Lymphocytes % 5.8 L Monocytes % 6.2 Eosinophils % 0.7 Basophils % 0.2 Absolute Neutrophils 15.6 H Absolute Lymphocytes 1.0 Absolute Monocytes 1.1 Absolute Eosinophils 0.1 Absolute Basophils 0.0 Sodium 138.1 Potassium 3.6 Chloride 104 Carbon Dioxide 26 Anion Gap 8 BUN 19 Creatinine 0.78 0.96 Est GFR ( Amer) > 60 > 60 Est GFR (Non-Af Amer) > 60 > 60 Glucose 107 Calcium 8.5 Magnesium 2.2 Total Bilirubin 1.2 AST 39 ALT 73 H Alkaline Phosphatase 517 H Total Protein 4.9 L Albumin 2.2 L 04/04/19 06:03 WBC RBC Hgb Hct MCV MCH MCHC RDW Plt Count Seg Neutrophils % Lymphocytes % Monocytes % Eosinophils % Basophils % Absolute Neutrophils Absolute Lymphocytes Absolute Monocytes Absolute Eosinophils Absolute Basophils Sodium 139.9 Potassium 3.6 Chloride 105 Carbon Dioxide 24 Anion Gap 11 BUN 23 H Creatinine 0.96 Est GFR ( Amer) > 60 Est GFR (Non-Af Amer) > 60 Glucose 118 H Calcium 8.7 Magnesium 2.3 Total Bilirubin 1.7 H AST 37 ALT 71 Alkaline Phosphatase 552 H Total Protein 5.2 L Albumin 2.2 L 03/26/19 03/26/19 03/28/19 21:30 21:30 06:57 Creatine Kinase 556 H 208 H Troponin I 0.062 03/29/19 03/30/19 06:50 05:45 Creatine Kinase 102 70 Troponin I Impressions: Shoulder X-Ray 03/26/19 21:05 IMPRESSION: 1. No acute findings. Cervical Spine CT 03/26/19 21:47 IMPRESSION: 1. No acute intracranial hemorrhage. 2. No acute fracture of the cervical spine. Thoracic Spine CT 03/26/19 21:47 IMPRESSION: No acute compression fracture of the thoracic spine. Abdomen/Pelvis CT 03/26/19 22:31 IMPRESSION: 1. Hepatic steatosis. Correlate with lab values. 2. Groundglass opacity and consolidation in the left lung base. Consider chest CT scan for complete evaluation. 3. Small pericardial effusion. 4. 11.0 mm solid pulmonary nodule. Consider a non-contrast Chest CT at 3 months, a PET/CT, or tissue sampling. Reference: Radiology. 2017; 284(1):228-43. Chest CT 03/28/19 00:00 IMPRESSION: Since the chest film on 03/26/2019, patient has collapse the left lung. There is now diffuse left lung pneumonia with parapneumonic pleural effusion. Findings are worrisome for postobstructive pneumonia from endobron chial tumor or hilar mass. Mediastinal adenopathy Head CT 03/30/19 00:00 IMPRESSION: No enhancing lesions.No hemorrhage.Similar encephalomalacia- hypodensity in the right temporoparietal region. EVIDENCE OF ACUTE STROKE: NO. Chest X-Ray 04/02/19 00:00 IMPRESSION: Left pleural effusion. Airspace disease in the left lower lobe and possibly the lingula. There does appear to be slight improvement since the earlier study. Assessment and Plan - Diagnosis (1) Pneumonia Qualifiers: Pneumonia type: due to unspecified organism Laterality: left Lung location: lower lobe of lung Qualified Code(s): J18.1 - Lobar pneumonia, unspecified organism Is this a current diagnosis for this admission?: Yes Plan: Post-obstructive. Chest CT showed progression of pneumonia while on Rocephin and Azithromycin. Antibiotics were switched to vancomycin and Zosyn yesterday. Mucomyst was also added. Continue scheduled breathing treatments. Pulmonology has been consulted for bronchoscopy. On vancomycin and Zosyn. 04/03/2019-patient has postobstructive pneumonia presently on IV vancomycin and Zosyn. Pulmonary consult was requested bronchoscopy but the patient does not want any bronchoscopy. Hospice referral was made. 04/04/2019-patient is getting treatment for postobstructive pneumonia presently is DNR/DNI and comfort care measures only. Plan is to discontinue IV antibiotics. (2) Endobronchial mass Is this a current diagnosis for this admission?: Yes Plan: Discussed with pulm who is planning to do bronchoscopy on Tuesday or Tuesday. Discussed with oncology who has recommended with MRI of the brain to rule out mets. Still unable to get hold of patient's . APS has been involved. 03/31: He is saturating well on room air. He says his SOB is better from yesterday. His fiance Neha is here on bedside and was updated about labs and finding of endobronchial mass and became upset and tearful. Patient is oriented to person, place and situation this morning. Discussed his code status in length. He expressed it makes him upset talking about these things. He expressed he does not want to be intubated and does not want defibrillation or chest compressions if he goes into cardiac arrest. This provider asked him to elaborate on this and is deemed competent at this particular encounter to make the decision that he is a DNR/DNI. He also expressed he wants his fiance, Neha to be his surrogate decision maker if he is unable to make decisions. He has a step grandson but says he does not want him to be the surrogate decision maker. He is unequivocal about proceeding with bronchoscopy and need for temporary intubation for such procedure but expressed he would not want to pursue any major surgery on his chest if he does have cancer. 04/02: Discussed with patient and [place] on bedside again. He affirms that he is a DNR/DNI. Discussed possible cancer treatment options if the mass turned out to be malignant and patient expressed he does not want to pursue any surgery or chemotherapy. When asked why he would not want to, he expressed he does not want the burden of the treatments and does not want to burden his fiance as well of getting him thru these treatments. He now expressed he does not want to pursue bronchoscopy. Discussed hospice transition in length with patient and fidaisy. [place] prefers inpatient hospice as she says she cannot handle and deal with all these issues at home with him. [place] expressed she wants his grandson notified about what's happening. We don't have any form of contact of his grandson at this time, will have inventory planner help with this. Patient did express he does not want to have any other person as the surrogate decision maker and says his [place] (Neha) is his sole surrogate decision-maker. 04/03/2019-patient is DNR/DNI. Found to have endobronchial mass. With postobstructive pneumonia. Presently on IV vancomycin and Zosyn. Patient does not want any bronchoscopy or chemotherapy. As per the patient's request hospice referral was made. Patient is DNR/DNI. Patient's megan Solomon is the sole surrogate decision maker. 04/04/2019-patient is DNR/DNI and on comfort care measures patient refused all interventions. Dr. Beauchamp signed off from the case. (3) Acute delirium Is this a current diagnosis for this admission?: Yes Plan: Secondary to pneumonia. 04/03/2019-patient is alert and awake communicating well. Acute delirium secondary to pneumonia is resolving. - Time Time Spent with patient: 15-24 minutes Medications reviewed and adjusted accordingly: Yes Anticipated discharge: Hospice
[2019-04-04] MEDS: DOCUSATE SODIUM 100 MG CAPSULE PO SCH ×2 (10:37→17:49)
[2019-04-04] MEDS: FAMOTIDINE 20 MG TABLET PO SCH ×2 (10:37→21:32)
[2019-04-04] MEDS: NORMAL SALINE 1000 ML 1,000 ML IV PRN (18:12)
[2019-04-04] MEDS: LORAZEPAM INJ 2 MG/1 ML VIAL IV PRN (23:51)
[2019-04-05] MEDS: MORPHINE SULFATE 10 MG/ML INJ IV PRN ×4 (01:07→17:00)
[2019-04-05] MEDS: LEVALBUTEROL HCL NEB 1.25 MG/3 ML AMPUL NEB SCH ×3 (02:07→13:47)
[2019-04-05] MEDS: ACETYLCYSTEINE 10% NEB 400 MG/4 ML VIAL NEB SCH ×3 (02:07→13:47)
[2019-04-05] MEDS: LORAZEPAM INJ 2 MG/1 ML VIAL IV PRN ×3 (03:58→15:47)
[2019-04-05] MEDS: NORMAL SALINE 1000 ML 1,000 ML IV PRN (08:04)
[2019-04-05] MEDS: BUDESONIDE NEB 0.5 MG/2 ML AMPUL NEB SCH (08:06)
[2019-04-05 08:41] VITALS: BP 143/57
[2019-04-05] MEDS: DOCUSATE SODIUM 100 MG CAPSULE PO SCH (09:09)
[2019-04-05] MEDS: FAMOTIDINE 20 MG TABLET PO SCH (09:09)
--- NOTE | 2019-04-05 10:21 | PDOC PROGRESS REPORT ---
Subjective Progress Note for:: 04/05/19 Subjective:: This is a 73 yr old male with a PMH of HTN and COPD who presented with productive cough and SOB. He was found to have left sided pneumonia and lactic acidosis on admission. 03/28: No acute event overnight. 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 Also had an episode where he expressed he needs "a box to poop". On encounter, he was already redirected and pacified. He is oriented to person and knows he is in a hospital. Denies chest pain or SOB. 03/29: Chest CT showed progression of pneumonia likely post-obstructive with a possible endobronchial tumor. This morning, patient is saturating well on BIPAP. He is oriented to person but says he is in [facility]. Consulted pul monology. Attempts have been made to call his DPOA/ but she is unreachable at this time. He remains guarded given the progression of his pneumonia. 03/30: Patient continues to have waxing and waning episodes of confusion. This morning, he is oriented to person and knows he is in a hospital. He is saturating well on nasal cannul. He says his SOB has improved today. Discussed with pulm who is planning to do bronchoscopy on Tuesday or Tuesday. Discussed with oncology who has recommended with MRI of the brain to rule out mets. Still unable to get hold of patient's fiance. APS has been involved. 03/31: He is saturating well on room air. He says his SOB is better from yesterday. His fianceNeha is here on bedside and was updated about labs and finding of endobronchial mass and became upset and tearful. Patient is oriented to person, place and situation this morning. Discussed his code status in length. He expressed it makes him upset talking about these things. He expressed he does not want to be intubated and does not want defibrillation or chest compressions if he goes into cardiac arrest. His fiance became upset about this. This provider asked him to elaborate on this and he is deemed competent at this particular encounter to make the decision that he is a DNR/DNI. He also exp ressed he wants his fianceNeha to be his surrogate decision maker if he is unable to make decisions. He has a step grandson but says he does not want him to be the surrogate decision maker. He is unequivocal about proceeding with bronchoscopy and need for temporary intubation for such procedure but expressed he would not want to pursue any major surgery on his chest if he does have cancer. 04/01: Patient appears more lethargic today but is arousable but not able to maintain a conversation. Per staff, he was awake most of the night. He is saturating well on BIPAP. His fiance expressed she is upset that he "does not want to fight to stay alive". 04/02: No acute event overnight. Discussed with patient and fiance on bedside again. He affirms that he is a DNR/DNI. Discussed possible cancer treatment options if the mass turned out to be malignant and patient expressed he does not want to pursue any surgery or chemotherapy. When asked why he would not want to, he expressed he does not want the burden of the treatments and does not want to burden his fiance as well of getting him thru these treatments. He now expressed he does not want to pursue bronchoscopy. Discussed hospice transition in length with patient and fiance. [place] prefers inpatient hospice as she says she cannot handle and deal with all these issues at home with him. Fidaisy expressed she wants his grandson notified about what's happening. We don't have any form of contact of his grandson at this time, will have planner chief help with this. Patient did express he does not want to have any other person as the surrogate decision maker and says his fiance (Neha) is his sole surrogate decision-maker. 04/03/2019-patient is still on BiPAP is a DNR/DNI. Patient want to opt 1 observation because he is trying to pull off the BiPAP and try to pull off the IV lines. Dr. Hinkle has a long discussion with the family members yesterday patient does not want any bronchoscopy. For possible cancer he does not want a [place] surgery or chemotherapy. Hospice referral was made. 04/04/2019-patient is a DNR/DNI and comfort care measures only. In the bed opening his eyes on verbal commands he has a shallow breathing. Overall prognosis poor condition is critical. Waiting for hospice bed. 2018-patient is more sedated because of IV morphine. Patient is DNR/DNI and is also on comfort care measures. No acute changes in the last 24 hours. Nurse told me that there is a possibility that patient may go to [facility] today. Reason For Visit: COMMUNITY ACQUIRED PNEUMONIA Physical Exam Vital Signs: Temp Pulse Resp BP Pulse Ox 97.3 F 107 H 14 143/57 H 92 04/05/19 08:03 04/05/19 08:06 04/05/19 08:06 04/05/19 08:03 04/05/19 08:06 Intake & Output 04/04/19 04/05/19 04/06/19 06:59 06:59 06:59 Intake Total 2070 1250 1000 Balance 207 1250 1000 Weight 81.5 kg General appearance: PRESENT: no acute distress, thin Head exam: PRESENT: atraumatic Eye exam: PRESENT: other - Constricted but reactive. Mouth exam: PRESENT: moist, tongue midline Teeth exam: PRESENT: poor dentation Neck exam: ABSENT: carotid bruit, JVD, lymphadenopathy, thyromegaly Respiratory exam: PRESENT: decreased breath sounds Cardiovascular exam: PRESENT: tachycardia GI/Abdominal exam: PRESENT: normal bowel sounds, soft. ABSENT: distended, guarding, mass, organolmegaly, rebound, tenderness Rectal exam: PRESENT: deferred Extremities exam: PRESENT: full ROM. ABSENT: calf tenderness, clubbing, pedal edema Neurological exam: PRESENT: alert, awake, oriented to person, oriented to place, oriented to time, oriented to situation, CN II-XII grossly intact. ABSENT: motor sensory deficit Psychiatric exam: PRESENT: flat affect Results Laboratory Results: 04/04/19 06:03 04/04/19 06:03 03/26/19 03/26/19 03/28/19 21:30 21:30 06:57 Creatine Kinase 556 H 208 H Troponin I 0.062 03/29/19 03/30/19 06:50 05:45 Creatine Kinase 102 70 Troponin I Impressions: Shoulder X-Ray 03/26/19 21:05 IMPRESSION: 1. No acute findings. Cervical Spine CT 03/26/19 21:47 IMPRESSION: 1. No acute intracranial hemorrhage. 2. No acute fracture of the cervical spine. Thoracic Spine CT 03/26/19 21:47 IMPRESSION: No acute compression fracture of the thoracic spine. Abdomen/Pelvis CT 03/26/19 22:31 IMPRESSION: 1. Hepatic steatosis. Correlate with lab values. 2. Groundglass opacity and consolidation in the left lung base. Consider chest CT scan for complete evaluation. 3. Small pericardial effusion. 4. 11.0 mm solid pulmonary nodule. Consider a non-contrast Chest CT at 3 months, a PET/CT, or tissue sampling. Reference: Radiology. 2017; 284(1):228-43. Chest CT 03/28/19 00:00 IMPRESSION: Since the chest film on 03/26/2019, patient has collapse the left lung. There is now diffuse left lung pneumonia with parapneumonic pleural effusion. Findings are worrisome for postobstructive pneumonia from endobronchial tumor or hilar mass. Mediastinal adenopathy Head CT 03/30/19 00:00 IMPRESSION: No enhancing lesions.No hemorrhage.Similar encephalomalacia- hypodensity in the right temporoparietal region. EVIDENCE OF ACUTE STROKE: NO. Chest X-Ray 04/02/19 00:00 IMPRESSION: Left pleural effusion. Airspace disease in the left lower lobe and possibly the lingula. There does appear to be slight improvement since the earlier study. Assessment and Plan - Diagnosis (1) Pneumonia Qualifiers: Pneumonia type: due to unspecified organism Laterality: left Lung location: lower lobe of lung Qualified Code(s): J18.1 - Lobar pneumonia, unspecified organism Is this a current diagnosis for this admission?: Yes Plan: Post-obstructive. Chest CT showed progression of pneumonia while on Rocephin and Azithromycin. Antibiotics were switched to vancomycin and Zosyn yesterday. Mucomyst was also added. Continue scheduled breathing treatments. Pulmonology has been consulted for bronchoscopy. On vancomycin and Zosyn. 04/03/2019-patient has postobstructive pneumonia presently on IV vancomycin and Zosyn. Pulmonary consult was requested bronchoscopy but the patient does not want any bronchoscopy. Hospice referral was made. 04/04/2019-patient is getting treatment for postobstructive pneumonia presently is DNR/DNI and comfort care measures only. Plan is to discontinue IV antibiotic s. 04/05/2019-patient was treated with postobstructive pneumonia but he is presently on comfort care measures only antibiotics are discontinued from yesterday. (2) Endobronchial mass Is this a current diagnosis for this admission?: Yes Plan: Discussed with pulm who is planning to do bronchoscopy on Tuesday or Tuesday. Discussed with oncology who has recommended with MRI of the brain to rule out mets. Still unable to get hold of patient's . APS has been involved. 03/31: He is saturating well on room air. He says his SOB is better from yesterday. His fianceNeha is here on bedside and was updated about labs and finding of endobronchial mass and became upset and tearful. Patient is oriented to person, place and situation this morning. Discussed his code status in length. He expressed it makes him upset talking about these things. He expressed he does not want to be intubated and does not want defibrillation or chest compressions if he goes into cardiac arrest. This provider asked him to elaborate on this and is deemed competent at this particular encounter to make the decision that he is a DNR/DNI. He also expressed he wants his fianceNeha to be his surrogate decision maker if he is unable to make decisions. He has a step grandson but says he does not want him to be the surrogate decision maker. He is unequivocal about proceeding with bronchoscopy and need for temporary intubation for such procedure but expressed he would not want to pursue any major surgery on his chest if he does have cancer. 04/02: Discussed with patient and fiance on bedside again. He affirms that he is a DNR/DNI. Discussed possible cancer treatment options if the mass turned out to be malignant and patient expressed he does not want to pursue any surgery or chemotherapy. When asked why he would not want to, he expressed he does not want the burden of the treatments and does not want to burden his fiance as well of getting him thru these treatments. He now expressed he does not want to pursue bronchoscopy. Discussed hospice transition in length with patient and fiance. [place] prefers inpatient hospice as she says she cannot handle and deal with all these issues at home with him. Fidaisy expressed she wants his grandson notified about what's happening. We don't have any form of contact of his grandson at this time, will have planner chief help with this. Patient did express he does not want to have any other person as the surrogate decision maker and says his fiance (Neha) is his sole surrogate decision-maker. 04/03/2019-patient is DNR/DNI. Found to have endobronchial mass. With postobstructive pneumonia. Presently on IV vancomycin and Zosyn. Patient does not want any bronchoscopy or chemotherapy. As per the patient's request hospice referral was made. Patient is DNR/DNI. Patient's megan Solomon is the sole surrogate decision maker. 04/04/2019-patient is DNR/DNI and on comfort care measures patient refused all interventions. Dr. Beauchamp signed off from the case. 04/05/2019-patient is comfort care measures DNR/DNI he does not want any intervention. oncology signed off from the case. (3) Acute delirium Is this a current diagnosis for this admission?: Yes Plan: Secondary to pneumonia. 04/03/2019-patient is alert and awake communicating well. Acute delirium secondary to pneumonia is resolving. - Time Time Spent with patient: 25-34 minutes Medications reviewed and adjusted accordingly: Yes Anticipated discharge: Hospice
--- NOTE | 2019-04-05 12:26 | PDOC TRANSFER SUMMARY ---
General - Admit/Disc Date/PCP Admission Date/Primary Care Provider: 03/27/19 00:41 Discharge Date: 04/05/19 - Discharge Diagnosis (1) Pneumonia Is this a current diagnosis for this admission?: Yes Summary: Post-obstructive. Chest CT showed progression of pneumonia while on Rocephin and Azithromycin. Antibiotics were switched to vancomycin and Zosyn yesterday. Mucomyst was also added. Continue scheduled breathing treatments. Pulmonology has been consulted for bronchoscopy. On vancomycin and Zosyn. 04/03/2019-patient has postobstructive pneumonia presently on IV vancomycin and Zosyn. Pulmonary consult was requested bronchoscopy but the patient does not want any bronchoscopy. Hospice referral was made. 04/04/2019-patient is getting treatment for postobstructive pneumonia presently is DNR/DNI and comfort care measures only. Plan is to discontinue IV antibiotics. 04/05/2019-patient was treated with postobstructive pneumonia but he is presently on comfort care measures only antibiotics are discontinued from yesterday. (2) Endobronchial mass Is this a current diagnosis for this admission?: Yes Summary: Discussed with pulm who is planning to do bronchoscopy on Tuesday or Tuesday. Discussed with oncology who has recommended with MRI of the brain to rule out mets. Still unable to get hold of patient's . APS has been involved. 03/31: He is saturating well on room air. He says his SOB is better from yesterday. His fiGladis villace is here on bedside and was updated about labs and finding of endobronchial mass and became upset and tearful. Patient is oriented to person, place and situation this morning. Discussed his code status in length. He expressed it makes him upset talking about these things. He expressed he does not want to be intubated and does not want defibrillation or chest compressions if he goes into cardiac arrest. This provider asked him to elaborate on this and is deemed competent at this particular encounter to make the decision that he is a DNR/DNI. He also expressed he wants his fiGladis villace to be his surrogate decision maker if he is unable to make decisions. He has a step grandson but says he does not want him to be the surrogate decision maker. He is unequivocal about proceeding with bronchoscopy and need for temporary intubation for such procedure but expressed he would not want to pursue any major surgery on his chest if he does have cancer. 04/02: Discussed with patient and [place] on bedside again. He affirms that he is a DNR/DNI. Discussed possible cancer treatment options if the mass turned out to be malignant and patient expressed he does not want to pursue any surgery or chemotherapy. When asked why he would not want to, he expressed he does not want the burden of the treatments and does not want to burden his fiance as well of getting him thru these treatments. He now expressed he does not want to pursue bronchoscopy. Discussed hospice transition in length with patient and [place]. [place] prefers inpatient hospice as she says she cannot handle and deal with all these issues at home with him. [place] expressed she wants his grandson notified about what's happening. We don't have any form of contact of his grandson at this time, will have conference planner help with this. Patient did express he does not want to have any other person as the surrogate decision maker and says his [place] (Neha) is his sole surrogate decision-maker. 04/03/2019-patient is DNR/DNI. Found to have endobronchial mass. With postobstructive pneumonia. Presently on IV vancomycin and Zosyn. Patient does not want any bronchoscopy or chemotherapy. As per the patient's request hospice referral was made. Patient is DNR/DNI. Patient's megan Solomon is the sole surrogate decision maker. 04/04/2019-patient is DNR/DNI and on comfort care measures patient refused all interventions. Dr. Beauchamp signed off from the case. 04/05/2019-patient is comfort care measures DNR/DNI he does not want any intervention. oncology signed off from the case. (3) Acute delirium Is this a current diagnosis for this admission?: Yes Summary: Patient is sleeping comfortably in the bed receiving IV morphine and IV lorazepam as comfort care measures. Deeply sedated. Patient admitted for acute delirium secondary to postobstructive pneumonia and endotracheal mass. - Additional Information Resuscitation Status: Do Not Resuscitate Discharge Diet: Other (Comments) - Patient on comfort care measures Discharge Activity: Bedrest Home Medications: Lorazepam [Ativan Inj 2 mg/1 ml Vial] 1 mg IV Q2HP PRN vial 04/05/19 Morphine Sulfate [Morphine 10 mg/ml Inj] 2 mg IV Q2HP PRN vial 04/05/19 History of Present Illness Admission Date/PCP: 03/27/19 00:41 History of Present Illness: DANK CLINE is a 73 year old male 73 year old male who presented to the emergency room with a several day history of cough and dyspnea. He admits that for the last several days he is experienced a harsh cough productive of purulent sputum and dyspnea especially on exertion. He relates that he has been feeling subjectively feverish and it seemed so hot inside his house last night (03/25/2019) that he decided to lay down on the porch to sleep. His neighbors had noticed that his house lights were still on all night and they had not seen him throughout the day on 03/26/2019 so they went to investigate in the evening and found the patient still sleeping on his porch. They summoned EMS assuming he had fallen and that he was injured. EMS reports that his living situation is very unsanitary with bugs and fleas throughout the home and a dog still lying on the floor in the home. Campos guerrero is a very poor historian but denies prior similar episodes and has not identified any other aggravating or ameliorating factors for his current cough and dyspnea. In the emergency room he was found to have pulmonary hyperinflation and perihilar edema/pneumonia on the left side with an elevated white count and tachycardia as well as tachypnea. His serum lactate was slightly elevated at 2.7. Having met SIRS criteria and the patient will be admitted to the hospital for further evaluation and treatment. Physical Exam Vital Signs: Temp Pulse Resp BP Pulse Ox 97.3 F 107 H 14 143/57 H 92 04/05/19 08:03 04/05/19 08:06 04/05/19 08:06 04/05/19 08:03 04/05/19 08:06 Intake & Output 04/04/19 04/05/19 04/06/19 06:59 06:59 06:59 Intake Total 2069 1250 1000 Balance 2069 1250 1000 Weight 81.5 kg General appearance: PRESENT: no acute distress, disheveled, thin Head exam: PRESENT: atraumatic Eye exam: PRESENT: other - Pupils are constricted but reactive Mouth exam: PRESENT: moist, tongue midline Teeth exam: PRESENT: poor dentation Neck exam: PRESENT: carotid bruit Respiratory exam: PRESENT: other - Patient with shallow breathing. Cardiovascular exam: PRESENT: tachycardia GI/Abdominal exam: PRESENT: normal bowel sounds, soft. ABSENT: distended, guarding, mass, organolmegaly, rebound, tenderness Rectal exam: PRESENT: deferred Extremities exam: PRESENT: full ROM. ABSENT: calf tenderness, clubbing, pedal edema Neurological exam: PRESENT: alert, awake, oriented to person, oriented to place, oriented to time, oriented to situation, CN II-XII grossly intact. ABSENT: motor sensory deficit Psychiatric exam: PRESENT: appropriate affect, normal mood. ABSENT: homicidal ideation, suicidal ideation Results Laboratory Results: 04/04/19 06:03 04/04/19 06:03 03/26/19 03/26/19 03/28/19 21:30 21:30 06:57 Creatine Kinase 556 H 208 H Troponin I 0.062 03/29/19 03/30/19 06:50 05:45 Creatine Kinase 102 70 Troponin I Impressions: Shoulder X-Ray 03/26/19 21:05 IMPRESSION: 1. No acute findings. Cervical Spine CT 03/26/19 21:47 IMPRESSION: 1. No acute intracranial hemorrhage. 2. No acute fracture of the cervical spine. Thoracic Spine CT 03/26/19 21:47 IMPRESSION: No acute compression fracture of the thoracic spine. Abdomen/Pelvis CT 03/26/19 22:31 IMPRESSION: 1. Hepatic steatosis. Correlate with lab values. 2. Groundglass opacity and consolidation in the left lung base. Consider chest CT scan for complete evaluation. 3. Small pericardial effusion. 4. 11.0 mm solid pulmonary nodule. Consider a non-contrast Chest CT at 3 months, a PET/CT, or tissue sampling. Reference: Radiology. 2017; 284(1):228-43. Chest CT 03/28/19 00:00 IMPRESSION: Since the chest film on 03/26/2019, patient has collapse the left lung. There is now diffuse left lung pneumonia with parapneumonic pleural effusion. Findings are worrisome for postobstructive pneumonia from endobronchial tumor or hilar mass. Mediastinal adenopathy Head CT 03/30/19 00:00 IMPRESSION: No enhancing lesions.No hemorrhage.Similar encephalomalacia- hypodensity in the right temporoparietal region. EVIDENCE OF ACUTE STROKE: NO. Chest X-Ray 04/02/19 00:00 IMPRESSION: Left pleural effusion. Airspace disease in the left lower lobe and possibly the lingula. There does appear to be slight improvement since the earlier study. Transfer Plan - Disposition Transfer Plan: Patient is going to [facility] for comfort care measures. - Time Spent with Patient Time spent with patient: Greater than 30 Minutes Qualifiers - * PATIENT BEING DISCHARGED WITH ANY OF THE FOLLOWING DIAGNOSIS: No VTE patient discharged on overlapping Therapy?: No Acute Heart Failure Is this a Heart Failure Patient?: No Plan Time Spent: Greater than 30 Minutes
== END 2019-04-05 17:22 | DRG 194 ==
LOC: ER 20:03 → EH 03-27 00:41 → 3S 03-27 02:15
PROVIDERS: ADMIT Emergency Medicine; ATTEND Emergency Medicine
PROC: 5A09557 Assistance with Respiratory Ventilation, Greater than 96 Consecutive Hours, Continuous Positive Airway Pressure (ICD-10-PCS; principal; 2019-03-29)
DX: J18.9 Pneumonia, unspecified organism (principal); J44.0 Chronic obstructive pulmonary disease with (acute) lower respiratory infection; C34.02 Malignant neoplasm of left main bronchus; J44.9 Chronic obstructive pulmonary disease, unspecified; I10 Essential (primary) hypertension; R74.0 Nonspecific elevation of levels of transaminase and lactic acid dehydrogenase [LDH]; Z91.81 History of falling; D64.9 Anemia, unspecified; R41.0 Disorientation, unspecified; K75.81 Nonalcoholic steatohepatitis (NASH); Z66 Do not resuscitate; Z51.5 Encounter for palliative care; D72.829 Elevated white blood cell count, unspecified; Z90.49 Acquired absence of other specified parts of digestive tract
CPT/HCPCS: 36415; 70450; 70460; 71045; 71250; 72125; 72128; 74177; 80048; 80053; 80074; 80076; 80202; 80307; 81001; 82140; 82272; 82550; 82565; 82803; 82962; 83605; 83735; 84439; 84443; 84481; 84484; 85025; 85610; 85730; 86022; 87040; 87086; 93005; 93010; 94640; 94660; J0360; J0456; J0696; J1644; J1652; J2060; J2270; J2543; J2920; J2930; J3370; J3490; J7030; J7050; J7060; J7120; J7614